=== PATIENT | female | born 1985 | race Caucasian/White ===

== ENCOUNTER → 2022-04-21 10:23 | Outpatient (CLI) | payer BC, SELFPAY ==
--- NOTE | ~2022-04-21 | XR_ITS ---
EXAMINATION: XR chest 2V DATE: 04/21/2022 10:54 INDICATION: Cough and shortness of breath. TECHNIQUE: Frontal and lateral views of the chest were obtained. COMPARISON: Chest single view 02/23/2005 FINDINGS: The chest demonstrates clear lungs without pneumonia, pleural effusion, or pneumothorax. Th e heart size is normal. IMPRESSION: 1. No acute cardiopulmonary disease. Reviewed, dictated and finalized at location A. CTOR OF SPEECH PATHOLOGY
== END ==
PROVIDERS: PCP Physician Assistant; Visit Provider Physician Assistant
DX: R05.9 Cough, unspecified (principal)
CPT/HCPCS: 71046

== ENCOUNTER → 2022-09-21 10:45 | Outpatient (CLI) | payer BC, SELFPAY ==
--- NOTE | ~2022-09-21 | XR_ITS ---
EXAM: XR thoracic spine 3V DATE: 09/21/2022 11:11 HISTORY: PAIN IN THORACIC SPINE x 2 mos w/o injury . COMPARISON: None available. FINDINGS: Mild scoliosis. Vertebral body alignment intact. Vertebral body heights preserved. No disc space narrowing. No traumatic malalignment or fracture. Visualized lung parenchyma is clear. IMPRESSION: Unremarkable thoracic spine radiograph findings. Reviewed, dictated and finalized at location K.
== END ==
PROVIDERS: PCP Physician Assistant; Visit Provider Physician Assistant
DX: M54.6 Pain in thoracic spine (principal)
CPT/HCPCS: 72072

== ENCOUNTER 2024-04-19 10:17 | Outpatient (CLI) | payer BC, SELFPAY ==
--- NOTE | ~2024-04-19 | US_ITS ---
EXAM: Focused ultrasound examination of the soft tissues of the right wrist HISTORY: GANGLION CYST OF R WRIST TECHNIQUE: Sonographic evaluation of the soft tissues of the right wrist were performed assessing gra yscale appearance and color Doppler flow. COMPARISON: None. FINDINGS: Within the area of clinical concern is a well-circumscribed focus of mixed echogenicity measuring 17 x 5.2 x 12 mm. This area demonstrates thickened severino. No pedicle is demonstrated on static imaging. Cine images demonstrate the presence of a pedicle, as well as nerve fibers for which the presence of a ganglion cyst is suspected. IMPRESSION: Focused ultrasound examination of the area of clinical concern are most suspicious for a ganglion cys t along the volar surface of the right wrist. If clinical suspicion persists, further evaluation with MRI may be performed. Reviewed, dictated and finalized at location A. [employer]IST IMPRESSION: Focused ultrasound examination of the area of clinical concern are most suspici ous for a ganglion cyst along the volar surface of the right wrist. If clinical suspicion persists, further evaluation with MRI may be performed.
== END 2024-04-19 10:18 | disposition home or self-care (01) ==
LOC: GOSHIMG 10:17
PROVIDERS: PCP Plastic Surgery; Visit Provider Physician Assistant
DX: M67.431 Ganglion, right wrist (principal)
CPT/HCPCS: 76882

== ENCOUNTER 2024-04-23 10:06 | Outpatient (CLI) | payer BC, SELFPAY ==
--- NOTE | ~2024-04-23 | XR_ITS ---
EXAMINATION: XR hand RT min 3V DATE: 04/23/2024 10:27 INDICATION: Ganglion, right wrist. TECHNIQUE: 3 views of right hand were obtained. COMPARISON: None. FINDINGS: Alignment is normal. No fracture. Joint spaces are normal. IMPRESSION: 1. Normal right hand. Reviewed, dictated and finalized at location A. RANCE COLLECTOR IMPRESSION: 1. Normal right hand.
--- OUTSIDE RECORDS SUMMARY | 2024-04-23 10:16 | XMS_ITS | Data Portability ---
Author Organization [facility] BRUNA[facility] Ann Address [address] [facility] [place] [address] Care Team Providers Care Coconut Boiler Name Role Phone LUPIS IRELAND Primary Care Provider Unavailab le Assessment Encounter Date Assessment Date Assessment LastModified by Organization Details LastModified Time 10/25/2023 10/25/2023 eye exam due dental UTD pap smear this fall mammogram will be due labs due. [email or web address] Not available 10/25/2023 15:03:53 Plan of Treatment Reminders Order Date Submit Date Provider Last Modified By Organization Details Last Modified Time Details Appointments None recorded. Lab PPD (purified protein derivative ), skin test 2023 024 SHAHIDA In-Office Order, Internal Use Only DO Not Attach Compendium DO Not Attach Compendium, Do Not Delete/merge, [id number] 4 10:20:48 amylase, serum or plasma 2023 024 [email or web address] [facility], [address], [place], [address], 5 11:34:48 lipase, serum or plasma 2023 024 [email or web address] [facility], [address], [place], [address], 5 11:34:49 CMP, serum or plasma 2023 024 [email or web address] [facility], [address], [place], [address], 5 11:34:49 CBC w/ auto diff 2023 024 [email or web address], [address], [place], [address], 5 11:34:49 TSH + free T4, serum 2023 024 [email or web address] [facility], [address], [place], [address], 5 14:55:39 HbA1c (hemoglobi n A1c), blood 2023 024 [email or web address] [facility], [address], [place], [address], 5 11:34:49 lipid panel, serum 2023 024 [email or web address], [address], [place], [address], 5 11:34:49 Referral hand surgeon referral 2024 025 PAUL Estrada MD, [address] [facility] [address], [place], [address], 11:46:34 Procedures None recorded. Surgeries None recorded. Imaging US, wrist 2024 025 [facility], [facility] [facility], [address], [place], [address], 5 08:52:29 XR, chest, 2 view [address] [facility], [address], [address], [place], [address], 5 11:35:23 US, gallbladde r 2023 024 [facility], [facility], [address], [place], [address], 5 11:35:23 Medication Orders Tubersol 5 tub. unit/0.1 mL intraderma l injection solution 2023 024 [email or web address] Not available 4 12:12:02 famotidine 40 mg tablet 2023 024 [email or web address] [facility], [address] [place], [address], 4 21:40:47 Linzess 145 mcg capsule 2023 025 [facility], [address] [place], [address], 5 10:37:35 Qulipta 60 mg tablet 2023 024 [facility], [address] [place], [address], 4 12:56:53 alprazolam 0.25 mg tablet 2023 025 [facility], [address] [place], [address], 5 10:37:47 Patient TargetsNo targets recorded. Patient InstructionsNo instructions recorded. Reason for Referral Hand Surgeon Referral for Ga nglion cyst of right wrist consult on right wrist cyst. Referring Physician: uLpis Ireland, Internal Medicine, Encounter Date: 04/01/2024 Results Created Date Observation Date Name Description Value Unit Range Abnormal Flag Note LastModifiedBy Organization Detail LastModifiedTime 02/29/20 24 02/29/2024 PPD (raj fied prote in deriv ative ), skin test Result Negati ve Not Available In-Office Order Internal Use Only DO Not Attach Compendium DO Not Attach Compendium, Do Not Delete/merge, [id number] 02/26/2024 11:42:30 04/22/19 25 04/19/2024 US, wrist No observ ation record ed. [email or web address] [facility] [address] [facility] [address], [place], [address], 04/22/2024 15:32:27 Result Notes None recorded. Problems Name Problem SNOMED Code Status Onset Date Resolution Date Notes Provider Name and Address Organization Details Recorded Time Body mass index 25-29 - overweight 167514329 Active 2023 KINSEY Leblanc Attn: Cintia thompson,[address] [facility], [place], [address], [place] [facility] 4 14:54:14 Hyperlipide zainab 03694427 Active 2023 KINSEY Leblanc Attn: Cintia thompson,[address] [facility], [place], [address], [place] [facility] 4 12:55:08 Migraine 56598582 Active 2023 KINSEY Leblanc Attn: Cintia thompson,[address] [facility], [place], [address], [place] [facility] 4 12:55:10 Irritable bowel syndrome characteriz ed by constipsean n 418766500 Active 2023 KINSEY Leblanc Attn: Cintia thompson,[address] [facility], [place], [address], [place] [facility] 4 12:56:15 Feeling stressed 492009043 Active 2023 KINSEY Leblanc Attn: Cintia thompson,[address] [facility], [place], [address], [place] [facility] 4 12:56:24 Long-term drug therapy Active 2023 KINSEY Leblanc Attn: Cintia thompson,[address] [facility], [place], [address], [place] [facility] 4 12:56:40 Ganglion cyst of right wrist 7039490124229 09 Active 2024 KINSEY Leblanc Attn: Cintia thompson,[address], [place], [address], [place] [facility] 08:10:35 Problem Notes None recorded. Procedures Surgical History Date Name Laterality Status Provider Name and Address Organization Details Recorded Time section completed Buzz Morrow [place] - [facility] 10/25/2023 14:31:43 Imaging Results Imaging Date Name Status LastModified by Organizatio n Details LastModified Time 04/19/2024 US, wrist active [email or web address] [facility] [address] [facility] [address], [place], [address], 04/22/2024 15:32:27 Procedure Notes None recorded. Medical Equipment None Reported. Allergies Allergen ID Allergen Name Allergen Category Reaction Reaction Severity Criticality Documentation Date Start Date Code Code System Note Provider Name and Address Organization Details Recorded Time 839807 phentolam ine mesylate medicatio n Not available Not available Not available 10/25/2023 08195 0 RxNorm Not Available Not Available Not Available 709359 Reglan medicatio n Not available Not available Not available 10/25/2023 9230 RxNorm Not Available Not Available Not Available Medications Name Sig Start Date Stop Date Status Note LastModified by Organization Details LastModified Time Prescriptio n - Prior Authorizati on Request 10/24 completed Not Available Not Available Not Available azithromyci n 250 mg tablet 02/25 completed Not Available Not Available Not Available tizanidine 4 mg tablet 04/01 completed Not Available Not Available Not Available famotidine 40 mg tablet TAKE 1 TABLET BY MOUTH EVERY DAY active Not Available Not Available No t Available prednisone 20 mg tablet 02/25 completed Not Available Not Available Not Available Tubersol 5 tub. unit/0.1 mL intradermal injection solution Inject 0.1 mL by intraderm al route. 02/25 completed Not Available Not Available Not Available alprazolam 0.25 mg tablet Take 1 tablet twice a day by oral route as needed. 04/01 completed Not Available Not Available Not Available rosuvastati n 5 mg tablet Take 1 tablet every day by oral route. active Not Available Not Available No t Available rosuvastati n 10 mg tablet Take 1 tablet every day by oral route. 10/24 completed Not Available Not Available Not Available Linzess 145 mcg capsule 04/01 completed Not Available Not Available Not Available Ubrelvy 100 mg tablet take 1 tab po at onset of migraine, may repeat in 1 hour if needed. max 200mg/24 hours active Not Available Not Available No t Available Qulipta 60 mg tablet Take by oral route for 90 days. active Not Available Not Available No t Available Vitals Date Recorded Body height Body mass index (BMI) Body weight Respiratory rate Oxygen saturation Oxygen saturation in Arterial blood by Pulse oximetry Heart rate Systolic blood pressure Diastolic blood pressure Provider Name and Address Organization Details Last Updated DateTime 4 165.1 cm 25.5 kg/m2 45141.9 2 g 20 /min 100 % 100 % 84 /min 128 mm[Hg] 88 mm[Hg] Buzz Morrow MA [facility] 4 14:33:40 Date Recorded Systolic blood pressure Diastolic blood pressure Systolic blood pressure Diastolic blood pressure Provider Name and Address Organization Details Last Updated DateTime 10/25/2023 120 mm[Hg] 84 mm[Hg] 120 mm[Hg] 80 mm[Hg] KINSEY Leblanc Attn: [place], [address] , [facility] 4 14:59:11 Date Recorded Body height Body mass index (BMI) Body weight Oxygen saturation Oxygen saturation in Arterial blood by Pulse oximetry Heart rate Systolic blood pressure Diastolic blood pressure Provider Name and Address Organization Details Last Updated DateTime 5 165.1 cm 26.5 kg/m2 31463.1 9 g 100 % 100 % 113 /min 122 mm[Hg] 82 mm[Hg] Buzz Morrow MA [facility] 5 10:41:50 Social History Question Answer Notes LastModified by Organizat ion Details LastModified Time Tobacco Smoking Status Never Smoker Buzz Morrow MA null, [facility] 10/25/2023 14:29:44 Do You Have An Advance Directive? No Information not available 10/25/2023 What Is Your Level Of Alcohol Consumption? None Information not available 10/25/2023 Are You Blind Or Do You Have Difficulty Seeing? No Glasses Information not available 10/25/2023 What Is Your Level Of Caffeine Consumption? Occasional Coffee, Soda Information not available 10/25/2023 In The 14 Days Before Symptom Onset, Have You Had Close Contact With A Laboratory-confi rmed COVID-19 While That Case Was Ill? No Information not available 10/25/2023 In The 14 Days Before Symptom Onset, Have You Had Close Contact With A Person Who Is Under Investigation For COVID-19 While That Person Was Ill? No Information not available 10/25/2023 Have You Been To An Area Known To Be High Risk For COVID-19? No Information not available 10/25/2023 Are You Currently Employed? Yes Information not available 10/25/2023 Are You Deaf Or Do You Have Serious Difficulty Hearing? No Information not available 10/25/2023 What Type Of Diet Are You Following? REGULAR Information not available 10/25/2023 What Is Your Occupation? [employer]/ [employer] Information not available 10/25/2023 Are There Any Guns Present In Your Home? No Information not available 10/25/2023 What Was The Date Of Your Most Recent Tobacco Screening? 04/01/2024 Information not available 04/01/2024 Do You Use Your Seat Belt Or Car Seat Routinely? Yes Information not available 10/25/2023 Do You Have Smoke And Carbon Monoxide Detectors In Your Home? Yes Information not available 10/25/2023 Do You Use Any Illicit Or Recreational Drugs? No Information not available 10/25/2023 Do You Use Sunscreen Routinely? Yes Information not available 10/25/2023 Has Tobacco Cessation Counseling Been Provided? No Information not available 10/25/2023 Do You Or Have You Ever Used Any Other Forms Of Tobacco Or Nicotine? No Information not available 10/25/2023 Sex: Female Functional Status Question Answer Note LastModified by Organizat ion Details LastModified Time Are you able to care for yourself? Yes Information not available 10/25/2023 What is your exercise level? Occasional 2-3 x a week Information not available 10/25/2023 Mental Status None recorded. Family History Relationship Description Onset Age of this Age Resolved Age Notes LastModified by Organization Details LastModified Time Maternal Uncle Hypertensive disorder tcarterma Not available 2023 14:28:50 Father Hypercholest erolemia tcarterma Not available 2023 14:28:59 Maternal Grandmother Diabetes mellitus tcarterma Not available 2023 14:29:07 Maternal Grandfather Diabetes mellitus tcarterma Not available 2023 14:29:07 Maternal Grandfather Disorder of thyroid gland tcarterma Not available 2023 14:29:21 Paternal Grandmother Diabetes mellitus tcarterma Not available 2023 14:29:11 Paternal Grandfather Diabetes mellitus tcarterma Not available 2023 14:29:14 Unspecified Relation Malignant tumor of colon tcarterma Not available 2023 14:29:40 Medical History Condition Response Anemia N High Blood Pressure Y Atrial Fibrillation N High Cholesterol Y Acid Reflux (GERD) N Cancer N Headaches Y COPD N Gynecological History Statement/Question Response Flow Moderate Date of LMP 03/11/2024 Menses Monthly Y Duration of Flow (days) 3 Current Control Method None LMP Approximate Obstetrics History GPAL:G 2 P 0 0 0 1 Type Value Full Term 0 Induced 0 Spontaneous 0 Premature 0 Living 1 Ectopics 0 Total 2 Immunizations Vaccine Type Date Status Note Provider Nam e and Address Organization Details Recorded Time Influenza, MDCK, quadrivalent, PF 03/04/2021 completed DARYL Vill[place], [place] [facility] 12/27/2023 13:12:56 COVID-19 vaccine, vector-nr, rS-Ad26, PF, 0.5 mL 06/04/2020 completed Buzz Morrow [place] null, [place] [facility] 12/27/2023 13:12:56 Tdap 06/17/2019 completed DARYL Vill[place]ueva, [place] [facility] 12/27/2023 13:12:56 Influenza, split virus, quadrivalent, PF 01/21/2020 completed Buzz Morrow MA null, [place] - [facility] 12/27/2023 13:12:56 Influenza, split virus, trivalent, PF 02/26/2024 completed KINSEY Leblanc Attn: Accounting[address] [facility], [place], [address], [place] [facility] 03/28/2024 21:02:32 Past Encounters Encounter ID Performer Location Encounter Start Date Encounter Closed Date Diagnosis/Indication Diagnosis SNOMED-CT Code Diagnosis ICD10 Code Diagnosis Note [id number] KINSEY Leblanc [facility] [place] [address] [place] [address] 10/25/2023 14:15:53 10/25/2023 15:35:14 Body mass index 25-29 - overweight 762303534 Z68.25 Being is 25.5 Adult heal th examination 185635617 Z00.01 Annual wellness exam complete Persistent cough 1845452 02 R05.3 Patient reports 4 months of a cough that is wax and wane but has not resolved. We will check a baseline chest x-ray which the patient has been notified is not entirely diagnostic and CT scan of the chest will be pursued if needed. We will also start famotidine 40 mg daily empiricall y in case this is coming from a silent reflux drip and cough. Hyperlipidemia 27166197 E78.5 Patient is stable on rosuvastat in 5 mg daily and updated fasting lipid panel is due Migraine 94743299 G43.90 9 hx of failing: triptans, triptan nasal spray, topamax with side effects severe, and nsaid, and OCPs. ubrelvy works but still having > 14 headaches per month. Trial of qulipta 60mg daily. Long-term drug therapy 329214625 Z79.899 Labs ordered Nausea and vomiting 1693 1999 R11.2 Check amylase lipase, CMP and CBC and refer for ultrasound of the gallbladde r to evaluate nausea and vomiting Irritable bowel syndrome characterized by constipation 083449923 K58.1 Refill Linzess 145 mcg daily which has worked well for the patient in the past Diabetes m ellitus screening 615644741 Z13.1 A1c lab screening due for diabetes risk assessment Thyroid di sorder screening 168754187 Z13.29 Routine thyroid function panel ordered Feeling stressed 1945279 06 Z73.3 Prescripti on for p.r.n. alprazolam 0.25 mg twice daily as needed for breakthrou gh stress and anxiety [id number] KINSEY Leblanc [facility] [employer] [facility] [place] [address] [place] [address] 02/26/2024 10:52:05 02/26/2024 15:08:22 Administration of influenza vaccine 32048703 Z23 Tuberculos is screening 308599056 Z11.1 [id number] KINSEY Leblanc [facility] [employer] [facility] [place] [address] [place] [address] 04/01/2024 10:21:37 04/01/2024 11:41:56 Ganglion cyst of right wrist 8620266788 82400 M67.431 Check ultrasound of the right wrist to evaluate and confirm presence of ganglion cyst and then refer to hand specialist Health Concerns Section Related Observation LastModified by Organization Detai ls LastModified Time None Recorded Concern Status LastModified by Organization Details LastModified Time None Recorded Advance Directives Directive N: Payers Encounter Date Sequence Insurance Name Policy Number Policy Craft Covered Member ID Craft Member ID Guarantor Name 10/25/2023 1 [place] [id number] Crystal Reznack [id number] Crystal Reznack 02/26/2024 1 [place] [id number] Crystal Reznack [id number] Crystal Reznack 04/01/2024 1 [place] [id number] Mibio Reznack [id number] Mibio Reznack Notes Date Note Type Note Provider Name and Address Organization Details Recorded Time 4 text/html CoughReported bypatient.Severity:improvi ng Timing:better Context:non-smoker Associated Symptoms:no fever; no chills; no chest pain; no heartburn; no edema; no agitation; no wheezing; no post nasal drip;nausea;vomitingNotes: x 4 monthHeadacheReported bypatient.Notes:Patient also is stable on Ubrelvy 100 mg as needed therapy and is still having significant amount of headaches per month greater than 14 per month. She has an extensive history of trying and failing multiple options. We will discuss this in the assessment and plan with new treatment options available to her.HyperlipidemiaReported bypatient.Notes:Patient is taking rosuvastatin 5 mg daily for her hyperlipidemia. IBS with constipation-patient has been stable on Linzess 145 mcg daily. Nausea and vomiting are a new complaint that patient has reported today on review of systems and HPI. She is concerned about her gallbladder and would like to have this evaluated along with lab work. Patient is overall having some increased stress in her life and she does not want something for daily treatment but is looking for something on an as-needed basis. KINSEY Leblanc Attn: Accounting,[address] [facility], [place], [address], [facility] [place] 11/05/2023 12:57:58 5 text/html Musculoskeletal PainReported bypatient.Location:right arm Severity:worsening Duration:present <1 month Timing:constant Context:overuse Aggravating factors:movement/positioni ng Associated Symptoms:no fever; no weak limbs; no tinglingNotes:c\o growth on R lateral thumb area, noticed last week, having pains at times, is able to use it, Pt states that on she noticed some pain in her arm and she started holding it and noticed the nodule, States that it has progressively gotten worse pain radiates into her wrist/ forearm and down thumb She has had some numbness and tingling but the pain is the main issue. KINSEY Leblanc Attn: Accounting,[address] [facility], [place], [address], [facility] [place] 04/08/2024 08:11:29 OBGyn Episode No OBEpisode recorded.
--- OUTSIDE RECORDS SUMMARY | 2024-04-23 10:16 | XMS_ITS | Referral Summary ---
Author Organization [facility] [address] [facility] Address [address] [place] [address] Care Team Providers Care Key Account Executive Name Role Phone Ryan Delgadoden EUCEDA Primary Care Pr ovider Shukri Law MD Unavailable [phone] Eric Mohr MD Unavailable [phone] Encounters Date Type Department Care Team Description 03/20/2024 Telephone [facility] Maternal- Medicine [address] [facility] Outpatient Health 7th Floor [address] [place] [address] Mercedes Eason CMA Ultrasound from Last 3 Months Allergies Active Allergy Reactions Criticality Noted Date Comments Metoclopramide Hives,Anxiety Medium 12/09/2015 Metoclopramide Rash,Itching Medium 01/01/2019 Medications Ubrelvy 100 mg tablet 03/04/20 22 Active ondansetron ODT (ZOFRAN-ODT) 4 mg disintegrating tablet Take 1 tablet (4 mg total) by mouth every 8 (eight) hours as needed for nausea or vomiting 20 tablet 04/14/19 23 Active Additional Information Patient not taking.Reported on 01/04/2024 ibuprofen (ADVIL,MOTRIN) 800 mg tablet TAKE 1 TABLET (800 MG TOTAL) BY MOUTH ONCE FOR 1 DOSE TAKE ONE TABLET 30 MIN PRIOR TO PROCEDURE 04/14/19 23 Active oxyCODONE (ROXICODONE) 5 mg immediate release tablet 04/16/19 23 Active doxycycline monohydrate (MONODOX) 100 mg capsule TAKE 1 CAPSULE BY MOUTH IN THE MORNING AND 2 CAPSULES AT NIGHT BEFORE PROCEDURE 04/14/19 23 Active Qulipta 60 mg tablet 11/08/19 24 Active rosuvastatin (CRESTOR) 5 mg tablet Take 1 tablet (5 mg total) by mouth daily Active Active Problems Problem Noted Date Diagnosed Date Abnormal liver enzymes 03/31/2022 Chronic constipation 03/31/2022 Fatigue 03/31/2022 Muscle fatigue 03/31/2022 Overweight with body mass index (BMI) 25.0-29.9 03/31/2022 Poor concentration 03/31/2022 Vitamin D deficiency 03/31/2022 COVID-19 08/16/2021 Abnormal weight gain 06/30/2021 Hyperinsulinism 06/30/2021 Migraine 06/30/2021 Hyperlipidemia 04/07/2021 Acute contact dermatitis 01/15/2019 Multiple joint pain 01/01/2019 Overview (03/31/2022): Follow up after OBGYN appt so will know at C2 if we can get x-rays. Assessment & Plan (01/01/2019 11:54 AM CDT): Patient presents with a reported negative KIESHA and positive HLA-B27. Reports spinal and hip pain, peripheral joint pain and swelling, fatigue, SOB with stairs, dry eyes, Raynaud's, photosensitive facial rash, and brain fog. Getting Echo via pcp. Swelling and tenderness noted in a few MTP joints and tenderness in a few MCP joints on exam today. Lumbar spine and SI joints are tender and patient reports improvement in pain and stiffness with activity.Takes aleve otc with minimal benefit. Patient may be newly so will avoid x-rays. Symptoms and exam are suspicious for a spondyloarthritis vs CTD. Bilateral external hip pain is suspicious for trochanteric bursitis. Will order appropriate serologies and a right hand/wrist US to further evaluate. Follow up in 2 weeks. Sooner if needed. Seen with Dr. Mohr. 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 Expectant management: [] Mode of delivery: [] For C/S bottle of CHG 4% and hand out provided @ 36wks Teaching: [x] 1st visit [] 28-30 week [] 36 week care following delivery 07/19/2019 09/02/2019 Overview (07/23/2019): # ID: Afebrile. No signs/symptoms of infection. # Heme: EBL 800 mL. No symptoms acute blood loss anemia. # CV/Pulm: Pre-eclampsia with severe features - S/p 24hr PP magnesium sulfate. Initiated on NXL 30 daily, increased to 60mg on 07/21, now with BPs w/c (2 MR in 24 hours since nifed increased). CBC/CMP WNL, 24hr urine protein 177. Enrolled in home BP monitoring program. # GI/: Tolerating PO. Voiding spontaneously. # Pain: Pain is better controlled with APAP, ibuprofen, flexeril, oxycodone and gabapentin. Added lidocaine patch 07/21. # Post DVT prophylaxis: Patient has the following moderate risk factors: Age>35, BMI>30 and Preeclampsia. Her post prophylaxis plan is SCDs and early ambulation # MOC: Desire IUD at 6w PP visit # MOF: # Disposition: Continue routine postoperative care. Anticipate discharge today. # Nephrolithiasis: Continue home Flomax daily. Gestational hypertension, third trimester 07/06/2019 09/02/2019 Overview (07/06/2019): 07/06/19 multiple elevated blood pressures at home. Normotensive in [facility] with normal labs complicated by nep hrolithiasis in second trimester, antepartum 04/29/2019 06/24/2021 Supervision of other normal , antepartum 12/31/2018 09/02/2019 Overview (07/17/2019): -GHTN dx @ 32 wks. For twice weekly testing, weekly labs, growth q 3 weeks and 37 wk IOL - IOL 08/11/2019 @ 2000, pt aware. Polyhydramnios dx @ 33wks- weekly US/BPP 07/16 AGA 76% mild poly EDWAR 26 for repeat EDWAR in 1 week [x] Labs:1st trimester completed [x] Genetic Screening: CffDNA:Low probability [x] Baby ASA: YES- AMA and nullip [x] 1hr GCT at 24-28wks: 134 [x] Tdap (27-36wks): 06/17/2019 AE [] Flu Shot: [] Rhogam (if Rh neg): n/a, O+ [] GBS at 36 wks: [] [] control method: [] 39 weeks discussion of IOL vs. Expectant management: [] Mode of delivery: No circ: Girl Abnormal uterine bleeding 12/20/2016 Immunizations Immunization Administration Dates Next Due Tdap 06/17/2019 Social History Tobacco Use Types Packs/Day Years Used Date Smoking Tobacco: Never Smokeless Tobacco: Never Tobacco Cessation:Counseling Given: Not Answered Alcohol Use Standard Drinks/Week Comments Not Currently 0 (1 standard drink = 0.6 oz pur e alcohol) 1 glass of wine a month AUDIT-C Answer Date Recorded Frequency of Alcohol Consumption Not on file 01/04/2024 Q2: How many drinks containi ng alcohol do you have on a typical day when you are drinking? Patient does not drink Frequency of Binge Drinking Not on file 12/06 [place] Depression Scale Answer Date Recorded [place] Depression Scale Total 2 09/02/2019 The thought of harming myself has occurred to me . Never 09/02/2019 Comments No Sex and Gender Information Value Date Recorded Sex Assigned at Female 01/04/2024 10:50 AM CDT Legal Sex Female 8:31 AM MANAGING DIRECTOR ATLAS Gender Identity Female 01/04/2024 10:50 AM CDT Sexual Orientation Straight 02/07/2019 9: 13 AM MANAGING DIRECTOR ATLAS Last Filed Vital Signs Vital Sign Reading Time Taken Comments Blood Pressure 136/88 01/04/2024 10:44 AM CDT Pulse 91 04/06/2022 11:26 AM MANAGING DIRECTOR ATLAS Temperature 36.8 C (98.2 F) 04/06/2022 11:26 AM MANAGING DIRECTOR ATLAS Respiratory Rate 20 04/06/2022 11:2 6 AM MANAGING DIRECTOR ATLAS Oxygen Saturation 99% 04/06/2022 11: 26 AM MANAGING DIRECTOR ATLAS Inhaled Oxygen Concentration - - Weight 75.2 kg (165 lb 12.8 oz) 024 10:44 AM CDT Height 165.1 cm (5' 5 ) 01/04/2024 10:4 4 AM CDT Body Mass Index 27.59 01/04/2024 10:44 AM CDT Plan of Treatment Not on file Procedures Procedure Name Priority Date/Time Associated Diagnosis Comments 17 HYDROXYPROGESTERONE Routine 9:37 AM MANAGING DIRECTOR ATLAS Abnormal uterine bleeding (AUB) DHEA-SULFATE Routine 04/15/2024 9:37 AM MANAGING DIRECTOR ATLAS Abnormal uterine bleeding (AUB) TESTOSTERONE, TOTAL AND FREE, SERUM Routine 04/15/2024 9:37 AM MANAGING DIRECTOR ATLAS Abnormal uterine bleeding (AUB) LUTEINIZING HORMONE (LH) Routine 025 9:37 AM MANAGING DIRECTOR ATLAS Abnormal uterine bleeding (AUB) ESTRADIOL Routine 04/15/2024 9:37 AM MANAGING DIRECTOR ATLAS Abnormal uterine bleeding (AUB) CBC WITH AUTO DIFFERENTIAL Routine 04/15 9:37 AM MANAGING DIRECTOR ATLAS Abnormal uterine bleeding (AUB) HEMOGLOBIN A1C Routine 04/15/2024 9:34 AM MANAGING DIRECTOR ATLAS Abnormal uterine bleeding (AUB) FOLLICLE STIMULATING HORMONE Routine 04/15/2024 9:34 AM MANAGING DIRECTOR ATLAS Abnormal uterine bleeding (AUB) THYROID FUNCTION CASCADE Routine 025 9:34 AM MANAGING DIRECTOR ATLAS Abnormal uterine bleeding (AUB) HIGH RISK HPV DNA DETECTION WITH GENOTYPING Routine 01/04/2024 11:46 AM CDT Cervical cancer screening HEPATITIS C AB W/REFL TO HCV RNA, QN, PCR (REFL) Routine 01/01/2019 11:49 AM CDT from Last 3 Months or Most Recently Relevant to Health Maintenance Results * (ABNORMAL) CBC with auto differential (04/15/2024 9:37 AM MANAGING DIRECTOR ATLAS) WBC 4.3 3.8 - 10.8 Thousand/u L [facility] RBC, POC 4.91 3.80 - 5.10 Million/uL [facility] Hgb 14.6 11.7 - 15.5 g/dL [facility] Hct 45.9(H) 35.0 - 45.0 % [facility] MCV 93.5 80.0 - 100.0 fL [facility] MCH 29.7 27.0 - 33.0 pg [facility] MCHC 31.8(L) 32.0 - 36.0 g/dL [facility] Comment: For adults, a slight decrease in the calculated MCHC value (in the range of 30 to 32 g/dL) is most likely not clinically significant; however, it should be interpreted with caution in correlation with other red cell parameters and the patient's clinical condition. Rdw 12.0 11.0 - 15.0 % [facility] Platelets 288 140 - 400 Thousand/u L [facility] MPV 10.5 7.5 - 12.5 fL [facility] Neutrophils, abs 2,614 1,500 - 7,800 cells/uL [facility] Lymphocytes, abs 1,415 850 - 3,900 cells/uL [facility] Monocyte abs 241 200 - 950 cells/uL [facility] Eosinophils, abs 9(L) 15 - 500 cells/uL [facility] Basophils, abs 22 0 - 200 cells/uL [facility] Neutrophils 60.8 % [facility] Lymphocyte pct 32.9 % [facility] Monocytes 5.6 % [facility] Eosinophils 0.2 % [facility] Basophils 0.5 % [facility] Blood 04/15/2024 9:37 AM MANAGING DIRECTOR ATLAS 04/15/2024 9:37 AM MANAGING DIRECTOR ATLAS Narrative [facility] - 04/21/2024 7:52 PM MANAGING DIRECTOR ATLAS FASTING:YES FASTING: YES Jaylyn Gibbs MD LAB BLOOD ORDERABLES Fi nal Result Performing Organization Address City/[facility]/ZIP Co de Phone Number [facility] [address] [place] [address] * 17-Hydroxyprogesterone (04/15/2024 9:37 AM MANAGING DIRECTOR ATLAS) 17-hydroxyproges terone 33 ng/dL [facility], Comment: Adult Female Reference Ranges for 17-Hydroxyprogesterone: Pre-Menopausal Mid Follicular: 23-102 ng/dL Pre-Menopausal Surge: 67-349 ng/dL Pre-Menopausal Mid Luteal: 139-431 ng/dL Postmenopausal Phase: < or = 45 ng/dL : First Trimester: 78-457 ng/dL Second Trimester: 90-357 ng/dL Third Trimester: 144-578 ng/dL This test was developed and its analytical performance characteristics have been determined by [facility]. It has not been cleared or approved by FDA. This assay has been validated pursuant to the CLIA regulations and is used for clinical purposes. Blood 04/15/2024 9:37 AM MANAGING DIRECTOR ATLAS 04/15/2024 9:37 AM MANAGING DIRECTOR ATLAS Narrative [facility] - 04/21/2024 7:52 PM MANAGING DIRECTOR ATLAS FASTING:YES FASTING: YES Jaylyn Gibbs MD LAB BLOOD ORDERABLES Fi nal Result Performing Organization Address [facility]/ZIP Co de Phone Number [facility], [address] [place] [address] * DHEA-sulfate (04/15/2024 9:37 AM MANAGING DIRECTOR ATLAS) DHEA-S 97 19 - 237 mcg/dL [facility] Blood 04/15/2024 9:37 AM MANAGING DIRECTOR ATLAS 04/15/2024 9:37 AM MANAGING DIRECTOR ATLAS Narrative [facility] - 04/21/2024 7:52 PM MANAGING DIRECTOR ATLAS FASTING:YES FASTING: YES us Jaylyn Gibbs MD LAB BLOOD ORDERABLES Fi nal Result [facility] [address] [place] [address] * Estradiol (04/15/2024 9:37 AM MANAGING DIRECTOR ATLAS) Pathologist [facility] Estradiol 70 pg/mL [facility] Comment: Reference Range Follicular Phase: 19-144 Mid-Cycle: 64-357 Luteal Phase: 56-214 Postmenopausal: < or = 31 Reference range established on post-pubertal patient population. No pre-pubertal reference range established using this assay. For any patients for whom low Estradiol levels are anticipated (e.g. males, pre-pubertal children and hypogonadal/post-menopausal females), the [facility] Estradiol, Ultrasensitive, LCMSMS assay is recommended (order code 29708). Please note: patients being treated with the drug fulvestrant (Faslodex(R)) have demonstrated significant interference in immunoassay methods for estradiol measurement. The cross reactivity could lead to falsely elevated estradiol test results leading to an inappropriate clinical assessment of estrogen status. [facility] order code [id number], Ultrasensitive LC/MS/MS demonstrates negligible cross reactivity with fulvestrant. Blood 04/15/2024 9:37 AM MANAGING DIRECTOR ATLAS 04/15/2024 9:37 AM MANAGING DIRECTOR ATLAS Narrative [facility] - 04/21/2024 7:52 PM MANAGING DIRECTOR ATLAS FASTING:YES FASTING: YES us Jaylyn Gibbs MD LAB BLOOD ORDERABLES Fi nal Result [facility] [address] [place] [address] * Testosterone, Total and Free, Serum (04/15/2024 9:37 AM MANAGING DIRECTOR ATLAS) Testosterone 17 2 - 45 ng/dL [employer] Comment: For additional information, please refer to https://education.[employer]/faq/TFX538 (This link is being provided for informational/educational purposes only.) (Note) This test was developed and its analytical performance characteristics have been determined by [employer]. It has not been cleared or approved by the FDA. This assay has been validated pursuant to the CLIA regulations and is used for clinical purposes. Testosterone, free 2 0.1 - 6.4 pg/mL [email or web address] Comment: (Note) This test was developed and its analytical performance characteristics have been determined by [employer]. It has not been cleared or approved by the FDA. This assay has been validated pursuant to the CLIA regulations and is used for clinical purposes. [facility] [address] [address],[address] [place] [address] Sherman Mac MD, PhD Sex hormone binding globulin 39.5 17 - 124 nmol/L [facility] Blood 04/15/2024 9:37 AM MANAGING DIRECTOR ATLAS 04/15/2024 9:37 AM MANAGING DIRECTOR ATLAS Narrative [facility] - 04/21/2024 7:52 PM MANAGING DIRECTOR ATLAS FASTING:YES FASTING: YES Jaylyn Gibbs MD LAB BLOOD ORDERABLES Fi nal Result [facility] [address] [facility] [place] [address], [address] [place] [address] * LH (04/15/2024 9:37 AM MANAGING DIRECTOR ATLAS) Pathologist [facility] LH 14.9 mIU/mL [facility] Comment: Reference Range Follicular Phase 1.9-12.5 Mid-Cycle Peak 8.7-76.3 Luteal Phase 0.5-16.9 Postmenopausal 10.0-54.7 Blood 04/15/2024 9:37 AM MANAGING DIRECTOR ATLAS 04/15/2024 9:37 AM MANAGING DIRECTOR ATLAS Narrative [facility] - 04/21/2024 7:52 PM MANAGING DIRECTOR ATLAS FASTING:YES FASTING: YES Jaylyn Gibbs MD LAB BLOOD ORDERABLES Fi nal Result [facility] [address] [place] [address] * Thyroid Function [place] (04/15/2024 9:34 AM MANAGING DIRECTOR ATLAS) [facility] TSH 1.81 mIU/L [facility] Comment: Reference Range > or = 20 Years 0.40-4.50 Ranges First trimester 0.26-2.66 Second trimester 0.55-2.73 Third trimester 0.43-2.91 Blood 04/15/2024 9:34 AM MANAGING DIRECTOR ATLAS 04/15/2024 9:34 AM MANAGING DIRECTOR ATLAS Narrative [facility] - 04/16/2024 5:20 AM MANAGING DIRECTOR ATLAS FASTING:YES FASTING: YES Jaylyn Gibbs MD LAB BLOOD ORDERABLES Fi nal Result Performing Organization Address [facility] Co de Phone Number [facility] [address] [place] [address] * Hemoglobin A1c (04/15/2024 9:34 AM MANAGING DIRECTOR ATLAS) [facility] Hgb A1C 5.4 <5.7 % of total Hgb [facility] Comment: For the purpose of screening for the presence of diabetes: <5.7% Consistent with the absence of diabetes 5.7-6.4% Consistent with increased risk for diabetes (prediabetes) > or =6.5% Consistent with diabetes This assay result is consistent with a decreased risk of diabetes. Currently, no consensus exists regarding use of hemoglobin A1c for diagnosis of diabetes in children. According to [place] Diabetes Association (ADA) guidelines, hemoglobin A1c <7.0% represents optimal control in non- diabetic patients. Different metrics may apply to specific patient populations. Standards of Medical Care in Diabetes(ADA). Blood 04/15/2024 9:34 AM MANAGING DIRECTOR ATLAS 04/15/2024 9:34 AM MANAGING DIRECTOR ATLAS Narrative [facility] - 04/16/2024 5:20 AM MANAGING DIRECTOR ATLAS FASTING:YES FASTING: YES Jaylyn Gibbs MD LAB BLOOD ORDERABLES nal Result [facility] [address] [place] [place] [address] * Follicle stimulating hormone (04/15/2024 9:34 AM MANAGING DIRECTOR ATLAS) [facility] FSH 11.1 mIU/mL [facility] Comment: Reference Range Follicular Phase 2.5-10.2 Mid-cycle Peak 3.1-17.7 Luteal Phase 1.5- 9.1 Postmenopausal 23.0-116.3 Blood 04/15/2024 9:34 AM MANAGING DIRECTOR ATLAS 04/15/2024 9:34 AM MANAGING DIRECTOR ATLAS Narrative [facility] - 04/16/2024 5:20 AM MANAGING DIRECTOR ATLAS FASTING:YES FASTING: YES Result [facility] Jaylyn Gibbs MD LAB BLOOD ORDERABLES [facility] Result Performing Organization Address City/[facility] Co de Phone Number [facility] [address] [place] [address] * High Risk HPV DNA Detection with Genotyping (Molecular component) (01/04/2024 11:46 AM CDT) [facility] HPV HR 16 Not Detected Not Detected [facility] HPV HR 18 Not Detected Not Detected [facility] HPV HR Non 16/18 Not Detected Not Detected [facility] Comment: Interpretive Data Nucleic acid amplification for detection of high-risk Human Papilloma virus (HPV) is performed by the Darlene Bing 6800 HPV test. This assay specifically detects HPV-16 and HPV-18 genotypes. The following HPV genotypes are detected as high-risk HPV: HPV-31, 33, 35, ,39, 45, 51, 52, 56, 58, 59, 66, and 68. This assay has been approved by the [place] Food and Drug Administration for detection of HPV in cervical specimens collected by a physician using an endocervical brush/spatula or cervical broom and placed in the ThinPrep Pap Test PreservCyt collection containers. The performance characteristics of this test have been verified by the [facility] Molecular Infectious Disease laboratory. Correlate with separately reported cytology results, as applicable. Interpretive data last revised 22 Endocervical 01/04/2024 11:4 6 AM CDT 01/05/2024 9:09 AM CDT Narrative JOSE SAHA - 01/05/2024 8:20 PM CDT Clinical history and diagnosis->screening Number of vials->1 Testing type->Screening Last menstrual period (date if known)->12/19/23 Menstrual status->Irregular us Jaylyn Gibbs MD LAB BODY FLUIDS AND STO OLS ORDERABLES Final Result [facility] [address] [facility] Department [place] [address] [facility] * HEPATITIS C AB W/REFL TO HCV RNA, QN, PCR (REFL) (01/01/2019 11:49 AM CDT) Hep C Ab NON-REACT YOLANDA NON-REACT YOLANDA [facility] [place] Comment: Our records indicate that you have ordered a client custom reflex order code. Only the initial test was performed because we do not have a client custom reflex testing authorization request form on file for you. Please contact a accounts receivable representative if you would like additional testing done on this patient or contact your bilingual spanish inbound sales to obtain a client custom reflex testing authorization request form. SIGNAL TO CUT-OFF 0.01 <1.00 [facility] [place] Comment: HCV antibody was non-reactive. There is no laboratory evidence of HCV infection. In most cases, no further action is required. However, if recent HCV exposure is suspected, a test for HCV RNA (test code 09131) is suggested. For additional information please refer to http://education.[employer]/faq/LCX30a5 (This link is being provided for informational/ educational purposes only.) 01/01/2019 11:4 9 AM CDT 01/01/2019 11:50 AM CDT Narrative Resulting Agency Comment Performing Organization Information: Site ID: [place] Name: [facility] Address: [address] [address] Director: Ming Tay D.O., MPH Marce EUCEDA LAB BLOOD ORDERABLES Final Result [facility] [place] from Last 3 Months or Most Recently Relevant to Health Maintenance Insurance [employer] OPEN ACCESS [employer] Advance Directives For more information, please contact: [phone] * Full Code (Latest Code Status on File) Date Activated Date Inactivated Comments 07/19/2019 12:49 PM 07/23/2019 7:46 PM * Full Code Date Activated Date Inactivated Comments 07/17/2019 7:57 PM 07/19/2019 12:49 PM Care Teams Key Account Executive Relationship Specialty Start Date End Date Lupis Delgado PA PCP - General Physician Front Office Specialist 12/10/18 Shukri Law MD 12/10/18 Eric Mohr MD [address] [facility] [address] [place] [address] Consulting Physician Rheumatology 12/10/18
--- OUTSIDE RECORDS SUMMARY | 2024-04-23 10:16 | XMS_ITS | Clinical Summary ---
Author Organization [facility] [address] [facility] Address [address] [place] [address] Care Team Providers Care Music Library Assistant Name Role Phone Lpuis Delgadomohan EUCEDA Primary Care Pr ovider Shukri Law MD Unavailable [phone] Eric Mohr MD Unavailable Allergies Active Allergy Reactions Criticality Noted Date [...] elevated blood pressures at home. Normotensive in [facility] with normal labs complicated by nep hrolithiasis [...] No circ: Girl Abnormal uterine bleeding 12/20/2016 Encounters Date Type Department Care Team Description 03/20/2024 Telephone [facility] Maternal- Medicine [address] [facility] Outpatient Health 7th Floor [address] [place] [address] Mercedes Eason CMA Ultrasound from Last 3 Months Immunizations Immunization Administration Dates Next Due Tdap 06/17/2019 Surgical History Surgery Date Site/Laterality Comments NH DILATION & CURETTAGE DX&/ THER NONOBSTETRIC Dilation And Curettage - (Added by TW Conv) [place] ENDOMETRIAL BX W/WO ENDOCERVIX BX W/O DILAT SPX Endometrial Biopsy By Hysteroscopy - (Added by TW Conv) LAPAROSCOPY SECTION Medical History Medical History Date Comments Personal history of other di seases of the female genital tract History of abnormal uterine bleeding - (Added by TW Conv) Migraine Endometriosis Chronic kidney disease Kidney stones Migraine High cholesterol Family History Medical History Relation Name Comments Hyperlipidemia Father High choleste rol - (Added by TW Conv) Hypertension Father Family history of hypertension - (Added by TW Conv) Asthma Maternal Grandfather Family history of asthma - (Added by TW Conv) Colon cancer Maternal Grandfather Family history of colon cancer - (Added by TW Conv) Diabetes type II Maternal Grandfather Fam rachael history of type 2 diabetes mellitus - (Added by TW Conv) Emphysema Maternal Grandfather Family history of emphysema - (Added by TW Conv) Heart disease Maternal Grandfather Family history of cardiac disorder - (Added by TW Conv) Thyroid cancer Maternal Grandfather Famil y history of thyroid cancer - (Added by TW Conv) Hyperlipidemia Mother High choleste rol - (Added by TW Conv) Hypertension Mother Family history of hypertension - (Added by TW Conv) Multiple sclerosis Mother's Sister Family history of multiple sclerosis - (Added by TW Conv) Heart attack Paternal Grandfather Family history of myocardial infarction - (Added by TW Conv) Heart disease Paternal Grandfather Family history of cardiac disorder - (Added by TW Conv) Relation Name Status Comments Father Alive Maternal Grandfather Mother Alive Mother's Sister Paternal Grandfather Social History Tobacco Use Types Packs/Day Years [...] of Binge Drinking Not on file 12/06 [place] Depression Scale Answer Date Recorded [place] Depression Scale Total 2 09/02/2019 The thought of harming myself has occurred to me . Never 09/02/2019 Comments No Sex and Gender Information Value Date Recorded Sex Assigned at Female 01/04/2024 10:50 AM CDT Legal Sex Female 8:31 AM AUGER OPERATOR Gender Identity Female 01/04/2024 10:50 AM CDT Sexual Orientation Straight 02/07/2019 9: 13 AM AUGER OPERATOR Obstetrics History Para Term AB IAB SAB Ectopic Multiple Livin g Live Births 2 1 0 1 0 0 0 0 0 1 1 Date Outcome GA Total Labor Labor/2nd/3rd Weight Sex Type Anes PTL Amina A1 A5 Name Clin 2019 33w 6d 0h 02m 0h 02m 2.25 kg (4 lb 15.4 oz) F CS-LT ranv Spinal N Livin g 6 6 ABBY CK,GI RLCRY Cassia Fabian MD Complications:None Delivery Location:[facility] Main C ampus ([facility] L AND D PROCEDURE) Comments 2019-AV- S/p pLTCS for preec lampsia with severe featuresBaby girl in NICU, just CPAP Last Filed Vital Signs Vital Sign Reading Time Taken Comments Blood Pressure 136/88 01/04/2024 10:44 AM CDT Pulse 91 04/06/2022 11:26 AM AUGER OPERATOR Temperature 36.8 C (98.2 F) 04/06/2022 11:26 AM AUGER OPERATOR Respiratory Rate 20 04/06/2022 11:2 6 AM AUGER OPERATOR Oxygen Saturation 99% 04/06/2022 11: 26 AM AUGER OPERATOR Inhaled Oxygen Concentration - - Weight 75.2 kg (165 lb 12.8 oz) 024 10:44 AM CDT Height 165.1 cm (5' 5 ) 01/04/2024 10:4 4 AM CDT Body Mass Index 27.59 01/04/2024 10:44 AM CDT Plan of Treatment Health Maintenance Due Date Last Done Comments Breast Cancer Screening-Mammogram 1983 Varicella Vaccines (1 of 2 - 13+ 2-dose series) 06/28/1996 Hepatitis B Screening 06/28/2001 Depression Screening 09/01/2020 09/02/2019 Covid-19 Vaccine (2 - 2023-2 5 season) 2023 06/04/2020 Influenza Vaccine (#1) 2023 , 01/21/2020, 03/06/2014 Cervical Cancer Screening 01/03/20252023, 01/04/2024 Regular Well Visit/Exam 18-64 01/03/2025, 07/01/2021, 03/21/2018 DTaP/Tdap/Td Vaccine (2 - Td or Tdap) 06/16/2029 06/17/2019 Hepatitis C Screening Completed 01/01/2019 HPV Vaccines Aged Out No longer eligi ble based on patient's age to complete this topic Pneumococcal vaccine <65 Aged Out No longer eligible based on patient's age to complete this topic Procedures Procedure Name Priority Date/Time Associated Diagnosis Comments 17 HYDROXYPROGESTERONE Routine 9:37 AM AUGER OPERATOR Abnormal uterine bleeding (AUB) DHEA-SULFATE Routine 04/15/2024 9:37 AM AUGER OPERATOR Abnormal uterine bleeding (AUB) TESTOSTERONE, TOTAL AND FREE, SERUM Routine 04/15/2024 9:37 AM AUGER OPERATOR Abnormal uterine bleeding (AUB) LUTEINIZING HORMONE (LH) Routine 025 9:37 AM AUGER OPERATOR Abnormal uterine bleeding (AUB) ESTRADIOL Routine 04/15/2024 9:37 AM AUGER OPERATOR Abnormal uterine bleeding (AUB) CBC WITH AUTO DIFFERENTIAL Routine 04/15 9:37 AM AUGER OPERATOR Abnormal uterine bleeding (AUB) HEMOGLOBIN A1C Routine 04/15/2024 9:34 AM AUGER OPERATOR Abnormal uterine bleeding (AUB) FOLLICLE STIMULATING HORMONE Routine 04/15/2024 9:34 AM AUGER OPERATOR Abnormal uterine bleeding (AUB) THYROID FUNCTION CASCADE Routine 025 9:34 AM AUGER OPERATOR Abnormal uterine bleeding (AUB) HIGH RISK HPV DNA DETECTION WITH GENOTYPING Routine 01/04/2024 11:46 AM CDT Cervical cancer screening HEPATITIS C AB W/REFL TO HCV RNA, QN, PCR (REFL) Routine 01/01/2019 11:49 AM CDT from Last 3 Months or Most Recently Relevant to Health Maintenance Results * (ABNORMAL) CBC with auto differential (04/15/2024 9:37 AM AUGER OPERATOR) WBC 4.3 3.8 - 10.8 Thousand/u L [facility] RBC, POC 4.91 3.80 - 5.10 Million/uL [facility] artemio Espinoza Hgb 14.6 11.7 - 15.5 g/dL [facility] art[facility]io [facility] Hct 45.9(H) 35.0 - 45.0 % [facility] [...] 1,500 - 7,800 cells/uL [facility] Aelxis Lymphocytes, abs 1,415 850 - 3,900 cells/uL [...] Diagnostics-S t Alexis Blood 04/15/2024 9:37 AM AUGER OPERATOR 04/15/2024 9:37 AM AUGER OPERATOR Narrative [facility] - 04/21/2024 7:52 PM AUGER OPERATOR FASTING:YES FASTING: YES us Jaylyn Gibbs MD LAB BLOOD ORDERABLES Fi nal Result [facility] [address] [place] [address] * 17-Hydroxyprogesterone (04/15/2024 9:37 AM AUGER OPERATOR) 17-hydroxyproges terone 33 ng/dL [facility] Comment: Adult Female Reference Ranges for 17-Hydroxyprogesterone: Pre-Menopausal Mid Follicular: 23-102 ng/dL Pre-Menopausal Surge: 67-349 ng/dL Pre-Menopausal Mid Luteal: 139-431 ng/dL Postmenopausal Phase: < or = 45 ng/dL : First Trimester: 78-457 ng/dL Second Trimester: 90-357 ng/dL Third Trimester: 144-578 ng/dL This test was developed and its analytical performance characteristics have been determined by [employer]. It has not been cleared or approved by FDA. This assay has been validated pursuant to the CLIA regulations and is used for clinical purposes. Blood 04/15/2024 9:37 AM AUGER OPERATOR 04/15/2024 9:37 AM AUGER OPERATOR Narrative [facility] - 04/21/2024 7:52 PM AUGER OPERATOR FASTING:YES FASTING: YES Jaylyn Gibbs MD LAB BLOOD ORDERABLES Fi nal Result Performing Organization Address [facility]/ZIP Co de Phone Number [facility], [address] [place] [address] * DHEA-sulfate (04/15/2024 9:37 AM AUGER OPERATOR) Pathologist [facility] DHEA-S 97 19 - 237 mcg/dL [facility]Ervin gutierrez Blood 04/15/2024 9:37 AM AUGER OPERATOR 04/15/2024 9:37 AM AUGER OPERATOR Narrative [facility] - 04/21/2024 7:52 PM AUGER OPERATOR FASTING:YES FASTING: YES Jaylyn Gibbs MD LAB BLOOD ORDERABLES Fi nal Result [facility] [address] [place] [address] * Estradiol (04/15/2024 9:37 AM AUGER OPERATOR) Estradiol 70 pg/mL [facility] Comment: Reference Range Follicular Phase: 19-144 Mid-Cycle: 64-357 Luteal Phase: 56-214 Postmenopausal: < or = 31 Reference range established on post-pubertal patient population. No pre-pubertal reference range established using this assay. For any patients for whom low Estradiol levels are anticipated (e.g. males, pre-pubertal children and hypogonadal/post-menopausal females), the [facility] Estradiol, Ultrasensitive, LCMSMS assay is recommended (order code 85345). Please note: patients being treated with the drug fulvestrant (Faslodex(R)) have demonstrated significant interference in immunoassay methods for estradiol measurement. The cross reactivity could lead to falsely elevated estradiol test results leading to an inappropriate clinical assessment of estrogen status. [facility] [facility] order code [id number], Ultrasensitive LC/MS/MS demonstrates negligible cross reactivity with fulvestrant. Blood 04/15/2024 9:37 AM AUGER OPERATOR 04/15/2024 9:37 AM AUGER OPERATOR Narrative [facility] - 04/21/2024 7:52 PM AUGER OPERATOR FASTING:YES FASTING: YES Jaylyn Gibbs MD LAB BLOOD ORDERABLES Fi nal Result [facility] [address] [place] [address] * Testosterone, Total and Free, Serum (04/15/2024 9:37 AM AUGER OPERATOR) [facility] Testosterone 17 2 - 45 ng/dL [facility] Comment: For additional information, please refer to https://education.Xlumena/faq/FEL407 (This link is being provided for informational/educational purposes only.) (Note) This test was developed and its analytical performance characteristics have been determined by [employer]. It has not been cleared or approved by the FDA. This assay has been validated pursuant to the CLIA regulations and is used for clinical purposes. Testosterone, free 2 0.1 - 6.4 pg/mL [facility] Comment: (Note) This test was developed and its analytical performance characteristics have been determined by [employer]. It has not been cleared or approved by the FDA. This assay has been validated pursuant to the CLIA regulations and is used for clinical purposes. [facility] [address] [address],[address] [facility] [address] Sherman Mac MD, PhD Sex hormone binding globulin 39.5 17 - 124 nmol/L [facility] Blood 04/15/2024 9:37 AM AUGER OPERATOR 04/15/2024 9:37 AM AUGER OPERATOR Narrative [facility] - 04/21/2024 7:52 PM AUGER OPERATOR FASTING:YES FASTING: YES Jaylyn Gibbs MD LAB BLOOD ORDERABLES Fi nal Result [facility] [address] [address], [address] [place] [address] * LH (04/15/2024 9:37 AM AUGER OPERATOR) LH 14.9 mIU/mL [facility] [facility] Comment: Reference Range Follicular Phase 1.9-12.5 Mid-Cycle Peak 8.7-76.3 Luteal Phase 0.5-16.9 Postmenopausal 10.0-54.7 Blood 04/15/2024 9:37 AM AUGER OPERATOR 04/15/2024 9:37 AM AUGER OPERATOR Narrative [facility] - 04/21/2024 7:52 PM AUGER OPERATOR FASTING:YES FASTING: YES Jaylyn Gibbs MD LAB BLOOD ORDERABLES Fi nal Result [facility] [address] [place] [address] * Thyroid Function [place] (04/15/2024 9:34 AM AUGER OPERATOR) TSH 1.81 mIU/L [facility] Comment: Reference Range > or = 20 Years 0.40-4.50 Ranges First trimester 0.26-2.66 Second trimester 0.55-2.73 Third trimester 0.43-2.91 Blood 04/15/2024 9:34 AM AUGER OPERATOR 04/15/2024 9:34 AM AUGER OPERATOR Narrative [facility] - 04/16/2024 5:20 AM AUGER OPERATOR FASTING:YES FASTING: YES Jaylyn Gibbs MD LAB BLOOD ORDERABLES Fi nal Result Performing Organization Address [facility] Co de Phone Number [facility] [address] [place] [address] * Hemoglobin A1c (04/15/2024 9:34 AM AUGER OPERATOR) Pathologist [facility] Hgb A1C 5.4 <5.7 % of total Hgb [facility] Comment: For the purpose of screening for the presence of diabetes: <5.7% Consistent with the absence of diabetes 5.7-6.4% Consistent with increased risk for diabetes (prediabetes) > or =6.5% Consistent with diabetes This assay result is consistent with a decreased risk of diabetes. Currently, no consensus exists regarding use of hemoglobin A1c for diagnosis of diabetes in children. According to [place] Diabetes Association (ADA) guidelines, hemoglobin A1c <7.0% represents optimal control in non- diabetic patients. Different metrics may apply to specific patient populations. Standards of Medical Care in Diabetes(ADA). Blood 04/15/2024 9:34 AM AUGER OPERATOR 04/15/2024 9:34 AM AUGER OPERATOR Narrative [facility] - 04/16/2024 5:20 AM AUGER OPERATOR FASTING:YES FASTING: YES Jaylyn Gibbs MD LAB BLOOD ORDERABLES Fi nal Result Performing Organization Address [facility] Co de Phone Number [facility] [address] [place] [address] * Follicle stimulating hormone (04/15/2024 9:34 AM AUGER OPERATOR) Pathologist [facility] FSH 11.1 mIU/mL [facility] Comment: Reference Range Follicular Phase 2.5-10.2 Mid-cycle Peak 3.1-17.7 Luteal Phase 1.5- 9.1 Postmenopausal 23.0-116.3 Blood 04/15/2024 9:34 AM AUGER OPERATOR 04/15/2024 9:34 AM AUGER OPERATOR Narrative [facility] - 04/16/2024 5:20 AM AUGER OPERATOR FASTING:YES FASTING: YES Jaylyn Gibbs MD LAB BLOOD ORDERABLES Fi nal Result [facility] [address] [address] [facility] [place] [address] * High Risk HPV DNA Detection with Genotyping (Molecular component) (01/04/2024 11:46 AM CDT) HPV HR 16 Not Detected Not Detected [facility] HPV HR 18 Not Detected Not Detected [facility] HPV HR Non 16/18 Not Detected Not Detected [facility] Comment: Interpretive Data Nucleic acid amplification for [...] been verified by the [facility] Molecular Infectious Disease laboratory. Correlate with separately reported cytology results, as applicable. Interpretive data last revised 22 Endocervical 01/04/2024 11:4 6 AM CDT 01/05/2024 9:09 AM CDT Narrative [facility] - 01/05/2024 8:20 PM CDT Clinical history and diagnosis->screening Number of vials->1 Testing type->Screening Last menstrual period (date if known)->12/19/23 Menstrual status->Irregular us Jaylyn Gibbs MD LAB BODY FLUIDS AND STO OLS ORDERABLES Final Result [facility] Department [place] [address] [facility] * HEPATITIS C AB W/REFL TO HCV [...] on file for you. Please contact a client support analyst if you would like additional testing done on this patient or contact your surgical sales representative to obtain a client custom reflex testing authorization request form. SIGNAL TO CUT-OFF 0.01 <1.00 [facility] [place] Comment: HCV antibody was non-reactive. There is no laboratory evidence of HCV infection. In most cases, no further action is required. However, if recent HCV exposure is suspected, a test for HCV RNA (test code 24123) is suggested. For additional information please refer to http://education.Xlumena/faq/DRA02l6 (This link is being provided for informational/ educational purposes only.) 01/01/2019 11:4 9 AM CDT 01/01/2019 11:50 AM CDT Narrative Resulting Agency Comment Performing Organization Information: Site ID: [place] Name: [facility] Address: [address] [place] [address] SHENG Glover [address] Director: Ming Tay D.O., MPH Marce EUCEDA LAB BLOOD ORDERABLES Final Result [facility] [place] from Last 3 Months or Most Recently Relevant to Health Maintenance Insurance [employer] [facility] [facility] [employer] OOS Advance Directives For more information, please contact: [phone] * Full Code (Latest Code Status on File) Date Activated Date Inactivated Comments 07/19/2019 12:49 PM 07/23/2019 7:46 PM * Full Code Date Activated Date Inactivated Comments 07/17/2019 7:57 PM 07/19/2019 12:49 PM Care Teams Music Library Assistant Relationship Specialty Start Date End Date Lupis Delgado PA PCP - General Physician Belting Inspector 12/10/18 Shukri Law MD 12/10/18 Eric Mohr MD [address] [facility] [address] [place] [address] Consulting Physician Rheumatology 12/10/18
== END 2024-04-23 10:07 | disposition home or self-care (01) ==
PROVIDERS: PCP Physician Assistant; Visit Provider Plastic Surgery
DX: M67.431 Ganglion, right wrist (principal)
CPT/HCPCS: 73130

== ENCOUNTER 2024-05-14 11:25 | Emergency (ER) | payer BC, SELFPAY ==
[2024-05-14] VITALS (7 sets, daily range): BP systolic 115–140; BP diastolic 81–107; PULSE 76–104; RESP 16–18; TEMP 36.8; O2SAT 99–100
--- NOTE | ~2024-05-14 | CT_ITS ---
CT brain wo con Ordering provider: Chloé Mccann PA-C History: 38 years Female with . syncope . Comparison: February 23, 2005 Technique: CT of the head without contrast. Radiation reduction technique utilized.The dose-length pr oduct was 605.33 mGy-cm. FINDINGS: BRAIN PARENCHYMA AND CSF SPACES: No midline shift, mass effect or hemorrhage. The brain parenchyma a nd CSF spaces are otherwise normal. VISUALIZED PARANASAL SINUSES: Well aerated. MASTOIDS: Well aerated. BONES: The bones appear intact. SOFT TISSUES: Visualized nasopharynx is normal. Superficial soft tissues are normal. IMPRESSION: No acute intracranial findings. Reviewed, dictated and finalized at location A.
--- NOTE | ~2024-05-14 | XR_ITS ---
EXAMINATION: XR chest 2V DATE: 05/14/2024 12:52 INDICATION: Syncope. TECHNIQUE: Frontal and lateral views of the chest were obtained. COMPARISON: Chest 2 views 04/21/2022 FINDINGS: There is no pneumonia, pleural effusion, or pneumothorax. The heart size is normal. IMPRESSION: 1. No acute cardiopulmonary disease. Reviewed, dictated and finalized at location B.
--- NOTE | 2024-05-14 12:25 | ED_ITS ---
HPI - Syncope General Chief Complaint: Syncope <Chloé Mccann PA-C - Last Filed: 05/17/24 09:29> Stated Complaint: syncope <Chloé Mccann PA-C - Last Filed: 05/17/24 09:29> Time Seen by Provider: 05/14/24 12:25 <Chloé Mccann PA-C - Last Filed: 05/17/24 09:29> Focused HPI: This is a 38 year old female that presents to the ER for syncope. She was walking out of the bathroom and passed out. Reports she hit her head. Reports a headache. She has never passed out before. No prodromal symptoms. Reports she does not feel normal, reports some nausea. Reports some palpitations. Denies chest pain, shortness of breath GENERAL: Well-appearing, well-nourished, and in no acute distress. HEAD: Normocephalic, atraumatic. CHEST: Clear to auscultation. ?No respiratory distress. HEART: Regular rate and rhythm.? NEURO: ?Alert and oriented x3. Patient screened in triage and initial orders placed.? ?Additional care and disposition to be based upon?diagnostic testing and treatment. <Chloé Mccann PA-C - Last Filed: 05/17/24 09:29> History of Present Illness HPI narrative: Agree with the HPI above. Will select that the patient had no seizure- like activity, regained consciousness quickly and was back to her normal mental status. Never happened before but she did admit to having some palpitations earlier this morning. Has never been evaluated by Cardiology or worn any kind of event monitor previously. Denies any symptoms at this time. <Shamir Ling MD - Last Filed: 05/14/24 16:50> Related Data Allergies/Adverse Reactions: Allergies Allergy/AdvReac Type Severity Reaction Status Date / Time metoclopramide (From Reglan) Allergy Hives Verified 04/23/24 09:36 <Chloé Mccann PA-C - Last Filed: 05/17/24 09:29> Review of Systems 2 Review of Systems: As reviewed above in HPI <Shamir Ling MD - Last Filed: 05/14/24 16:50> PMFSH Social History Social History: Social History Smoking status: Never smoker <Chloé Mccann PA-C - Last Filed: 05/17/24 09:29> Exam 2 Narrative: GENERAL: [Well-appearing, well-nourished, and in no acute distress.] HEAD: [Normocephalic, atraumatic.] EYES: [PERRLA and EOMI.] ENT: Nares clear, no rhinorrhea or epistaxis. Mucous membranes moist. NECK: Supple. CHEST: [Clear to auscultation. No respiratory distress.] HEART: [Regular rate and rhythm]. No murmur heard. [Normal peripheral pulses.] ABDOMEN: [Soft, nondistended], [nontender], [No rigidity or guarding] EXTREMITIES: Normal range of motion. [No edema.] SKIN: Warm, dry, no rash. NEURO: [No focal deficits]. Alert and oriented [x3.] PSYCH: [Normal mood and affect.] <Shamir Ling MD - Last Filed: 05/14/24 16:50> Course Vital Signs Vital signs: Vital Signs Temperature 98.2 F 05/14/24 11:27 Pulse Rate 102 H 05/14/24 11:27 Respiratory Rate 16 05/14/24 11:27 Blood Pressure 132/85 05/14/24 11:27 Pulse Oximetry 99 05/14/24 11:27 Oxygen Delivery Room Air 05/14/24 11:27 Temperature 98.2 F 05/14/24 11:27 Pulse Rate 76 05/14/24 16:55 Respiratory Rate 16 05/14/24 16:55 Blood Pressure 115/89 05/14/24 16:55 Pulse Oximetry 100 05/14/24 16:55 Oxygen Delivery Room Air 05/14/24 11:27 <Chloé Mccann PA-C - Last Filed: 05/17/24 09:29> Vital Signs Temperature 98.2 F 05/14/24 11:27 Pulse Rate 102 H 05/14/24 11:27 Respiratory Rate 16 05/14/24 11:27 Blood Pressure 132/85 05/14/24 11:27 Pulse Oximetry 99 05/14/24 11:27 Oxygen Delivery Room Air 05/14/24 11:27 Temperature 98.2 F 05/14/24 11:27 Pulse Rate 76 05/14/24 16:55 Respiratory Rate 16 05/14/24 16:55 Blood Pressure 115/89 05/14/24 16:55 Pulse Oximetry 100 05/14/24 16:55 Oxygen Delivery Room Air 05/14/24 11:27 <Shamir Ling MD - Last Filed: 05/14/24 16:50> MDM - Syncope MDM Narrative Medical decision making narrative: 38-year-old female presenting to the emergency department for syncope without any prodromal symptoms. She states she did wake up with some palpitations earlier but did not have any palpitations, chest pain, chest pressure, headache or vision changes prior to passing out. She was simply walking between rooms trying to find her daughter. Patient lost consciousness briefly, hit the ground and woke up several seconds later. No seizure shaking like activity according to the who heard the fall. Patient self is acting appropriately presently has normal vital signs. No history of DVT or PE, no history of cardiac dysrhythmia cardiac events. Symptoms are concerning for potential vasovagal syncope versus orthostatic symptoms the verses drop syncope from something like a thromboembolic event such as PE. Electrolyte disturbances or arrhythmia also possible but she is low risk factors and otherwise well- appearing. Broad workup was ordered including CBC, CMP, lipase, chest x-ray, EKG, D-dimer, troponin and a CT of the head. Patient frequent re-evaluated. Holter monitor ordered. Workup was reassuring, no leukocytosis or anemia. Normal platelet count. Negative D-dimer, negative troponin, EKG without any arrhythmia or ectopy. Normal coags, normal renal and hepatic function panel. Negative test. CT of the head without any acute intracranial findings. Chest x-ray with no acute cardiopulmonary disease. Cardiology came down and fitted the patient with a Holter monitor. She is safe and stable for discharge home at this time and provided the Cardiology follow-up instructions and paperwork. Patient's questions were answered she was discharged home at this time. She was given return precautions. <Chloé Mccann PA-C - Last Filed: 05/17/24 09:29> 38-year-old female presenting to the emergency department for syncope without any prodromal symptoms. She states she did wake up with some palpitations earlier but did not have any palpitations, chest pain, chest pressure, headache or vision changes prior to passing out. She was simply walking between rooms trying to find her daughter. Patient lost consciousness briefly, hit the ground and woke up several seconds later. No seizure shaking like activity according to the who heard the fall. Patient self is acting appropriately presently has normal vital signs. No history of DVT or PE, no history of cardiac dysrhythmia cardiac events. Symptoms are concerning for potential vasovagal syncope versus orthostatic symptoms the verses drop syncope from something like a thromboembolic event such as PE. Electrolyte disturbances or arrhythmia also possible but she is low risk factors and otherwise well- appearing. Broad workup was ordered including CBC, CMP, lipase, chest x-ray, EKG, D-dimer, troponin and a CT of the head. Patient frequent re-evaluated. Holter monitor ordered. Workup was reassuring, no leukocytosis or anemia. Normal platelet count. Negative D-dimer, negative troponin, EKG without any arrhythmia or ectopy. Normal coags, normal renal and hepatic function panel. Negative test. CT of the head without any acute intracranial findings. Chest x-ray with no acute cardiopulmonary disease. Cardiology is come down and fitted the patient with a Holter monitor. She is safe and stable for discharge home at this time and provided the Cardiology follow-up instructions and paperwork. Patient's questions were answered she was discharged home at this time. She was given return precautions. <Shamir Ling MD - Last Filed: 05/14/24 16:50> Medical Records Attestation: I reviewed the patient's medical records. <Shamir Ling MD - Last Filed: 05/14/24 16:50> Lab Data Attestation: I reviewed the patient's lab results. <Shamir Ling MD - Last Filed: 05/14/24 16:50> Result diagrams: 05/14/24 12:55 05/14/24 12:55 <Chloé Mccann PA-C - Last Filed: 05/17/24 09:29> Labs: Lab Results 05/14/24 05/14/24 Range/Units 12:55 13:02 WBC 7.4 (4.5-10.0) K/mm3 RBC 5.11 (4.2-5.4) M/mm3 Hgb 15.5 H (12.0-15.0) g/dL Hct 45.5 (37.0-47.0) % MCV 89.0 (80-100) fl MCH 30.3 (26-34) pg MCHC 34.1 (32-36) g/dl RDW 11.9 (11.5-14.5) % Plt Count 332 (150-375) k/mm3 MPV 9.5 (7.4-10.4) fl Immature Gran % (Auto) 0.1 (0-0.5) % Neut % (Auto) 65.4 (45.5-73.1) % Lymph % (Auto) 27.2 (18.3-44.2) % Patrick % (Auto) 6.8 (2.6-8.5) % Eos % (Auto) 0.1 (0-4.4) % Baso % (Auto) 0.4 (0.2-1.2) % Lymph # (Auto) 2.00 (0.9-3.2) K/mm3 Patrick # (Auto) 0.5 (0.1-0.6) K/mm3 Eos # (Auto) 0.0 (0-0.3) K/mm3 Baso # (Auto) 0.0 (0.0-0.1) K/mm3 Abs Immat Gran (auto) 0.01 (0.00-0.031) K/mm3 Absolute Neuts (auto) 4.8 (1.3-6.7) K/mm3 Absolute Nucleated RBC 0.000 (0.0-0.012) K/mm3 Nucleated RBC % 0.0 (0.0-0.2) % D-Dimer < 0.27 (<0.48) ug/mL Sodium 138 (137-145) mmol/L Potassium 4.9 (3.4-5.0) mmol/L Chloride 101 (98-107) mmol/L Carbon Dioxide 24 (22-30) mmol/L Anion Gap 13 H (4-12) mmol/L BUN 10 (7-17) mg/dL Creatinine 0.81 (0.7-1.0) mg/dL Estim Creat Clear Calc 72 ml/min Estimated GFR > 60 (59 - ) Glucose 91 (65-110) mg/dL Calcium 10.0 (8.4-10.2) mg/dL Total Bilirubin 1.1 (0.2-1.3) mg/dL AST 32 (14-36) U/L ALT 20 (6-35) U/L Alkaline Phosphatase 81 (38-126) U/L Troponin I < 0.012 (0.000-0.034) ng/mL Total Protein 9.0 H (6.3-8.2) g/dL Albumin 5.2 H (3.5-5.1) g/dL POC Urine HCG, Qual Negative (Negative) <Chloé Mccann PA-C - Last Filed: 05/17/24 09:29> Lab Results 05/14/24 05/14/24 Range/Units 12:55 13:02 WBC 7.4 (4.5-10.0) K/mm3 RBC 5.11 (4.2-5.4) M/mm3 Hgb 15.5 H (12.0-15.0) g/dL Hct 45.5 (37.0-47.0) % MCV 89.0 (80-100) fl MCH 30.3 (26-34) pg MCHC 34.1 (32-36) g/dl RDW 11.9 (11.5-14.5) % Plt Count 332 (150-375) k/mm3 MPV 9.5 (7.4-10.4) fl Immature Gran % (Auto) 0.1 (0-0.5) % Neut % (Auto) 65.4 (45.5-73.1) % Lymph % (Auto) 27.2 (18.3-44.2) % Patrick % (Auto) 6.8 (2.6-8.5) % Eos % (Auto) 0.1 (0-4.4) % Baso % (Auto) 0.4 (0.2-1.2) % Lymph # (Auto) 2.00 (0.9-3.2) K/mm3 Patrick # (Auto) 0.5 (0.1-0.6) K/mm3 Eos # (Auto) 0.0 (0-0.3) K/mm3 Baso # (Auto) 0.0 (0.0-0.1) K/mm3 Abs Immat Gran (auto) 0.01 (0.00-0.031) K/mm3 Absolute Neuts (auto) 4.8 (1.3-6.7) K/mm3 Absolute Nucleated RBC 0.000 (0.0-0.012) K/mm3 Nucleated RBC % 0.0 (0.0-0.2) % D-Dimer < 0.27 (<0.48) ug/mL Sodium 138 (137-145) mmol/L Potassium 4.9 (3.4-5.0) mmol/L Chloride 101 (98-107) mmol/L Carbon Dioxide 24 (22-30) mmol/L Anion Gap 13 H (4-12) mmol/L BUN 10 (7-17) mg/dL Creatinine 0.81 (0.7-1.0) mg/dL Estim Creat Clear Calc 72 ml/min Estimated GFR > 60 (59 - ) Glucose 91 (65-110) mg/dL Calcium 10.0 (8.4-10.2) mg/dL Total Bilirubin 1.1 (0.2-1.3) mg/dL AST 32 (14-36) U/L ALT 20 (6-35) U/L Alkaline Phosphatase 81 (38-126) U/L Troponin I < 0.012 (0.000-0.034) ng/mL Total Protein 9.0 H (6.3-8.2) g/dL Albumin 5.2 H (3.5-5.1) g/dL POC Urine HCG, Qual Negative (Negative) <Shamir Ling MD - Last Filed: 05/14/24 16:50> Imaging Data Attestation: I personally reviewed and interpreted this imaging study as follows: < Shamir Ling MD - Last Filed: 05/14/24 16:50> My impression: Impressions Head CT 05/14/24 12:51 IMPRESSION: No acute intracranial findings. Chest X-Ray 05/14/24 13:01 IMPRESSION: 1. No acute cardiopulmonary disease. <Shamir Ling MD - Last Filed: 05/14/24 16:50> Critical Care Time Critical Care Time Critical Care Time: No <Chloé Mccann PA-C - Last Filed: 05/17/24 09:29> Discharge Plan Discharge Clinical Impression: Syncope and collapse <Chloé Mccann PA-C - Last Filed: 05/17/24 09:29> Patient Disposition: Home, Self-Care <Chloé Mccann PA-C - Last Filed: 05/17/24 09:29> Condition: Stable <Chloé Mccann PA-C - Last Filed: 05/17/24 09:29> Instructions: Antibiotic Form, Syncope (ED) <Chloé Mccann PA-C - Last Filed: 05/17/24 09:29> Additional Instructions: Your workup appears very reassuring but we do not have an explanation for your syncopal event today. No heart enzyme elevations or blood clot concerns. Your CT scan when chest x-ray were normal. EKG normal. Follow-up with Cardiology regarding the Holter monitor., return at any time with any new or worsening concerns. <Chloé Mccann PA-C - Last Filed: 05/17/24 09:29> Patient Language: Tunisian <hCloé Mccann PA-C - Last Filed: 05/17/24 09:29> Other Ambulatory Orders: CA holter monitor 3-7 day (Routine) Timeframe: 1 Day Location: Determined by Patient Ordered By: Shamir Ling <Chloé Mccann PA-C - Last Filed: 05/17/24 09:29> Follow-up/Referrals: Danny,HAILEY Baugh [Primary Care Provider] - Chris Mcbride MD [Physician] - 1 Week (Syncope, Holter monitor placed in ED) <Chloé Mccann PA-C - Last Filed: 05/17/24 09:29> Time of Disposition: 16:49 <Chloé Mccann PA-C - Last Filed: 05/17/24 09:29> 16:49 <Shamir Ling MD - Last Filed: 05/14/24 16:50>
--- NOTE | 2024-05-14 12:26 | ECG_ITS ---
Test Date: 2024-05-14 12:32:17 Measurements Intervals [place] Rate: 103 P: 72 NC: 125 QRS: 94 QRSD: 80 T: -34 QT: 320 QTc: 420 Interpretive Statements SINUS TACHYCARDIA BORDERLINE RIGHT AXIS DEVIATION [QRS AXIS > 90] POSSIBLE RIGHT VENTRICULAR CONDUCTION DELAY [RSR (QR) IN V1/V2] NONSPECIFIC ST AND T-WAVE ABNORMALITY No previous ECG available for comparison Electronically Signed On 05-14-2024 15:04:31 CDT by Chris Mcbride M.D.
[2024-05-14 13:05] LABS: Basophils Percent Auto 0.4 % (0.2-1.2); Eosinophils Percent Auto 0.1 % (0-4.4); Hematocrit 45.5 % (37.0-47.0); Hemoglobin 15.5 g/dL (12.0-15.0); Immature Granulocyte Absolute 0.01 K/mm3 (0.00-0.031); Immature Granulocyte Percent A 0.1 % (0-0.5); Lymphocytes Percent Auto 27.2 % (18.3-44.2); Mean Corpuscular HGB Conc 34.1 g/dl (32-36); Mean Corpuscular Hemoglobin 30.3 pg (26-34); Mean Platelet Volume 9.5 fl (7.4-10.4); Monocytes Absolute Auto 0.5 K/mm3 (0.1-0.6); Monocytes Percent Auto 6.8 % (2.6-8.5); Neutrophils Absolute Auto 4.8 K/mm3 (1.3-6.7); Neutrophils Percent Auto 65.4 % (45.5-73.1); Platelet Count Result 332 k/mm3 (150-375); Red Blood Count 5.11 M/mm3 (4.2-5.4); Red Cell Distribution Width 11.9 % (11.5-14.5); White Blood Count 7.4 K/mm3 (4.5-10.0)
[2024-05-14 13:06] LABS: BEDSIDEPREGUCG Negative (Negative)
--- OUTSIDE RECORDS SUMMARY | 2024-05-14 13:11 | XMS_ITS | Data Portability ---
Author Organization [facility] Ann Address [address] [place] [address] Care Team Providers Care Claim Clinician Name Role Phone LUPIS IRELAND Primary Care [...] DO Not Attach Compendium, Do Not Delete/merge, [id number] 4 10:20:48 amylase, serum or plasma 2023 024 [email or web address] [facility], [address], [place], [address], 5 10:11:46 lipase, serum or plasma 2023 024 [email or web address] [facility], [address], [place], [address], 5 10:11:46 CMP, serum or plasma 2023 024 [email or web address] [facility], [address], [place], [address], 5 10:11:46 CBC w/ auto diff 2023 024 [email or web address] [facility], [address], [place], [address], 5 10:11:47 TSH + free T4, serum 2023 024 [email or web address] [facility], [address], [place], [address], 5 14:55:39 HbA1c (hemoglobi n A1c), blood 2023 024 [email or web address] [facility], [address], [place], [address], 5 10:11:47 lipid panel, serum 2023 024 [email or web address] [facility], [address], [place], [address], 5 10:11:47 Referral hand surgeon referral 2024 025 [email or web address] Jennifer Estrada MD, [address], [place], [address], 5 11:54:10 Procedures None recorded. Surgeries None recorded. Imaging US, wrist 2024 025 [facility], [facility] [facility], [address], [place], [address], 5 08:52:29 XR, chest, 2 view 2023 024 [email or web address], [address], [place], [address], 5 11:35:23 US, gallbladde r 2023 024 [facility], [facility], [address], [place], [address], 5 11:35:23 Medication Orders Tubersol 5 tub. unit/0.1 mL intraderma l injection solution 2023 024 Not available 4 12:12:02 famotidine 40 mg tablet 2023 024 [email or web address] [id number], [address] [place], [address], 4 21:40:47 Linzess 145 mcg capsule 2023 025 [facility], [address] [place], [address], 5 10:37:35 Qulipta 60 mg tablet 2023 024 [facility], [address] [place], [address], 4 12:56:53 alprazolam 0.25 mg tablet 2023 025 [facility], [address] [place], [address], 5 10:37:47 Patient TargetsNo targets recorded. Patient InstructionsNo instructions recorded. Reason for Referral Hand Surgeon Referral for Ga nglion cyst of right wrist consult on right wrist cyst. Referring Physician: Lupis Ireland, Internal Medicine, Encounter Date: 04/01/2024 Results Created Date Observation Date Name Description Value Unit Range Abnormal Flag Note LastModifiedBy Organization Detail LastModifiedTime 02/29/20 24 02/29/2024 PPD (raj fied prote in deriv ative ), skin test Result Negati ve Not Available In-Office Order Internal Use Only DO Not Attach Compendium DO Not Attach Compendium, Do Not Delete/merge, [id number] 02/26/2024 11:42:30 04/22/19 25 04/19/2024 US, wrist No observ ation record ed. [facility] [address] [facility], [place], [address], 04/24/2024 13:54:42 04/23/19 25 04/23/2024 XR, hand No observ ation record ed. [email or web address] [facility] [address], [place], [address], 04/23/2024 16:52:00 Result Notes None recorded. Problems Name Problem SNOMED Code Status Onset Date Resolution Date Notes Provider Name and Address Organization Details Recorded Time Body mass index 25-29 - overweight 585491649 Active 2023 KINSEY Leblanc Attn: Cintia thompson,[address] [facility], [place], [address], [place] [facility] 4 14:54:14 Hyperlipide zainab 48686779 Active 2023 KINSEY Leblanc Attn: Cintia thompson,[address] [facility], [place], [address], [place] [facility] 4 12:55:08 Migraine 44091456 Active 2023 KINSEY Leblanc Attn: Cintia thompson,[address] [facility], [place], [address], [place] [facility] 4 12:55:10 Irritable bowel syndrome characteriz ed by constipsean n 090641963 Active 2023 KINSEY Leblanc Attn: Cintia thompson,[address] [place], [address], [place] [facility] 4 12:56:15 Feeling stressed 007785507 Active 2023 KINSEY Leblanc Attn: Cintia thompson,[address] [place], [address], [place] [facility] 4 12:56:24 Long-term drug therapy Active 2023 KINSEY Leblanc Attn: Cintia thompson,[address] [facility], [place], [address], [facility] 4 12:56:40 Ganglion cyst of right wrist 5207419088728 09 Active 2024 KINSEY Leblanc Attn: Cintia thompson,[address] [facility], [place], [address], [facility] 5 08:10:35 Problem Notes None recorded. Procedures Surgical History Date Name Laterality Status Provider Name and Address Organization Details Recorded Time section completed Buzz Morrow MA [place] - [place] 10/25/2023 14:31:43 Imaging Results Imaging Date Name Status LastModified by Organiz ation Details LastModified Time 04/19/2024 US, wrist completed [facility] [address] [facility] [address], [place], [address], 04/24/2024 13:54:42 04/23/2024 XR, hand completed [email or web address] [facility] freddie [address], [place], [address], 04/23/2024 16:52:00 Procedure Notes None recorded. Medical Equipment None Reported. Allergies Allergen ID Allergen Name Allergen Category Reaction Reaction Severity Criticality Documentation Date Start Date Code Code System Note Provider Name and Address Organization Details Recorded Time 358849 phentolam ine mesylate medicatio n Not available Not available Not available 10/25/2023 17377 0 RxNorm Not Available Not Available Not Available 953830 Reglan medicatio n Not available Not available [...] Updated DateTime 4 165.1 cm 25.5 kg/m2 33771.9 2 g 20 /min 100 % 100 % 84 /min 128 mm[Hg] 88 mm[Hg] Buzz Morrow MA [facility] 4 14:33:40 Date Recorded Systolic blood pressure Diastolic blood pressure Systolic blood pressure Diastolic blood pressure Provider Name and Address Organization Details Last Updated DateTime 10/25/2023 120 mm[Hg] 84 mm[Hg] 120 mm[Hg] 80 mm[Hg] KINSEY Leblanc Attn: Accounting ,[address] [place], [address] , [place] - [facility] 4 14:59:11 Date Recorded Body height Body mass index (BMI) Body weight Oxygen saturation Oxygen saturation in Arterial blood by Pulse oximetry Heart rate Systolic blood pressure Diastolic blood pressure Provider Name and Address Organization Details Last Updated DateTime 5 165.1 cm 26.5 kg/m2 12130.1 9 g 100 % 100 % 113 /min 122 mm[Hg] 82 mm[Hg] Buzz Morrow [place] [facility] 10:41:50 Social History Question Answer Notes LastModified by Organizat ion Details LastModified Time Tobacco Smoking Status Never Smoker Buzz Morrow MA null, [place] - [facility] 10/25/2023 14:29:44 Do You Have An Advance [...] not available 10/25/2023 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 Information not available 10/25/2023 Are [...] available 2023 14:29:40 Medical History Condition Response Atrial Fibrillation N High Blood Pressure Y COPD N Anemia N Acid Reflux (GERD) N Cancer N High Cholesterol Y Headaches Y Gynecological History Statement/Question Response Flow Moderate Date [...] Time Influenza, MDCK, quadrivalent, PF 03/04/2021 completed Buzz Morrow [place], [place] [facility] 12/27/2023 13:12:56 COVID-19 vaccine, vector-nr, rS-Ad26, PF, 0.5 mL 06/04/2020 completed DARYL [place] [facility] 12/27/2023 13:12:56 Tdap 06/17/2019 completed DARYL [place] [facility] 12/27/2023 13:12:56 Influenza, split virus, quadrivalent, PF 01/21/2020 completed DARYL [place] [facility] 12/27/2023 13:12:56 Influenza, split virus, trivalent, PF 02/26/2024 completed KINSEY Leblanc Attn: Accounting,[address] [place], [address], [facility] 03/28/2024 21:02:32 Past Encounters Encounter ID Performer Location Encounter Start Date Encounter Closed Date Diagnosis/Indication Diagnosis SNOMED-CT Code Diagnosis ICD10 Code Diagnosis Note [id number] KINSEY Leblanc [facility] [employer] [address] [place] [address] 10/25/2023 14:15:53 10/25/2023 15:35:14 Body mass index 25-29 - overweight 662231643 Z68.25 Being is 25.5 Adult heal th examination 133136191 Z00.01 Annual wellness exam complete Persistent cough 2143091 02 R05.3 Patient reports 4 months of [...] a silent reflux drip and cough. Hyperlipidemia 51869464 E78.5 Patient is stable on rosuvastat in 5 mg daily and updated fasting lipid panel is due Migraine 55851523 G43.90 9 hx of failing: triptans, triptan nasal spray, topamax with side effects severe, and nsaid, and OCPs. ubrelvy works but still having > 14 headaches per month. Trial of qulipta 60mg daily. Long-term drug therapy 125658298 Z79.899 Labs ordered Nausea and vomiting 1693 1999 R11.2 Check amylase lipase, CMP and CBC and refer for ultrasound of the gallbladde r to evaluate nausea and vomiting Irritable bowel syndrome characterized by constipation 494467825 K58.1 Refill Linzess 145 mcg daily which has worked well for the patient in the past Diabetes m ellitus screening 394613483 Z13.1 A1c lab screening due for diabetes risk assessment Thyroid di sorder screening 849026173 Z13.29 Routine thyroid function panel ordered Feeling stressed 2466196 06 Z73.3 Prescripti on for p.r.n. alprazolam 0.25 mg twice daily as needed for breakthrou gh stress and anxiety [id number] KINSEY Leblanc [facility] [employer] - [employer] [address] [employer] [address] 02/26/2024 10:52:05 02/26/2024 15:08:22 Administration of influenza vaccine 49302014 Z23 Tuberculos is screening 164956701 Z11.1 [id number] KINSEY Leblanc [facility] [employer] [address] [place] [id number] 04/01/2024 10:21:37 04/01/2024 11:41:56 Ganglion cyst of right wrist 3722405420 93650 M67.431 Check ultrasound of the right wrist [...] ID Guarantor Name 10/25/2023 1 [place] [id number] Ayde Coronel [id number] Ayde Coronel 02/26/2024 1 [place] [id number] Ayde Coronel [id number] Ayde Coronel 04/01/2024 1 [place] [id number] Ayde Coronel [id number] Ayde Coronel Notes Date Note Type Note Provider Name [...] as-needed basis. KINSEY Leblanc Attn: Accounting,[address] [place], [address], [facility] 11/05/2023 12:57:58 5 text/html Musculoskeletal PainReported bypatient.Location:right [...] main issue. KINSEY Leblanc Attn: Accounting,[address] [place], [address], [place] [facility] 04/08/2024 08:11:29 OBGyn Episode No OBEpisode recorded.
--- OUTSIDE RECORDS SUMMARY | 2024-05-14 13:12 | XMS_ITS | Data Portability ---
Author Organization [facility] [employer], Main Office Address [address] [place] [address] Assessment No assessment recorded. Plan of Treatment Reminders Order Date Submit Date Provider Last Modified By Organization Details Last Modified Time Details Appointments None recorded. Lab TSH + free T4, serum 2022 023 [facility], [address], [place], [address], 3 12:52:29 T3, free, serum or plasma 2022 023 [facility], [address], [place], [address], 3 12:52:34 CBC w/ auto diff 2022 023 [facility], [address], [place], [address], 3 12:52:34 CMP, serum or plasma 2022 023 [facility], [address], [place], [address], 3 12:52:31 urinalysis complete, reflex culture 2022 023 [employer] [facility], [address], [place], [address], 3 12:52:35 vitamin B12 + folate, serum or blood 2022 023 [facility], [address], [place], [address], 3 12:52:37 lipid panel, serum 2022 023 [facility], [address], [place], [address], 3 12:52:30 vitamin D, 25-hydroxy, total, serum 2022 023 [facility], [address], [place], [address], 3 12:52:33 insulin, serum 2022 023 [facility], [address], [place], [address], 3 12:52:37 HbA1c (hemoglobin A1c), blood 2022 023 [facility], [address], [place], [address], 3 12:52:32 Referral None recorded. Procedures None recorded. Surgeries None recorded. Imaging XR, thoracic spine 2022 023 [place] Not available 15:44:43 Medication Orders Ubrelvy 100 mg tablet 2022 023 [place] [id number], [address] [place], [address], 11:46:29 Patient TargetsNo targets recorded. Patient InstructionsNo instructions recorded. Reason for Referral None Reported. Results Created Date Observation Date Name Description Value Unit Range Abnormal Flag Note LastModifiedBy Organization Detail LastModifiedTime 10/12/19 22 10/17/2021 INSUL IN insulin 6.4 uIU/m L normal Refer ence Range < or = 19.6 Risk: Optim al < or = 19.6 Moder ate NA High >19.6 Adult cardi ovasc ular event risk categ ory cut point s (opti mal, moder ate, high) are based on [facility] ostic s popul ation data from 02/22 11. This insul in assay shows stron g cross -reac tivit y for some insul in analo gs (lisp ro, aspar t, and glarg ine) and much lower cross -reac tivit y with other s (dete aurelia, gluli sine) . Not Available [employer] [facility] [address] [address] [place], [address], 10/17/2021 19:17:27 10/12/1910/17/2021 CORTI EDUARDO, TOTAL cortisol, total 14.7 mcg/d L normal Refer ence Range : For 8 a.m.( 7-9 a.m.) Speci men: 4.0-2 2.0 Refer ence Range : For 4 p.m.( 3-5 p.m.) Speci men: 3.0-1 7.0 * Pleas e inter pret above resul ts accor dingl y * Not Available [employer] ([facility]) [address] [place], [address], 10/17/2021 19:17:26 10/12/19 22 10/17/2021 EPSTE IN VELAZQUEZ VIRUS ANTIB JUJU PANEL ebv viral capsid Ag (vca) Ab (IgM) <36.00 U/mL normal U/mL Inter preta tion ---- ----- ----- ---- <36.0 0 Negat yolanda 36.00 -43.9 9 Equiv ocal >43.9 9 Posit yolanda Not Available [employer] ([facility]) [address] [address] [place], [address], 10/17/2021 19:17:25 10/12/1910/17/2021 EPSTE IN VELAZQUEZ VIRUS ANTIB JUJU PANEL ebv viral capsid Ag (vca) Ab (IgG) 284.00 U/mL high U/mL Inter preta tion ---- ----- ----- ---- <18.0 0 Negat yolanda 18.00 -21.9 9 Equiv ocal >21.9 9 Posit yolanda Not Available [address], [address], 10/17/2021 19:17:25 10/12/19 22 10/17/2021 EPSTE IN VELAZQUEZ VIRUS ANTIB JUJU PANEL ebv nuclear Ag (ebna) Ab (IgG) 295.00 U/mL high U/mL Inter preta tion ---- ----- ----- ---- <18.0 0 Negat yolanda 18.00 -21.9 9 Equiv ocal >21.9 9 Posit yolanda Not Available [address], [address], 10/17/2021 19:17:25 10/12/19 22 10/17/2021 EPSTE IN VELAZQUEZ VIRUS ANTIB JUJU PANEL interpretati on: Sugge stive of a past Epste in-Ba rr virus infec tion. In infan ts, a simil ar yamilkate rn may occur as a resul t of passi ve mater nal trans negrito of antib juju. Not Available [address], [address], 10/17/2021 19:17:25 10/12/19 22 10/17/2021 REFLE XIVE URINE CULTU RE reflexive urine culture NO CULTU RE INDIC ATED Not Available [address], [address], 10/17/2021 19:17:25 10/12/19 22 10/17/2021 URINA LYSIS , COMPL ETE W/REF TRUDY TO CULTU RE color yellow yellow normal Not Available [address], [address], 10/17/2021 19:17:24 10/12/19 22 10/17/2021 URINA LYSIS , COMPL ETE W/REF TRUDY TO CULTU RE appearance clear clear normal Not Available [address], [address], 10/17/2021 19:17:24 10/12/19 22 10/17/2021 URINA LYSIS , COMPL ETE W/REF TRUDY TO CULTU RE specific gravity 1.011 1.001- 1.035 normal Not Available [address], [address], 10/17/2021 19:17:24 10/12/19 22 10/17/2021 URINA LYSIS , COMPL ETE W/REF TRUDY TO CULTU RE pH 6.5 5.0-8. 0 normal Not Available [address], [address], 10/17/2021 19:17:24 10/12/19 22 10/17/2021 URINA LYSIS , COMPL ETE W/REF TRUDY TO CULTU RE glucose negati ve negati ve normal Not Available [address], [address], 10/17/2021 19:17:24 10/12/19 22 10/17/2021 URINA LYSIS , COMPL ETE W/REF TRUDY TO CULTU RE bilirubin negati ve negati ve normal Not Available [address], [address], 10/17/2021 19:17:24 10/12/19 22 10/17/2021 URINA LYSIS , COMPL ETE W/REF TRUDY TO CULTU RE ketones negati ve negati ve normal Not Available [address], [address], 10/17/2021 19:17:24 10/12/19 22 10/17/2021 URINA LYSIS , COMPL ETE W/REF TRUDY TO CULTU RE occult blood negati ve negati ve normal Not Available [address], [address], 10/17/2021 19:17:24 10/12/19 22 10/17/2021 URINA LYSIS , COMPL ETE W/REF TRUDY TO CULTU RE protein negati ve negati ve normal Not Available [address], [address], 10/17/2021 19:17:24 10/12/19 22 10/17/2021 URINA LYSIS , COMPL ETE W/REF TRUDY TO CULTU RE nitrite negati ve negati ve normal Not Available [address], [address], 10/17/2021 19:17:24 10/12/19 22 10/17/2021 URINA LYSIS , COMPL ETE W/REF TRUDY TO CULTU RE leukocyte esterase negati ve negati ve normal Not Available [address], [address], 10/17/2021 19:17:24 10/12/19 22 10/17/2021 URINA LYSIS , COMPL ETE W/REF TRUDY TO CULTU RE WBC none seen /hpf < or = 5 normal Not Available [address], [address], 10/17/2021 19:17:24 10/12/19 22 10/17/2021 URINA LYSIS , COMPL ETE W/REF TRUDY TO CULTU RE RBC none seen /hpf < or = 2 normal Not Available [address], [address], 10/17/2021 19:17:24 10/12/19 22 10/17/2021 URINA LYSIS , COMPL ETE W/REF TRUDY TO CULTU RE squamous epithelial cells none seen /hpf < or = 5 normal Not Available [address], [address], 10/17/2021 19:17:24 10/12/19 22 10/17/2021 URINA LYSIS , COMPL ETE W/REF TRUDY TO CULTU RE bacteria none seen /hpf none seen normal Not Available [address], [address], 10/17/2021 19:17:24 10/12/19 22 10/17/2021 URINA LYSIS , COMPL ETE W/REF TRUDY TO CULTU RE hyaline cast none seen /lpf none seen normal Not Available [address], [address], 10/17/2021 19:17:24 10/12/19 22 10/17/2021 CBC (INCL UDES DIFF/ PLT) white blood cell count 5.7 thous and/u L 3.8-10 .8 normal Not Available [address], [address], 10/17/2021 19:17:23 10/12/19 22 10/17/2021 CBC (INCL UDES DIFF/ PLT) red blood cell count 4.73 elbert on/uL 3.80-5 .10 normal Not Available [address], [address], 10/17/2021 19:17:23 10/12/19 22 10/17/2021 CBC (INCL UDES DIFF/ PLT) hemoglobin 14.2 g/dL 11.7-1 5.5 normal Not Available [address], [address], 10/17/2021 19:17:23 10/12/19 22 10/17/2021 CBC (INCL UDES DIFF/ PLT) hematocrit 42.8 % 35.0-4 5.0 normal Not Available [address], [address], 10/17/2021 19:17:23 10/12/19 22 10/17/2021 CBC (INCL UDES DIFF/ PLT) MCV 90.5 fL 80.0-1 00.0 normal Not Available [address], [address], 10/17/2021 19:17:23 10/12/19 22 10/17/2021 CBC (INCL UDES DIFF/ PLT) MCH 30.0 pg 27.0-3 3.0 normal Not Available [address], [address], 10/17/2021 19:17:23 10/12/19 22 10/17/2021 CBC (INCL UDES DIFF/ PLT) MCHC 33.2 g/dL 32.0-3 6.0 normal Not Available [address], [address], 10/17/2021 19:17:23 10/12/19 22 10/17/2021 CBC (INCL UDES DIFF/ PLT) RDW 11.9 % 11.0-1 5.0 normal Not Available [address], [address], 10/17/2021 19:17:23 10/12/19 22 10/17/2021 CBC (INCL UDES DIFF/ PLT) platelet count 271 thous and/u L 140-40 0 normal Not Available [address], [address], 10/17/2021 19:17:23 10/12/19 22 10/17/2021 CBC (INCL UDES DIFF/ PLT) MPV 9.6 fL 7.5-12 .5 normal Not Available [address], [address], 10/17/2021 19:17:23 10/12/19 22 10/17/2021 CBC (INCL UDES DIFF/ PLT) absolute neutrophils 3574 cells /uL 1500-7 800 normal Not Available [address], [address], 10/17/2021 19:17:23 10/12/19 22 10/17/2021 CBC (INCL UDES DIFF/ PLT) absolute lymphocytes 1562 cells /uL 850-39 00 normal Not Available [address], [address], 10/17/2021 19:17:23 10/12/19 22 10/17/2021 CBC (INCL UDES DIFF/ PLT) absolute monocytes 393 cells /uL 200-95 0 normal Not Available [address], [address], 10/17/2021 19:17:23 10/12/19 22 10/17/2021 CBC (INCL UDES DIFF/ PLT) absolute eosinophils 143 cells /uL 15-500 normal Not Available [address], [address], 10/17/2021 19:17:23 10/12/19 22 10/17/2021 CBC (INCL UDES DIFF/ PLT) absolute basophils 29 cells /uL 0-200 normal Not Available [address], [address], 10/17/2021 19:17:23 10/12/19 22 10/17/2021 CBC (INCL UDES DIFF/ PLT) neutrophils 62.7 % normal Not Available [address], [address], 10/17/2021 19:17:23 10/12/19 22 10/17/2021 CBC (INCL UDES DIFF/ PLT) lymphocytes 27.4 % normal Not Available [address], [address], 10/17/2021 19:17:23 10/12/19 22 10/17/2021 CBC (INCL UDES DIFF/ PLT) monocytes 6.9 % normal Not Available [address], [address], 10/17/2021 19:17:23 10/12/19 22 10/17/2021 CBC (INCL UDES DIFF/ PLT) eosinophils 2.5 % normal Not Available [address], [address], 10/17/2021 19:17:23 10/12/19 22 10/17/2021 CBC (INCL UDES DIFF/ PLT) basophils 0.5 % normal Not Available [address], [address], 10/17/2021 19:17:23 10/12/19 22 10/17/2021 THYRO ID PEROX IDASE ANTIB ODIES thyroid peroxidase antibodies 1 IU/mL <9 normal Not Available [address], [address], 10/17/2021 19:17:23 10/12/19 22 10/17/2021 T3 REVER SE, LC/MS /MS T3 reverse, lc/MS/MS 21 NG/dL 8-25 This test was devel oped and its lincoln tical perfo rmanc e coco cteri stics have been deter mined by [facility] kevin Gonzáles . It has not been clear ed or appro santosh by FDA. This assay has been valid ated pursu ant to the CLIA regul ation s and is used for clini elisabeth purpo ses. Not Available [address], [address], 10/17/2021 19:17:22 10/12/19 22 10/17/2021 T3, TOTAL T3, total 105 NG/dL 76-181 normal Not Available [employer] [address], [address], 10/17/2021 19:17:21 10/12/19 22 10/17/2021 T3, FREE T3, free 3.3 pg/mL 2.3-4. 2 normal Not Available [employer] ([facility]) [address] [place], [address], 10/17/2021 19:17:21 10/12/19 22 10/17/2021 T4 (THYR OXINE ), TOTAL T4 (thyroxine), total 8.2 mcg/d L 5.1-11 .9 normal Not Available [facility] [address] [place], [address], 10/17/2021 19:17:20 10/12/19 22 10/17/2021 HEMOG LOBIN A1C hemoglobin A1C 5.0 %_of_ total _HGB <5.7 normal For the purpo se of screclaire francisco for the prese nce of diabe isra: <5.7% Consi stent with the absen ce of diabe isra 5.7-6 .4% Consi stent with incre ased risk for diabe isra (pred iabet es) > or =6.5% Consi stent with diabe isra This assay resul t is consi stent with a decre ased risk of diabe isra. Curre ntly, no conse nsus exist s sheron tolentino use of hemog lobin A1c for diagn osis of diabe isra in child [place]. Accor ding to Ameri can Diabe isra Assoc iatio n (ADA) guide lines , hemog lobin A1c <7.0% repre sents optim al contr ol in non-p regna nt diabe tic patie nts. Diffe rent metri cs may apply to speci fic patie nt popul ation s. Stand ards of Medic al Care in Diabe isra(A DA). Not Available [facility] [address], [place], [address], 10/17/2021 19:17:20 10/12/1910/17/2021 COMPR EHENS YOLANDA METAB OLIC PANEL glucose 97 mg/dL 65-99 normal Fasti ng refer ence inter ann-marie Not Available [facility] [address] [place], [address], 10/17/2021 19:17:19 10/12/19 22 10/17/2021 COMPR EHENS YOLANDA METAB OLIC PANEL urea nitrogen (BUN) 9 mg/dL 7-25 normal Not Available [address], [address], 10/17/2021 19:17:19 10/12/19 22 10/17/2021 COMPR EHENS YOLANDA METAB OLIC PANEL creatinine 0.77 mg/dL 0.50-0 .97 normal Not Available [address], [address], 10/17/2021 19:17:19 10/12/19 22 10/17/2021 COMPR EHENS YOLANDA METAB OLIC PANEL eGFR 101 mL/mi n/1.7 3m2 > or = 60 normal The eGFR is based on the CKD-E PI 2020 equat ion. To calcu late the new eGFR from a previ ous Creat inine or Cysta tin C resul t, go to https ://renee pinedo.rachel rosas/yael flores s/ kdoqi /gfr% 5Fcal culat or Not Available [address], [address], 10/17/2021 19:17:19 10/12/19 22 10/17/2021 COMPR EHENS YOLANDA METAB OLIC PANEL BUN/creatini ne ratio not applic able (calc ) 6-22 Not Available [address], [address], 10/17/2021 19:17:19 10/12/19 22 10/17/2021 COMPR EHENS YOLANDA METAB OLIC PANEL sodium 137 mmol/ L 135-14 6 normal Not Available [address], [address], 10/17/2021 19:17:19 10/12/19 22 10/17/2021 COMPR EHENS YOLANDA METAB OLIC PANEL potassium 4.1 mmol/ L 3.5-5. 3 normal Not Available [address], [address], 10/17/2021 19:17:19 10/12/19 22 10/17/2021 COMPR EHENS YOLANDA METAB OLIC PANEL chloride 102 mmol/ L 98-110 normal Not Available [address], [address], 10/17/2021 19:17:19 10/12/19 22 10/17/2021 COMPR EHENS OYLANDA METAB OLIC PANEL carbon dioxide 31 mmol/ L 20-32 normal Not Available [address], [address], 10/17/2021 19:17:19 10/12/19 22 10/17/2021 COMPR EHENS YOLANDA METAB OLIC PANEL calcium 9.4 mg/dL 8.6-10 .2 normal Not Available [address], [address], 10/17/2021 19:17:19 10/12/19 22 10/17/2021 COMPR EHENS YOLANDA METAB OLIC PANEL protein, total 7.1 g/dL 6.1-8. 1 normal Not Available [address], [address], 10/17/2021 19:17:19 10/12/19 22 10/17/2021 COMPR EHENS YOLANDA METAB OLIC PANEL albumin 4.7 g/dL 3.6-5. 1 normal Not Available [address], [address], 10/17/2021 19:17:19 10/12/19 22 10/17/2021 COMPR EHENS YOLANDA METAB OLIC PANEL globulin 2.4 g/dL_ (calc ) 1.9-3. 7 normal Not Available [address], [address], 10/17/2021 19:17:19 10/12/19 22 10/17/2021 COMPR EHENS YOLANDA METAB OLIC PANEL albumin/glob ulin ratio 2.0 (calc ) 1.0-2. 5 normal Not Available [address], [address], 10/17/2021 19:17:19 10/12/19 22 10/17/2021 COMPR EHENS YOLANDA METAB OLIC PANEL bilirubin, total 0.5 mg/dL 0.2-1. 2 normal Not Available [address], [address], 10/17/2021 19:17:19 10/12/19 22 10/17/2021 COMPR EHENS YOLANDA METAB OLIC PANEL alkaline phosphatase 69 U/L 31-125 normal Not Available [address], [address], 10/17/2021 19:17:19 10/12/19 22 10/17/2021 COMPR EHENS YOLANDA METAB OLIC PANEL AST 20 U/L 10-30 normal Not Available [address], [address], 10/17/2021 19:17:19 10/12/19 22 10/17/2021 COMPR EHENS YOLANDA METAB OLIC PANEL ALT 12 U/L 6-29 normal Not Available [address], [address], 10/17/2021 19:17:19 10/12/19 22 10/17/2021 LIPID PANEL , STAND MAGI cholesterol, total 242 mg/dL <200 high Not Available [address], [address], 10/17/2021 19:17:19 10/12/19 22 10/17/2021 LIPID PANEL , STAND MAGI HDL cholesterol 56 mg/dL > or = 50 normal Not Available [address], [address], 10/17/2021 19:17:19 10/12/19 22 10/17/2021 LIPID PANEL , STAND MAGI triglyceride s 133 mg/dL <150 normal Not Available [facility] [address] [place], [address], 10/17/2021 19:17:19 10/12/19 22 10/17/2021 LIPID PANEL , STAND MAGI LDL-choleste rol 160 mg/dL _(elisabeth c) high Refer ence range : <100 Diaz able range <100 mg/dL for prima ry preve ntion ; <70 mg/dL for patie nts with CHD or diabe tic patie nts with > or = 2 CHD risk facto rs. LDL-C is now calcu lated using the Nehal n-Hop kins calcu james n, which is a valid ated novel metho d provi ding shirin r accur acy than the Fried harvey equat ion in the estim ation of LDL-C . Nehal preston SS et al. SHERRY. 2013; 310(1 9): 2061- 2068 (http ://ed ucati on.Lax.com. com/f aq/FA Q164) Not Available [address], [address], 10/17/2021 19:17:19 10/12/19 22 10/17/2021 LIPID PANEL , STAND MAGI chol/HDLC ratio 4.3 (calc ) <5.0 normal Not Available [facility] [address] [place] [address], [address], 10/17/2021 19:17:19 10/12/19 22 10/17/2021 LIPID PANEL , STAND MAGI non HDL cholesterol 186 mg/dL _(elisabeth c) <130 high For patie nts with diabe isra plus 1 major ASCVD risk facto r, treat ing to a non-H DL-C goal of <100 mg/dL (LDL- C of <70 mg/dL ) is consi dered a thera peuti c optio n. Not Available [address], [address], 10/17/2021 19:17:19 10/12/1910/17/2021 TSH+F REE T4 TSH 1.94 mIU/L normal Refer ence Range > or = 20 Years 0.40- 4.50 Pregn festus Range s First trime ster 0.26- 2.66 Secon d trime ster 0.55- 2.73 Third trime ster 0.43- 2.91 Not Available [address], [address], 10/17/2021 19:17:17 10/12/1910/17/2021 TSH+F REE T4 T4, free 1.2 NG/dL 0.8-1. 8 normal Not Available [address], [address], 10/17/2021 19:17:17 10/01/1910/01/2022 TSH+F REE T4 TSH 1.48 mIU/L normal Refer ence Range > or = 20 Years 0.40- 4.50 Pregn festus Range s First trime ster 0.26- 2.66 Secon d trime ster 0.55- 2.73 Third trime ster 0.43- 2.91 Not Available [address], [address], 10/01/2022 12:52:29 10/01/19 23 10/01/2022 TSH+F REE T4 T4, free 1.1 NG/dL 0.8-1. 8 normal Not Available [facility] [address], [address], 10/01/2022 12:52:29 10/01/19 23 10/01/2022 LIPID PANEL WITH RATIO S cholesterol, total 271 mg/dL <200 high Not Available [address], [address], 10/01/2022 12:52:30 10/01/19 23 10/01/2022 LIPID PANEL WITH RATIO S HDL cholesterol 54 mg/dL > or = 50 normal Not Available [facility] [address] [place] [address], [address], 10/01/2022 12:52:30 10/01/19 23 10/01/2022 LIPID PANEL WITH RATIO S triglyceride s 173 mg/dL <150 high Not Available [address], [address], 10/01/2022 12:52:30 10/01/1910/01/2022 LIPID PANEL WITH RATIO S LDL-choleste rol 184 mg/dL _(elisabeth c) high Refer ence range : <100 Diaz able range <100 mg/dL for prima ry preve ntion ; <70 mg/dL for patie nts with CHD or diabe tic patie nts with > or = 2 CHD risk facto rs. LDL-C is now calcu lated using the Ne[employer] kins calcu latchristina n, which is a valid ated novel metho d provi ding shirin r accur acy than the Fried harvey equat ion in the estim ation of LDL-C . Nehal preston SS et al. SHERRY. 2013; 310(1 9): 2061- 2068 (http ://ed ucati on.[employer]. com/f aq/FA Q164) Not Available [address], [address], 10/01/2022 12:52:30 10/01/1910/01/2022 LIPID PANEL WITH RATIO S chol/HDLC ratio 5.0 (calc ) <5.0 high Not Available [address], [address], 10/01/2022 12:52:30 10/01/19 23 10/01/2022 LIPID PANEL WITH RATIO S LDL/HDL ratio 3.4 (calc ) Below avera ge Risk: <2.34 [place] ge Risk: 2.35- 4.12 Moder ate Risk: 4.13- 5.56 High Risk: >5.57 Not Available [address], [address], 10/01/2022 12:52:30 10/01/1910/01/2022 LIPID PANEL WITH RATIO S non HDL cholesterol 217 mg/dL _(elisabeth c) <130 high For patie nts with diabe isra plus 1 major ASCVD risk facto r, treat ing to a non-H DL-C goal of <100 mg/dL (LDL- C of <70 mg/dL ) is consi grey a pam peuti c optio n. Not Available [address], [address], 10/01/2022 12:52:30 10/01/19 23 10/01/2022 COMPR EHENS YOLANDA METAB OLIC PANEL glucose 98 mg/dL 65-99 normal Fasti ng refer ence inter ann-marie Not Available [address] [place], [address], 10/01/2022 12:52:31 10/01/1910/01/2022 COMPR EHENS YOLANDA METAB OLIC PANEL urea nitrogen (BUN) 9 mg/dL 7-25 normal Not Available [address], [address], 10/01/2022 12:52:31 10/01/19 23 10/01/2022 COMPR EHENS YOLANDA METAB OLIC PANEL creatinine 0.81 mg/dL 0.50-0 .97 normal Not Available [address], [address], 10/01/2022 12:52:31 10/01/19 23 10/01/2022 COMPR EHENS YOLANDA METAB OLIC PANEL eGFR 95 mL/mi n/1.7 3m2 > or = 60 normal The eGFR is based on the CKD-E PI 2020 equat ion. To calcu late the new eGFR from a previ ous Creat inine or Cysta tin C resul t, go to https ://renee w.martin pinedo.o alison/yael flores s/ kdoqi /gfr% 5Fcal culat or Not Available [address], [address], 10/01/2022 12:52:31 10/01/19 23 10/01/2022 COMPR EHENS YOLANDA METAB OLIC PANEL BUN/creatini ne ratio NOT APPLIC ABLE (calc ) 6-22 Not Available [address], [address], 10/01/2022 12:52:31 10/01/19 23 10/01/2022 COMPR EHENS YOLANDA METAB OLIC PANEL sodium 136 mmol/ L 135-14 6 normal Not Available [address], [address], 10/01/2022 12:52:31 10/01/19 23 10/01/2022 COMPR EHENS YOLANDA METAB OLIC PANEL potassium 4.7 mmol/ L 3.5-5. 3 normal Not Available [address], [address], 10/01/2022 12:52:31 10/01/19 23 10/01/2022 COMPR EHENS YOLANDA METAB OLIC PANEL chloride 102 mmol/ L 98-110 normal Not Available [address], [address], 10/01/2022 12:52:31 10/01/19 23 10/01/2022 COMPR EHENS YOLANDA METAB OLIC PANEL carbon dioxide 29 mmol/ L 20-32 normal Not Available [address], [address], 10/01/2022 12:52:31 10/01/19 23 10/01/2022 COMPR EHENS YOLANDA METAB OLIC PANEL calcium 10.0 mg/dL 8.6-10 .2 normal Not Available [facility] [address], [place], [address], 10/01/2022 12:52:31 10/01/19 23 10/01/2022 COMPR EHENS YOLANDA METAB OLIC PANEL protein, total 7.4 g/dL 6.1-8. 1 normal Not Available [address], [address], 10/01/2022 12:52:31 10/01/19 23 10/01/2022 COMPR EHENS YOLANDA METAB OLIC PANEL albumin 4.9 g/dL 3.6-5. 1 normal Not Available [address], [address], 10/01/2022 12:52:31 10/01/19 23 10/01/2022 COMPR EHENS YOLANDA METAB OLIC PANEL globulin 2.5 g/dL_ (calc ) 1.9-3. 7 normal Not Available [address], [address], 10/01/2022 12:52:31 10/01/19 23 10/01/2022 COMPR EHENS YOLANDA METAB OLIC PANEL albumin/glob ulin ratio 2.0 (calc ) 1.0-2. 5 normal Not Available [address], [address], 10/01/2022 12:52:31 10/01/19 23 10/01/2022 COMPR EHENS YOLANDA METAB OLIC PANEL bilirubin, total 0.6 mg/dL 0.2-1. 2 normal Not Available [address], [address], 10/01/2022 12:52:31 10/01/19 23 10/01/2022 COMPR EHENS YOLANDA METAB OLIC PANEL alkaline phosphatase 73 U/L 31-125 normal Not Available [facility] [employer] [address], [address], 10/01/2022 12:52:31 10/01/19 23 10/01/2022 COMPR EHENS YOLANDA METAB OLIC PANEL AST 24 U/L 10-30 normal Not Available [facility] [address] [place], [address], 10/01/2022 12:52:31 10/01/19 23 10/01/2022 COMPR EHENS YOLANDA METAB OLIC PANEL ALT 18 U/L 6-29 normal Not Available [facility] [address] [place], [address], 10/01/2022 12:52:31 10/01/19 23 10/01/2022 HEMOG LOBIN A1C hemoglobin A1C 5.3 %_of_ total _HGB <5.7 normal For the purpo se of scree maryam for the prese nce of diabe isra: <5.7% Consi stent with the absen ce of diabe isra 5.7-6 .4% Consi stent with incre ased risk for diabe isra (pred iabet es) > or =6.5% Consi stent with diabe isra This assay resul t is consi stent with a decre ased risk of diabe isra. Curre ntly, no conse nsus exist s sheron tolentino use of hemog lobin A1c for diagn osis of diabe isra in child [place]. Accor ding to [employer] Diabe isra [employer] n (ADA) guide lines , hemog lobin A1c <7.0% repre sents optim al contr ol in non-p regna nt diabe tic patie nts. Diffe rent metri cs may apply to speci fic patie nt popul ation s. Stand ards of Medic al Care in Diabe isra(A DA). Not Available [facility] [address] [address] [place], [address], 10/01/2022 12:52:32 10/01/19 23 10/01/2022 VITAM IN D,25- [place],TO GHISLAINE,I A vitamin D,25-oh,tota l,ia 26 NG/mL 30-100 low Vitam in D Statu s 25-OH Vitam in D: Defic iency : <20 ng/mL Insuf ficie ncy: 20 - 29 ng/mL Optim al: > or = 30 ng/mL For 25-OH Vitam in D testi ng on patie nts on D2-deshpande pplem entat ion and patie nts for whom quant itati on of D2 and D3 fract ions is requi red, the [facility](TM ) 25-OH VIT D, (D2,D 3), LC/MS /MS is recom harsh d: order code 04520 (susan ents >2yrs ). See Note 1 Note 1 For addit ional infor jan reece refer to http: //[facility] les Alvarez gnost ics.c om/fa q/FAQ 199 (This link is being provi ded for infor abraham castro/ gilmar wilkerson purpo ses only. ) Not Available [address], [address], 10/01/2022 12:52:33 10/01/19 23 10/01/2022 T3, FREE T3, free 3.3 pg/mL 2.3-4. 2 normal Not Available [facility] [address], [address], 10/01/2022 12:52:33 10/01/1910/01/2022 CBC (INCL UDES DIFF/ PLT) white blood cell count 5.3 thous and/u L 3.8-10 .8 normal Not Available [employer] ([facility]) [address], [address], 10/01/2022 12:52:34 10/01/19 23 10/01/2022 CBC (INCL UDES DIFF/ PLT) red blood cell count 5.08 elbert on/uL 3.80-5 .10 normal Not Available [employer] ([facility]) [address], [address], 10/01/2022 12:52:34 07/28/20 23 10/01/2022 CBC (INCL UDES DIFF/ PLT) hemoglobin 15.1 g/dL 11.7-1 5.5 normal Not Available [address], [address], 10/01/2022 12:52:34 10/01/19 23 10/01/2022 CBC (INCL UDES DIFF/ PLT) hematocrit 45.5 % 35.0-4 5.0 high Not Available [address], [address], 10/01/2022 12:52:34 10/01/19 23 10/01/2022 CBC (INCL UDES DIFF/ PLT) MCV 89.6 fL 80.0-1 00.0 normal Not Available [address], [address], 10/01/2022 12:52:34 10/01/19 23 10/01/2022 CBC (INCL UDES DIFF/ PLT) MCH 29.7 pg 27.0-3 3.0 normal Not Available [address], [address], 10/01/2022 12:52:34 10/01/19 23 10/01/2022 CBC (INCL UDES DIFF/ PLT) MCHC 33.2 g/dL 32.0-3 6.0 normal Not Available [address], [address], 10/01/2022 12:52:34 10/01/19 23 10/01/2022 CBC (INCL UDES DIFF/ PLT) RDW 13.0 % 11.0-1 5.0 normal Not Available [address], [address], 10/01/2022 12:52:34 10/01/19 23 10/01/2022 CBC (INCL UDES DIFF/ PLT) platelet count 316 thous and/u L 140-40 0 normal Not Available [facility] [address] [place] [address] [place], [address], 10/01/2022 12:52:34 10/01/19 23 10/01/2022 CBC (INCL UDES DIFF/ PLT) MPV 10.2 fL 7.5-12 .5 normal Not Available [address], [address], 10/01/2022 12:52:34 10/01/19 23 10/01/2022 CBC (INCL UDES DIFF/ PLT) absolute neutrophils 3360 cells /uL 1500-7 800 normal Not Available [address], [address], 10/01/2022 12:52:34 10/01/19 23 10/01/2022 CBC (INCL UDES DIFF/ PLT) absolute lymphocytes 1526 cells /uL 850-39 00 normal Not Available [address], [address], 10/01/2022 12:52:34 10/01/19 23 10/01/2022 CBC (INCL UDES DIFF/ PLT) absolute monocytes 360 cells /uL 200-95 0 normal Not Available [address], [address], 10/01/2022 12:52:34 10/01/19 23 10/01/2022 CBC (INCL UDES DIFF/ PLT) absolute eosinophils 32 cells /uL 15-500 normal Not Available [facility] [address], [address], 10/01/2022 12:52:34 10/01/19 23 10/01/2022 CBC (INCL UDES DIFF/ PLT) absolute basophils 21 cells /uL 0-200 normal Not Available [facility] [address] [place], [address], 10/01/2022 12:52:34 10/01/19 23 10/01/2022 CBC (INCL UDES DIFF/ PLT) neutrophils 63.4 % normal Not Available [address], [address], 10/01/2022 12:52:34 10/01/19 23 10/01/2022 CBC (INCL UDES DIFF/ PLT) lymphocytes 28.8 % normal Not Available [address], [address], 10/01/2022 12:52:34 10/01/19 23 10/01/2022 CBC (INCL UDES DIFF/ PLT) monocytes 6.8 % normal Not Available [address], [address], 10/01/2022 12:52:34 10/01/19 23 10/01/2022 CBC (INCL UDES DIFF/ PLT) eosinophils 0.6 % normal Not Available [address], [address], 10/01/2022 12:52:34 10/01/19 23 10/01/2022 CBC (INCL UDES DIFF/ PLT) basophils 0.4 % normal Not Available [address], [address], 10/01/2022 12:52:34 10/01/19 23 10/01/2022 URINA LYSIS , COMPL ETE W/REF TRUDY TO CULTU RE color YELLOW yellow normal Not Available [address], [address], 10/01/2022 12:52:35 10/01/19 23 10/01/2022 URINA LYSIS , COMPL ETE W/REF TRUDY TO CULTU RE appearance CLEAR clear normal Not Available [facility] [address], [address], 10/01/2022 12:52:35 10/01/19 23 10/01/2022 URINA LYSIS , COMPL ETE W/REF TRUDY TO CULTU RE specific gravity 1.017 1.001- 1.035 normal Not Available [address], [address], 10/01/2022 12:52:35 10/01/19 23 10/01/2022 URINA LYSIS , COMPL ETE W/REF TRUDY TO CULTU RE pH 7.0 5.0-8. 0 normal Not Available [address], [address], 10/01/2022 12:52:35 10/01/19 23 10/01/2022 URINA LYSIS , COMPL ETE W/REF TRUDY TO CULTU RE glucose NEGATI VE negati ve normal Not Available [address], [address], 10/01/2022 12:52:35 10/01/19 23 10/01/2022 URINA LYSIS , COMPL ETE W/REF TRUDY TO CULTU RE bilirubin NEGATI VE negati ve normal Not Available [address], [address], 10/01/2022 12:52:35 10/01/19 23 10/01/2022 URINA LYSIS , COMPL ETE W/REF TRUDY TO CULTU RE ketones NEGATI VE negati ve normal Not Available [address], [address], 10/01/2022 12:52:35 10/01/19 23 10/01/2022 URINA LYSIS , COMPL ETE W/REF TRUDY TO CULTU RE occult blood NEGATI VE negati ve normal Not Available [address], [address], 10/01/2022 12:52:35 10/01/19 23 10/01/2022 URINA LYSIS , COMPL ETE W/REF TRUDY TO CULTU RE protein NEGATI VE negati ve normal Not Available [address] [place], [address], 10/01/2022 12:52:35 10/01/19 23 10/01/2022 URINA LYSIS , COMPL ETE W/REF TRUDY TO CULTU RE nitrite NEGATI VE negati ve normal Not Available [address] [address] [place], [address], 10/01/2022 12:52:35 10/01/19 23 10/01/2022 URINA LYSIS , COMPL ETE W/REF TRUDY TO CULTU RE leukocyte esterase NEGATI VE negati ve normal Not Available [address], [address], 10/01/2022 12:52:35 10/01/19 23 10/01/2022 URINA LYSIS , COMPL ETE W/REF TRUDY TO CULTU RE WBC NONE SEEN /hpf < or = 5 normal Not Available [address] [address] [place], [address], 10/01/2022 12:52:35 10/01/19 23 10/01/2022 URINA LYSIS , COMPL ETE W/REF TRUDY TO CULTU RE RBC NONE SEEN /hpf < or = 2 normal Not Available [address] [address] [place], [address], 10/01/2022 12:52:35 10/01/19 23 10/01/2022 URINA LYSIS , COMPL ETE W/REF TRUDY TO CULTU RE squamous epithelial cells 0-5 /hpf < or = 5 Not Available [address] [address] [place], [address], 10/01/2022 12:52:35 10/01/19 23 10/01/2022 URINA LYSIS , COMPL ETE W/REF TRUDY TO CULTU RE bacteria NONE SEEN /hpf none seen normal Not Available [address] [address] [place], [address], 10/01/2022 12:52:35 10/01/19 23 10/01/2022 URINA LYSIS , COMPL ETE W/REF TRUDY TO CULTU RE hyaline cast NONE SEEN /lpf none seen normal Not Available [address], [address], 10/01/2022 12:52:35 10/01/19 23 10/01/2022 URINA LYSIS , COMPL ETE W/REF TRUDY TO CULTU RE note This urine was lincoln zed for the prese nce of WBC, RBC, bacte nerissa, casts , and other forme d eleme nts. Only those eleme nts seen were repor yen. Not Available [address], [address], 10/01/2022 12:52:35 10/01/19 23 10/01/2022 REFLE XIVE URINE CULTU RE reflexive urine culture NO CULTU RE INDIC ATED Not Available [address], [address], 10/01/2022 12:52:36 10/01/19 23 10/01/2022 VITAM IN B12/F OLATE , SERUM PANEL vitamin B12 518 pg/mL 200-11 00 normal Not Available [address], [address], 10/01/2022 12:52:37 10/01/19 23 10/01/2022 VITAM IN B12/F OLATE , SERUM PANEL folate, serum 12.4 NG/mL normal Refer ence Range Low: <3.4 Borde rline : 3.4-5 .4 María l: >5.4 Not Available [address], [address], 10/01/2022 12:52:37 10/01/19 23 10/01/2022 INSUL IN insulin 7.5 uIU/m L normal Refer ence Range < or = 18.4 Risk: Optim al < or = 18.4 Moder ate NA High >18.4 Adult cardi ovasc ular event risk categ ory cut point s (opti mal, moder ate, high) are based on Insul in Refer ence Inter ann-marie studi es [facility] in 2021. Not Available [employer] [facility] [address] [address], [place], [address], 10/01/2022 12:52:37 04/21/19 23 04/21/2022 XR, chest , 2 view No observ ation record ed. [id number] [facility] [address], [place], [address], 05/04/2022 17:45:32 09/22/1909/21/2022 XR, thora cic spine No observ ation record ed. [email or web address] [facility] [address] [place], [address], 10/06/2022 14:04:50 Result Notes None recorded. Problems Name Problem SNOMED Code Status Onset Date Resolution Date Notes Provider Name and Address Organization Details Recorded Time Acute bronchitis 37295531 Active 2022 Not Available [facility] 3 17:44:06 Abnormal weight gain 244529138 Active Not Available [facility] 3 17:44:06 Body mass index 25-29 - overweight 562128295 Active Not Available [facility] 3 17:44:06 Liver enzymes outside reference range 162898156 Active Not Available [facility] 3 17:44:06 Chronic constipation 491722417 Active Not Available [facility] 3 17:44:06 Poor concentration 92269800 Active Not Available [facility] 3 17:44:06 Vitamin D deficiency 49292977 Active Not Available [facility] 3 17:44:06 Multiple joint pain 40689409 Active Not Available [facility] 3 17:44:06 Migraine 55806749 Active 2021 Not Available [facility] 3 17:44:06 Postviral cough 824101339 Active 2022 Not Available [facility] 3 17:44:06 Cough 50759162 Active 2022 Not Available [facility] 3 17:44:06 Hyperlipidemi a 22285977 Active 2021 Not Available [facility] 3 17:44:06 Migraine without aura 24257156 Active Not Available [facility] 3 17:44:06 Muscle fatigue 06147118 Active Not Available [facility] 3 17:44:07 Hyperinsulini sm 36839825 Active 2021 Not Available [facility] 3 17:44:07 COVID-19 025269217 Active 2021 Not Available [facility] 3 17:44:07 Fatigue 25558881 Active Not Available [facility] 3 17:44:07 Weight gain 1968957 Active 2021 Not Available [facility] 3 17:44:07 Herpes zoster 9025787 Active 2022 KINSEY Leblanc [address] [place] [address], [place], [address] , [employer] 3 10:59:19 Thoracic back pain 842932293 Active 2022 KINSEY Leblanc [address], [address], [place], [address] , [employer] 3 11:45:30 Mixed hyperlipidemi a 354022648 Active 2022 KINSEY Leblanc [address] [facility] [address], [place], [address] , [employer] 3 12:57:13 Problem Notes None recorded. 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, [place], [address], 05/04/2022 17:45:32 09/21/2022 XR, thoracic spine completed [email or web address] [facility] [address] [place], [address], 10/06/2022 14:04:50 Procedure Notes None recorded. Medical Equipment None Reported. Allergies Allergen ID Allergen Name Allergen Category Reaction Reaction Severity Criticality Documentation Date Start Date Code Code System Note Provider Name and Address Organization Details Recorded Time 97515 Reglan medicatio n itching mild Not available 05/04/2022 9230 RxNorm Not Available [facility] 17:45:27 Medications Name Sig Start Date Stop Date Status Note LastModified by Organization Details LastModified Time cyclobenz aprine 10 mg tablet PRN active Not Available Not Available No t Available amoxicill in 500 mg capsule 04/07 completed Not Available Not Available Not Available dicloxaci llin 500 mg capsule 10/31 completed Not Available Not Available Not Available methocarb adilia 500 mg tablet 11/15 completed Not Available Not Available Not Available sulfasala zine 500 mg tablet TAKE 3 TABLETS BY MOUTH TWICE DAILY 04/07 completed Not Available Not Available Not Available cetirizin e 10 mg tablet TAKE 1 TABLET BY MOUTH EVERY 12 HOURS FOR 14 DAYS 09/08 completed Not Available Not Available Not Available ibuprofen 800 mg tablet TAKE 1 TABLET (800 MG TOTAL) BY MOUTH ONCE FOR 1 DOSE TAKE ONE TABLET 30 MIN PRIOR TO PROCEDUR E 04/21 completed Not Available Not Available Not Available valacyclo vir 1 gram tablet TAKE 1 TABLET BY MOUTH EVERY 8 HOURS 09/08 completed Not Available Not Available Not Available hydrocodo ne 5 mg-acetam inophen 325 mg tablet TK 1 T PO Q 4 TO 6 H PRN P 04/07 completed Not Available Not Available Not Available ondansetr on HCl 4 mg tablet 10/31 completed Not Available Not Available Not Available prednison e 20 mg tablet PLEASE SEE ATTACHED FOR DETAILED DIRECTIO NS 09/08 completed Not Available Not Available Not Available sulfasala zine 500 mg tablet,de layed release 04/07 completed Not Available Not Available Not Available Zithromax Z-Anton 250 mg tablet TAKE 2 TABLETS (500 MG) BY ORAL ROUTE ONCE DAILY FOR 1 DAY THEN 1 TABLET (250 MG) BY ORAL ROUTE ONCE DAILY FOR 4 DAYS 09/07 completed Not Available Not Available Not Available clindamyc in HCl 150 mg capsule active Not Available Not Available Not Available topiramat e 25 mg tablet 09/09 completed Not Available Not Available Not Available phentermi ne 37.5 mg tablet TAKE 1 TABLET BY MOUTH EVERY DAY 04/21 completed Not Available Not Available Not Available prochlorp erazine maleate 10 mg tablet 10/31 completed Not Available Not Available Not Available tramadol 50 mg tablet 10/31 completed Not Available Not Available Not Available ketorolac 10 mg tablet 11/15 completed Not Available Not Available Not Available estradiol 1 mg tablet 09/09 completed Not Available Not Available Not Available nifedipin e ER 60 mg tablet,ex tended release 24 hr 10/31 completed Not Available Not Available Not Available tamsulosi n 0.4 mg capsule 10/31 completed Not Available Not Available Not Available betametha sone valerate 0.1 % topical cream 10/31 completed Not Available Not Available Not Available rizatript an 10 mg disintegr ating tablet DIS 1 T ON THE TONGUE AOS OF MIGRAINE . MAY REPEAT AFTER 2 H NEEDED. MAX OF 2 TS IN 24 H 11/15 completed Not Available Not Available Not Available doxycycli ne monohydra te 100 mg capsule TAKE 1 CAPSULE BY MOUTH IN THE MORNING AND 2 CAPSULES AT NIGHT BEFORE PROCEDUR E 04/21 completed Not Available Not Available Not Available triamcino lone acetonide 0.1 % topical ointment 10/31 completed Not Available Not Available Not Available gabapenti n 300 mg capsule 10/31 completed Not Available Not Available Not Available lorazepam 1 mg tablet TAKE 1 TABLET BY MOUTH FOR ONE DOSE 30 MINUTES PRIOR TO PROCEDUR E 04/21 completed Not Available Not Available Not Available hydroxych loroquine 200 mg tablet TAKE 1 TABLET BY MOUTH TWICE DAILY 04/21 completed Not Available Not Available Not Available ibuprofen 600 mg tablet 10/31 completed Not Available Not Available Not Available methylpre dnisolone 4 mg tablets in a dose pack TAKE 6 TABLETS ON DAY 1 DIRECTED ON PACKAGE AND DECREASE BY 1 TAB EACH DAY FOR A TOTAL OF 6 DAYS 09/07 completed Not Available Not Available Not Available hydrocodo ne 10 mg-chlorp heniramin e 8 mg/5 mL oral susp extend.re l 12hr TAKE 5 ML BY MOUTH EVERY 12 HOURS 09/08 completed Not Available Not Available Not Available albuterol sulfate HFA 90 mcg/actua tion aerosol inhaler INHALE 2 PUFFS EVERY 4 HOURS BY INHALATI ON ROUTE NEEDED 09/08 completed Not Available Not Available Not Available SSD 1 % topical cream 10/31 completed Not Available Not Available Not Available Vitamin D2 1,250 mcg (50,000 unit) capsule TK ONE C PO EVERY WEEK FOR 8 WEEKS THEN MONTHLY AFTER 09/09 completed Not Available Not Available Not Available ondansetr on 4 mg disintegr ating tablet TAKE 1 TABLET BY MOUTH EVERY 8 HOURS NEEDED FOR NAUSEA AND VOMITING active Not Available Not Available No t Available cefdinir 300 mg capsule Take 1 capsule every 12 hours by oral route. 09/07 completed Not Available Not Available Not Available naproxen 500 mg tablet TAKE 1 TABLET BY MOUTH TWICE DAILY 09/08 completed Not Available Not Available Not Available amoxicill in 875 mg-potass ium clavulana te 125 mg tablet 04/21 completed Not Available Not Available Not Available oxycodone 5 mg tablet TAKE 1 TABLET BY MOUTH 30 MIN PRIOR TO PROCEDUR E 04/21 completed Not Available Not Available Not Available NuvaRing 0.12 mg-0.015 mg/24 hr vaginal INSERT 1 RING VAGINALL Y FOR 3 WEEKS THEN REMOVE FOR 1 WEEK 11/15 completed Not Available Not Available Not Available rosuvasta tin 5 mg tablet TAKE 1 TABLET BY MOUTH EVERYDAY AT BEDTIME active Not Available Not Available No t Available 03/25 (28) 1 mg-20 mcg (21)/75 mg (7) tablet TAKE 1 TABLET BY MOUTH EVERY DAY 09/08 completed Not Available Not Available Not Available nitrofura ntoin monohydra te/macroc rystals 100 mg capsule 10/31 completed Not Available Not Available Not Available metronida zole 1 % topical gel 04/07 completed Not Available Not Available Not Available chlorhexi dine gluconate 0.12 % mouthwash 04/07 completed Not Available Not Available Not Available Amitiza 24 mcg capsule Take 1 capsule twice a day by oral route. 09/09 completed samples given. Not Available Not Available Not Available BD Ultra-Fin e Nadine Pen Needle 32 gauge x active Not Available Not Available Not Available 28 mg iron-800 mcg tablet TK 1 T PO Q 11/15 completed Not Available Not Available Not Available Linzess 290 mcg capsule Take 1 capsule every day by oral route. active Not Available Not Available No t Available Prodrin 65 mg-20 mg-325 mg tablet TK 1 T EVERY 6-8 HOURS BY MOUTH NEEDED 09/09 completed Not Available Not Available Not Available Contrave 8 mg-90 mg tablet,ex tended release week 1: one tab po daily in AMweek 2: one tab po bidweek 3: two tabs po AM and one tab po PMweek 4 and thereaft er: two tabs po bid 2022 active Not Available Not Available Not Avai lable Ubrelvy 100 mg tablet TAKE 1 TABLET BY MOUTH AT ONSET OF MIGRAINE . MAY REPEAT IN 2 HOURS NEEDED. MAX 200 MG / 24 HOURS active Not Available Not Available No t Available Wegovy 0.25 mg/0.5 mL subcutane ous pen injector Inject by subcutan eous route for 28 days. active Not Available Not Available No t Available Paxlovid 300 mg (150 mg x 2)-100 mg tablets in a dose pack TK 2 NIRMATRE LVIR TS AND 1 RITONAVI R T TOGETHER PO BID FOR 5 DAYS TWICE DAILY FOR 5 DAYS 04/21 completed Not Available Not Available Not Available Vitals Date Recorded Body mass index (BMI) Body height Oxygen saturation Oxygen saturation in Arterial blood by Pulse oximetry Heart rate Respiratory rate Body temperature Body weight Systolic blood pressure Diastolic blood pressure Systolic blood pressure Diastolic blood pressure Provider Name and Address Organization Details Last Updated DateTime 2 27.7 kg/m2 164.47 cm 96 % 96 % 111 /min 16 /min 98.3 [degF] 07001.4 6 g 122 mm[Hg] 80 mm[Hg] 110 mm[Hg] 80 mm[Hg] Not Available [facility] 3 17:43:36 Date Recorded Body mass index (BMI) Body height Oxygen saturation Oxygen saturation in Arterial blood by Pulse oximetry Heart rate Respiratory rate Body temperature Body weight Provider Name and Address Organization Details Last Updated DateTime 3 30.2 kg/m2 164.47 cm 99 % 99 % 90 /min 16 /min 97.8 [degF] 41651.6 3 g Not Available [facility] 3 17:43:39 Date Recorded Body height Body mass index (BMI) Body weight Body temperature Heart rate Oxygen saturation Oxygen saturation in Arterial blood by Pulse oximetry Systolic blood pressure Diastolic blood pressure Provider Name and Address Organization Details Last Updated DateTime 3 164.47 cm 29.2 kg/m2 85361.0 7 g 97.8 [degF] 109 /min 98 % 98 % 122 mm[Hg] 78 mm[Hg] Cassia Brody RN [place] [facility] [place] [employer] 3 11:18:05 Social History Question Answer Notes LastModified by Organizat ion Details LastModified Time Tobacco Smoking Status Never Smoker Not Available [facility] 05/04/2022 17:42:49 Do You Have An Advance Directive? No [id number] Information not available 05/04/2022 What Is Your Level Of Alcohol Consumption? Occasional [id number] Information not available 05/04/2022 What Is Your Level Of Caffeine Consumption? Occasional [id number] Information not available 05/04/2022 In The 14 Days Before Symptom Onset, Have You Had Close Contact With A Laboratory-confirm ed COVID-19 While That Case Was Ill? No [id number] Information not available 05/04/2022 In The 14 Days Before Symptom Onset, Have You Had Close Contact With A Person Who Is Under Investigation For COVID-19 While That Person Was Ill? No [id number] Information not available 05/04/2022 What Type Of Diet Are You Following? 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 No [id number] Information not available 05/04/2022 Are There Any Guns Present In Your Home? Yes [id number] Information not available 05/04/2022 Do You Have A Medical Power Of Stage Set Up Worker? No [id number] 6066 Information not available 05/04/2022 What Is Your Relationship Status? Single [id number].[id number] Information not available 05/04/2022 Do You Use Your Seat Belt Or Car Seat Routinely? Yes [id number] Information not available 05/04/2022 Do You Have Smoke And Carbon Monoxide Detectors In Your Home? Yes [id number].[id number] Information not available 05/04/2022 Do You Use Any Illicit Or Recreational Drugs? No [id number] 1505 Information not available 05/04/2022 Do You Use Sunscreen Routinely? Yes [id number] Information not available 05/04/2022 Have You Recently Traveled Abroad? No [id number].[id number] 9133 Information not available 05/04/2022 Do You Have Any Dietary Restrictions? No [id number].[id number] Information not available 05/04/2022 Do You Or Have You Ever Used Any Other Forms Of Tobacco Or Nicotine? No [id number].[id number] 0336 Information not available 05/04/2022 Sex: Unknown Functional Status Question Answer Note LastModified by Organizat ion Details LastModified Time What is your exercise level? Moderate [id number] Information not available 05/04/2022 Mental Status None recorded. Family History Relationship Description Onset Age of this Age Resolved Age Notes LastModified by Organization Details LastModified Time Mother Hypertensive disorder [id number] Not available 05/04/2022 17:43:00 Paternal Uncle Antiphosphol ipid syndrome [id number] Not available 05/04/2022 17:43:00 Paternal Uncle Lupus erythematosu s MIGRATION.436 [id number] Not available 05/04/2022 17:43:00 Maternal Grandmother Rheumatoid arthritis MIGRATION.630 [id number] Not available 05/04/2022 17:43:00 Maternal Grandmother Alzheimer's disease MIGRATION.639 [id number] Not available 05/04/2022 17:43:00 Maternal Grandmother Malignant tumor of thyroid gland MIGRATION.970 [id number] Not available 05/04/2022 17:43:00 Maternal Grandfather Diabetes mellitus MIGRATION.310 [id number] Not available 05/04/2022 17:43:00 Maternal Grandfather Heart disease MIGRATION.965 [id number] Not available 05/04/2022 17:43:00 Maternal Grandfather Malignant tumor of colon MIGRATION.602 [id number] Not available 05/04/2022 17:43:00 Paternal Grandfather Peripheral arterial occlusive disease MIGRATION.633 [id number] Not available 05/04/2022 17:43:00 Paternal Grandfather Myocardial infarction MIGRATION.931 [id number] Not available 05/04/2022 17:43:00 Maternal Aunt Multiple sclerosis MIGRATION.715 [id number] Not available 05/04/2022 17:43:00 Unspecified Relation Hyperlipidem ia [id number].389 [id number] Not available 05/04/2022 17:43:00 Medical History Condition Response ULCERS Y HEADACHES/MIGRAINES Y DIZZINESS Y SKIN PROBLEMS Y BACK / NECK PROBLEMS Y Gynecological History Statement/Question Response Date of Last Pap 12/09/2015 Obstetrics History GPAL:G 0 P 0 0 0 0 Immunizations Vaccine Type Date Status Note Provider Nam e and Address Organization Details Recorded Time influenza, unspecified formulation 5 completed Not Available [facility] 05/04/2022 17:45:26 Past Encounters Encounter ID Performer Location Encounter Start Date Encounter Closed Date Diagnosis/Indication Diagnosis SNOMED-CT Code Diagnosis ICD10 Code Diagnosis Note [id number] [facility] [address] [place] [address] 06/30/2021 00:00:00 07/01/2021 21:54:27 [id number] [facility] [address] [place] [address] 04/21/2022 00:00:00 05/01/2022 22:23:14 [id number] KINSEY Leblanc [facility] [address] [place] [address] 09/08/2022 11:09:49 09/08/2022 11:48:45 Adult health examination 071836007 Z00.01 annual wellness completed. lab orders given Hyperlipidemia 29320215 E78.5 fasting lipids due Hyperinsulinism 62112866 E16.1 fasting insulin due Migraine without aura 56 860331 G43.009 refill Ubrelvy 100mg Vitamin D deficiency 347 72288 E55.9 vit d lab due Chronic constipation 236 627723 K59.09 dietary managed at this time. keep fluids and fiber on board Long-term drug therapy 981340008 Z79.899 cbc, cmp, ua and b12, folate ordered Thyroid di sorder screening 384361193 Z13.29 Thyroid labs due Diabetes m ellitus screening 814319490 Z13.1 diabetes screening due Thoracic back pain 73016 8004 M54.6 check xray tspine Health Concerns Section Related Observation LastModified by Organization Detai ls LastModified Time None Recorded Concern Status LastModified by Organization Details LastModified Time None Recorded Advance Directives Directive N: Payers Encounter Date Sequence Insurance Name Policy Number Policy Craft Covered Member ID Craft Member ID Guarantor Name 09/08/2022 1 [facility] ([place] [id number] Ayde Coronel [id number] Ayde Coronel Notes Date Note Type Note Provider Name and Address Organization Details Recorded Time 2 text/html HyperlipidemiaReported bypatient.Duration:chronic Control:usually well controlled Compliance:compliant; compliant with diet; exercises Complications:no coronary artery disease; no peripheral artery disease; no cardiovascular disease Not Available [facility] [employer] 07/01/2021 21:54:27 3 text/html CoughReported bypatient.Quality:loose; non productive; dry (except for yesterday just a couple times was prod w/blood .);harsh Severity:pain with cough; staying about the same Duration:chronic (>8 weeks) Onset/Timing:actual date: (feb); becomes worse as the day goes on Context:non-smoker; worse at night Modifying Factors:OTC medication (mucinex, cough syrupk); 1 round of abx. Associated Symptoms:no fever; no chills; no heartburn; no edema; no agitation; no sputum production; no chest wall tenderness; no throat clearing; no dyspnea at rest or exertion;chest pain(w/cough);nausea;vomit ing;wheezing;post nasal drip;shortness of breath(exertion);nasal discharge Not Available [facility] [facility] [employer] 05/01/2022 22:23:14 3 text/html HyperlipidemiaReported bypatient.Control:usually well controlled; improving; at goal Compliance:compliant; compliant with diet; exercises Complications:no coronary artery disease; no peripheral artery disease; no cardiovascular disease wellnessc/o lingering nerve pain from shingles KINSYE Leblanc [address], [facility] [address], [place], [address], [facility] [employer] [facility] 10/03/2022 22:14:17 OBGyn Episode No OBEpisode recorded.
--- OUTSIDE RECORDS SUMMARY | 2024-05-14 13:12 | XMS_ITS | Referral Summary ---
Author Organization [facility] [address] Address [address] [place] [address] Care Team Providers Care Terrazzo Worker Name Role Phone Danny Lupis EUCEDA Primary Care Pr ovider Shukri Law MD Unavailable [phone] Eric Mohr MD Unavailable [phone] Encounters Date Type Department Care Team Description 03/20/2024 Telephone [facility] Maternal- Medicine [address] [facility] [facility] 7th [address] [place] [address] Mercedes Eason CMA Ultrasound from [...] elevated blood pressures at home. Normotensive in [facility] with normal labs complicated by nep [...] of Binge Drinking Not on file 12/06 [place] Depression Scale Answer Date Recorded [place] Depression Scale Total 2 09/02/2019 The thought of harming myself has occurred to me . Never 09/02/2019 Comments No Sex and Gender Information Value Date Recorded Sex Assigned at Female 01/04/2024 10:50 AM CDT Legal Sex Female 8:31 AM METALWORKING INSTRUCTOR Gender Identity Female 01/04/2024 10:50 AM CDT Sexual Orientation Straight 02/07/2019 9: 13 AM METALWORKING INSTRUCTOR Last Filed Vital Signs Vital Sign Reading Time Taken Comments Blood Pressure 136/88 01/04/2024 10:44 AM CDT Pulse 91 04/06/2022 11:26 AM METALWORKING INSTRUCTOR Temperature 36.8 C (98.2 F) 04/06/2022 11:26 AM METALWORKING INSTRUCTOR Respiratory Rate 20 04/06/2022 11:2 6 AM METALWORKING INSTRUCTOR Oxygen Saturation 99% 04/06/2022 11: 26 AM METALWORKING INSTRUCTOR Inhaled Oxygen Concentration - - Weight 75.2 kg (165 lb 12.8 oz) 024 10:44 AM CDT Height 165.1 cm (5' 5 ) 01/04/2024 10:4 4 AM CDT Body Mass Index 27.59 01/04/2024 10:44 AM CDT Plan of Treatment Not on file Procedures Procedure Name Priority Date/Time Associated Diagnosis Comments 17 HYDROXYPROGESTERONE Routine 9:37 AM METALWORKING INSTRUCTOR Abnormal uterine bleeding (AUB) DHEA-SULFATE Routine 04/15/2024 9:37 AM METALWORKING INSTRUCTOR Abnormal uterine bleeding (AUB) TESTOSTERONE, TOTAL AND FREE, SERUM Routine 04/15/2024 9:37 AM METALWORKING INSTRUCTOR Abnormal uterine bleeding (AUB) LUTEINIZING HORMONE (LH) Routine 025 9:37 AM METALWORKING INSTRUCTOR Abnormal uterine bleeding (AUB) ESTRADIOL Routine 04/15/2024 9:37 AM METALWORKING INSTRUCTOR Abnormal uterine bleeding (AUB) CBC WITH AUTO DIFFERENTIAL Routine 04/15 9:37 AM METALWORKING INSTRUCTOR Abnormal uterine bleeding (AUB) HEMOGLOBIN A1C Routine 04/15/2024 9:34 AM METALWORKING INSTRUCTOR Abnormal uterine bleeding (AUB) FOLLICLE STIMULATING HORMONE Routine 04/15/2024 9:34 AM METALWORKING INSTRUCTOR Abnormal uterine bleeding (AUB) THYROID FUNCTION CASCADE Routine 025 9:34 AM METALWORKING INSTRUCTOR Abnormal uterine bleeding (AUB) HIGH RISK HPV DNA DETECTION WITH GENOTYPING Routine 01/04/2024 11:46 AM CDT Cervical cancer screening HEPATITIS C AB W/REFL TO HCV RNA, QN, PCR (REFL) Routine 01/01/2019 11:49 AM CDT from Last 3 Months or Most Recently Relevant to Health Maintenance Results * (ABNORMAL) CBC with auto differential (04/15/2024 9:37 AM METALWORKING INSTRUCTOR) WBC 4.3 3.8 - 10.8 Thousand/u L [...] 11.0 - 15.0 % [facility] Platelets 288 140 - 400 Thousand/u L [...] [facility] Alexis Blood 04/15/2024 9:37 AM METALWORKING INSTRUCTOR 04/15/2024 9:37 AM METALWORKING INSTRUCTOR Narrative [facility] - 04/21/2024 7:52 PM METALWORKING INSTRUCTOR FASTING:YES FASTING: YES Jaylyn Gibbs MD LAB BLOOD ORDERABLES Fi nal Result Performing Organization Address City/[facility] [address]/ZIP Co de Phone Number [facility] [address] [place] [address] * 17-Hydroxyprogesterone (04/15/2024 9:37 AM METALWORKING INSTRUCTOR) 17-hydroxyproges terone 33 ng/dL [facility]Minnie rocha [facility], Comment: Adult Female Reference Ranges for 17-Hydroxyprogesterone: Pre-Menopausal Mid Follicular: 23-102 ng/dL Pre-Menopausal Surge: 67-349 ng/dL Pre-Menopausal Mid Luteal: 139-431 ng/dL Postmenopausal Phase: < or = 45 ng/dL : First Trimester: 78-457 ng/dL Second Trimester: 90-357 ng/dL Third Trimester: 144-578 ng/dL This test was developed and its analytical performance characteristics have been determined by [facility]. It has not been cleared or approved by FDA. This assay has been validated pursuant to the CLIA regulations and is used for clinical purposes. Blood 04/15/2024 9:37 AM METALWORKING INSTRUCTOR 04/15/2024 9:37 AM METALWORKING INSTRUCTOR Narrative [facility] - 04/21/2024 7:52 PM METALWORKING INSTRUCTOR FASTING:YES FASTING: YES Jaylyn Gibbs MD LAB BLOOD ORDERABLES Fi nal Result Performing Organization Address [facility] [address]/ZIP Co de Phone Number [facility], [address] [place] [address] * DHEA-sulfate (04/15/2024 9:37 AM METALWORKING INSTRUCTOR) DHEA-S 97 19 - 237 mcg/dL [facility] Blood 04/15/2024 9:37 AM METALWORKING INSTRUCTOR 04/15/2024 9:37 AM METALWORKING INSTRUCTOR Narrative [facility] - 04/21/2024 7:52 PM METALWORKING INSTRUCTOR FASTING:YES FASTING: YES us Jaylyn Gibbs MD LAB BLOOD ORDERABLES Fi nal Result [facility] [address] [place] [address] * Estradiol (04/15/2024 9:37 AM METALWORKING INSTRUCTOR) Pathologist [facility] Estradiol 70 pg/mL [facility] artemio Espinoza Comment: Reference Range Follicular Phase: 19-144 Mid-Cycle: 64-357 Luteal Phase: 56-214 Postmenopausal: < or = 31 Reference range established on post-pubertal patient population. No pre-pubertal reference range established using this assay. For any patients for whom low Estradiol levels are anticipated (e.g. males, pre-pubertal children and hypogonadal/post-menopausal females), the [facility] Estradiol, Ultrasensitive, LCMSMS assay is recommended (order code 36445). Please note: patients being treated with the drug fulvestrant (Faslodex(R)) have demonstrated significant interference in immunoassay methods for estradiol measurement. The cross reactivity could lead to falsely elevated estradiol test results leading to an inappropriate clinical assessment of estrogen status. [facility] order code 47954-[id number], Ultrasensitive LC/MS/MS demonstrates negligible cross reactivity with fulvestrant. Blood 04/15/2024 9:37 AM METALWORKING INSTRUCTOR 04/15/2024 9:37 AM METALWORKING INSTRUCTOR Narrative [facility] - 04/21/2024 7:52 PM METALWORKING INSTRUCTOR FASTING:YES FASTING: YES us Jaylyn Gibbs MD LAB BLOOD ORDERABLES Fi nal Result [facility] [address] [place] [address] * Testosterone, Total and Free, Serum (04/15/2024 9:37 AM METALWORKING INSTRUCTOR) Testosterone 17 2 - 45 ng/dL [facility] Comment: For additional information, please refer to https://education.sailsquare/faq/FNM239 (This link is being provided for informational/educational purposes only.) (Note) This test was developed and its analytical performance characteristics have been determined by [facility]. It has not been cleared or approved by the FDA. This assay has been validated pursuant to the CLIA regulations and is used for clinical purposes. Testosterone, free 2 0.1 - 6.4 pg/mL [facility] Comment: (Note) This test was developed and its analytical performance characteristics have been determined by [facility]. It has not been cleared or approved by the FDA. This assay has been validated pursuant to the CLIA regulations and is used for clinical purposes. [facility] [address] [address],[address] [place] [address] Sherman Mac MD, PhD Sex hormone binding globulin 39.5 17 - 124 nmol/L [facility] Blood 04/15/2024 9:37 AM METALWORKING INSTRUCTOR 04/15/2024 9:37 AM METALWORKING INSTRUCTOR Narrative [facility] - 04/21/2024 7:52 PM METALWORKING INSTRUCTOR FASTING:YES FASTING: YES Jaylyn Gibbs MD LAB BLOOD ORDERABLES Fi nal Result [facility] [address] [place] [address], [address] [place] [address] * LH (04/15/2024 9:37 AM METALWORKING INSTRUCTOR) Pathologist [facility] LH 14.9 mIU/mL [facility] Comment: Reference Range Follicular Phase 1.9-12.5 Mid-Cycle Peak 8.7-76.3 Luteal Phase 0.5-16.9 Postmenopausal 10.0-54.7 Blood 04/15/2024 9:37 AM METALWORKING INSTRUCTOR 04/15/2024 9:37 AM METALWORKING INSTRUCTOR Narrative [facility] - 04/21/2024 7:52 PM METALWORKING INSTRUCTOR FASTING:YES FASTING: YES Jaylyn Gibbs MD LAB BLOOD ORDERABLES Fi nal Result [facility] [address] [place] [address] * Thyroid Function [place] (04/15/2024 9:34 AM METALWORKING INSTRUCTOR) [facility] TSH 1.81 mIU/L [facility] Comment: Reference Range > or = 20 Years 0.40-4.50 Ranges First trimester 0.26-2.66 Second trimester 0.55-2.73 Third trimester 0.43-2.91 Blood 04/15/2024 9:34 AM METALWORKING INSTRUCTOR 04/15/2024 9:34 AM METALWORKING INSTRUCTOR Narrative [facility] - 04/16/2024 5:20 AM METALWORKING INSTRUCTOR FASTING:YES FASTING: YES Jaylyn Gibbs MD LAB BLOOD ORDERABLES Fi nal Result Performing Organization Address [facility] [address]/[facility] Co de Phone Number [facility] [address] [place] [address] * Hemoglobin A1c (04/15/2024 9:34 AM METALWORKING INSTRUCTOR) [facility] Hgb A1C 5.4 <5.7 % of total Hgb [facility] Comment: For the purpose of screening for the presence of diabetes: <5.7% Consistent with the absence of diabetes 5.7-6.4% Consistent with increased risk for diabetes (prediabetes) > or =6.5% Consistent with diabetes This assay result is consistent with a decreased risk of diabetes. Currently, no consensus exists regarding use of hemoglobin A1c for diagnosis of diabetes in children. According to [place] Diabetes Association (ADA) guidelines, hemoglobin A1c <7.0% represents optimal control in non- diabetic patients. Different metrics may apply to specific patient populations. Standards of Medical Care in Diabetes(ADA). Blood 04/15/2024 9:34 AM METALWORKING INSTRUCTOR 04/15/2024 9:34 AM METALWORKING INSTRUCTOR Narrative [facility] - 04/16/2024 5:20 AM METALWORKING INSTRUCTOR FASTING:YES FASTING: YES Jaylyn Gibbs MD LAB BLOOD ORDERABLES nal Result [facility] [address] [place] [address] * Follicle stimulating hormone (04/15/2024 9:34 AM METALWORKING INSTRUCTOR) [facility] FSH 11.1 mIU/mL [facility] Comment: Reference Range Follicular Phase 2.5-10.2 Mid-cycle Peak 3.1-17.7 Luteal Phase 1.5- 9.1 Postmenopausal 23.0-116.3 Blood 04/15/2024 9:34 AM METALWORKING INSTRUCTOR 04/15/2024 9:34 AM METALWORKING INSTRUCTOR Narrative [facility] - 04/16/2024 5:20 AM METALWORKING INSTRUCTOR FASTING:YES FASTING: YES Result [facility] Jaylyn Gibbs MD LAB BLOOD ORDERABLES [facility] Result Performing Organization Address City/[facility] [address]/[facility] Co de Phone Number [facility] [address] [place] [address] * High Risk HPV DNA Detection with Genotyping (Molecular component) (01/04/2024 11:46 AM CDT) [facility] HPV HR 16 Not Detected Not Detected [facility] HPV HR 18 Not Detected Not Detected [facility] HPV HR Non 16/18 Not Detected Not Detected [facility] Comment: Interpretive Data Nucleic acid amplification for [...] this test have been verified by the [facility] Molecular Infectious Disease laboratory. Correlate with separately [...] AND STO OLS ORDERABLES Final Result [facility] [place] [address] [facility] * HEPATITIS C AB W/REFL TO HCV [...] file for you. Please contact a client strategist if you would like additional testing done on this patient or contact your route salesman to obtain a client custom reflex testing authorization request form. SIGNAL TO CUT-OFF 0.01 <1.00 [facility] [place] Comment: HCV antibody was non-reactive. There is no laboratory evidence of HCV infection. In most cases, no further action is required. However, if recent HCV exposure is suspected, a test for HCV RNA (test code 93008) is suggested. For additional information please refer to http://education.sailsquare/faq/BTY25q8 (This link is being provided for informational/ educational purposes only.) 01/01/2019 11:4 9 AM CDT 01/01/2019 11:50 AM CDT Narrative Resulting Agency Comment Performing Organization Information: Site ID: [place] Name: [facility] Address: [address] [address] Director: Ming Tay D.O., MPH Marce EUCEDA LAB BLOOD ORDERABLES Final Result [facility] [place] from Last 3 Months or Most Recently Relevant to Health Maintenance Insurance [employer] OPEN ACCESS [employer] Advance Directives For more information, please contact: [phone] * Full Code (Latest Code Status on File) Date Activated Date Inactivated Comments 07/19/2019 12:49 PM 07/23/2019 7:46 PM * Full Code Date Activated Date Inactivated Comments 07/17/2019 7:57 PM 07/19/2019 12:49 PM Care Teams Terrazzo Worker Relationship Specialty Start Date End Date Lupis Delgado PA PCP - General Physician Mileage Clerk 12/10/18 Shukri Law MD 12/10/18 Eric Mohr MD [address] [facility] [address] [place] [address] Consulting Physician Rheumatology 12/10/18
--- OUTSIDE RECORDS SUMMARY | 2024-05-14 13:12 | XMS_ITS | Clinical Summary ---
Author Organization [facility] [address] [facility] Address [address] [place] [id number] Care Team Providers Care Pharmacy Tech Name Role Phone Lupis Delgadomohan EUCEDA Primary Care Pr ovider Shukri Law MD Unavailable [phone] Eric Mohr MD Unavailable [phone] Allergies Active Allergy Reactions Criticality Noted Date [...] elevated blood pressures at home. Normotensive in [facility] with normal labs complicated by nep [...] Type Department Care Team Description 03/20/2024 Telephone [facility] Maternal- Medicine [address] [facility] Out[facility] Health 7th Floor [address] [place] [address] Mercedes Eason CMA Ultrasound from Last 3 Months Immunizations Immunization Administration Dates Next Due Tdap 06/17/2019 Surgical History Surgery Date Site/Laterality Comments WI DILATION & CURETTAGE DX&/ THER NONOBSTETRIC Dilation And Curettage - (Added by TW Conv) [place] ENDOMETRIAL BX W/WO ENDOCERVIX BX W/O DILAT [...] of Binge Drinking Not on file 12/06 [place] Depression Scale Answer Date Recorded [place] Depression Scale Total 2 09/02/2019 The thought of harming myself has occurred to me . Never 09/02/2019 Comments No Sex and Gender Information Value Date Recorded Sex Assigned at Female 01/04/2024 10:50 AM CDT Legal Sex Female 8:31 AM [employer] Gender Identity Female 01/04/2024 10:50 AM CDT Sexual Orientation Straight 02/07/2019 9: 13 AM [employer] Obstetrics History Para Term AB IAB SAB [...] CK,GI RLCRY Cassia Fabian MD Complications:None Delivery Location:[facility] Main C ampus ([facility] L AND D PROCEDURE) Comments 2019-AV- S/p pLTCS for preec lampsia with severe featuresBaby girl in NICU, just CPAP Last Filed Vital Signs Vital Sign Reading Time Taken Comments Blood Pressure 136/88 01/04/2024 10:44 AM CDT Pulse 91 04/06/2022 11:26 AM [employer] Temperature 36.8 C (98.2 F) 04/06/2022 11:26 AM [employer] OFF[employer]ER Respiratory Rate 20 04/06/2022 11:2 6 AM [employer]ER Oxygen Saturation 99% 04/06/2022 11: 26 AM [employer] OFFICER Inhaled Oxygen Concentration - - Weight 75.2 [...] Diagnosis Comments 17 HYDROXYPROGESTERONE Routine 9:37 AM [employer]ICER Abnormal uterine bleeding (AUB) DHEA-SULFATE Routine 04/15/2024 9:37 AM [employer] OFFICER Abnormal uterine bleeding (AUB) TESTOSTERONE, TOTAL AND FREE, SERUM Routine 04/15/2024 9:37 AM [employer] OFFICER Abnormal uterine bleeding (AUB) LUTEINIZING HORMONE (LH) Routine 025 9:37 AM [employer] OFFICER Abnormal uterine bleeding (AUB) ESTRADIOL Routine 04/15/2024 9:37 AM [employer] OFFICER Abnormal uterine bleeding (AUB) CBC WITH AUTO DIFFERENTIAL Routine 04/15 9:37 AM [employer] OFFICER Abnormal uterine bleeding (AUB) HEMOGLOBIN A1C Routine 04/15/2024 9:34 AM [employer] OFFICER Abnormal uterine bleeding (AUB) FOLLICLE STIMULATING HORMONE Routine 04/15/2024 9:34 AM [employer] OFFICER Abnormal uterine bleeding (AUB) THYROID FUNCTION CASCADE Routine 025 9:34 AM [employer] OFFICER Abnormal uterine bleeding (AUB) HIGH RISK HPV DNA DETECTION WITH GENOTYPING Routine 01/04/2024 11:46 AM CDT Cervical cancer screening HEPATITIS C AB W/REFL TO HCV RNA, QN, PCR (REFL) Routine 01/01/2019 11:49 AM CDT from Last 3 Months or Most Recently Relevant to Health Maintenance Results * (ABNORMAL) CBC with auto differential (04/15/2024 9:37 AM [employer] OFFICER) WBC 4.3 3.8 - 10.8 Thousand/u L [facility] RBC, POC 4.91 3.80 - 5.10 Million/uL [facility] Hgb 14.6 11.7 - 15.5 g/dL [facility] Hct 45.9(H) 35.0 - [...] Diagnostics-S t Alexis Blood 04/15/2024 9:37 AM IN[employer]TRY [employer] OFFICER 04/15/2024 9:37 AM INF[employer]TRY [employer] OFFICER Narrative [facility] - 04/21/2024 7:52 PM [employer] OFFICER FASTING:YES FASTING: YES us Jaylyn Gibbs MD LAB BLOOD ORDERABLES Fi nal Result [facility] [address] [place] [address] * 17-Hydroxyprogesterone (04/15/2024 9:37 AM INF[employer] OFFICER) 17-hydroxyproges terone 33 ng/dL [facility], Comment: Adult Female Reference Ranges for 17-Hydroxyprogesterone: Pre-Menopausal Mid Follicular: 23-102 ng/dL Pre-Menopausal Surge: 67-349 ng/dL Pre-Menopausal Mid Luteal: 139-431 ng/dL Postmenopausal Phase: < or = 45 ng/dL : First Trimester: 78-457 ng/dL Second Trimester: 90-357 ng/dL Third Trimester: 144-578 ng/dL This test was developed and its analytical performance characteristics have been determined by [facility]. It has not been cleared or approved by FDA. This assay has been validated pursuant to the CLIA regulations and is used for clinical purposes. Blood 04/15/2024 9:37 AM INF[employer]TRY [employer] OFFICER 04/15/2024 9:37 AM INF[employer]TRY [employer] OFFICER Narrative [facility] - 04/21/2024 7:52 PM [employer]TRY [employer] OFFICER FASTING:YES FASTING: YES Jaylyn Gibbs MD LAB BLOOD ORDERABLES Fi nal Result Performing Organization Address [facility]/ZIP Co de Phone Number [facility], [address] [place] [address] * DHEA-sulfate (04/15/2024 9:37 AM INF[employer]TRY [employer] OFFICER) Pathologist [facility] DHEA-S 97 19 - 237 mcg/dL [facility]Ervin gutierrez Blood 04/15/2024 9:37 AM INFANTRY [employer] OFFICER 04/15/2024 9:37 AM INFANTRY WEAPONS OFFICER Narrative [facility] - 04/21/2024 7:52 PM INF[employer]TRY [employer] OFFICER FASTING:YES FASTING: YES Jaylyn Gibbs MD LAB BLOOD ORDERABLES Fi nal Result [facility] [address] [place] [address] * Estradiol (04/15/2024 9:37 AM INF[employer]TRY [employer] OFFICER) Estradiol 70 pg/mL [facility] Comment: Reference Range Follicular Phase: 19-144 Mid-Cycle: 64-357 Luteal Phase: 56-214 Postmenopausal: < or = 31 Reference range established on post-pubertal patient population. No pre-pubertal reference range established using this assay. For any patients for whom low Estradiol levels are anticipated (e.g. males, pre-pubertal children and hypogonadal/post-menopausal females), the [facility] Estradiol, Ultrasensitive, LCMSMS assay is recommended (order code 24740). Please note: patients being treated with the drug fulvestrant (Faslodex(R)) have demonstrated significant interference in immunoassay methods for estradiol measurement. The cross reactivity could lead to falsely elevated estradiol test results leading to an inappropriate clinical assessment of estrogen status. [facility] order code 19836-[facility], Ultrasensitive LC/MS/MS demonstrates negligible cross reactivity with fulvestrant. Blood 04/15/2024 9:37 AM INF[employer]TRY [employer] OFFICER 04/15/2024 9:37 AM INFANTRY WE[employer] OFFICER Narrative [facility] - 04/21/2024 7:52 PM INF[employer]TRY [employer] OFFICER FASTING:YES FASTING: YES Jaylyn Gibbs MD LAB BLOOD ORDERABLES Fi nal Result [facility] [address] [place] [address] * Testosterone, Total and Free, Serum (04/15/2024 9:37 AM INFANTRY [employer] OFFICER) [facility] Testosterone 17 2 - 45 ng/dL [employer] [facility] Comment: For additional information, please refer to https://education.Murfie/faq/LXE138 (This link is being provided for informational/educational purposes only.) (Note) This test was developed and its analytical performance characteristics have been determined by [employer]. It has not been cleared or approved by the FDA. This assay has been validated pursuant to the CLIA regulations and is used for clinical purposes. Testosterone, free 2 0.1 - 6.4 pg/mL [employer] Comment: (Note) This test was developed and its analytical performance characteristics have been determined by [employer]. It has not been cleared or approved by the FDA. This assay has been validated pursuant to the CLIA regulations and is used for clinical purposes. [facility] [address] [address],[address] [facility] [address] Sherman Mac MD, PhD Sex hormone binding globulin 39.5 17 - 124 nmol/L [facility] Blood 04/15/2024 9:37 AM INFANTRY [employer] OFFICER 04/15/2024 9:37 AM INF[employer]TRY [employer] OFFICER Narrative [facility] - 04/21/2024 7:52 PM INF[employer]TRY [employer] OFFICER FASTING:YES FASTING: YES Jaylyn Gibbs MD LAB BLOOD ORDERABLES Fi nal Result [facility] [address] [address], [address] [place] [address] * LH (04/15/2024 9:37 AM INF[employer]TRY [employer] OFFICER) LH 14.9 mIU/mL [facility] Comment: Reference Range Follicular Phase 1.9-12.5 Mid-Cycle Peak 8.7-76.3 Luteal Phase 0.5-16.9 Postmenopausal 10.0-54.7 Blood 04/15/2024 9:37 AM INF[employer]TRY [employer] OFFICER 04/15/2024 9:37 AM INFANTRY WE[employer] OFFICER Narrative [facility] - 04/21/2024 7:52 PM INF[employer]TRY [employer] OFFICER FASTING:YES FASTING: YES Jaylyn Gibbs MD LAB BLOOD ORDERABLES Fi nal Result [facility] [address] [place] [address] * Thyroid Function [place] (04/15/2024 9:34 AM INF[employer]TRY [employer] OFFICER) TSH 1.81 mIU/L [facility] Comment: Reference Range > or = 20 Years 0.40-4.50 Ranges First trimester 0.26-2.66 Second trimester 0.55-2.73 Third trimester 0.43-2.91 Blood 04/15/2024 9:34 AM INFANTRY [employer] OFFICER 04/15/2024 9:34 AM INFANTRY WE[employer] OFFICER Narrative [facility] - 04/16/2024 5:20 AM INFANTRY [employer] OFFICER FASTING:YES FASTING: YES Jaylyn Gibbs MD LAB BLOOD ORDERABLES Fi nal Result Performing Organization Address [facility] Co de Phone Number [facility] [address] [place] [address] * Hemoglobin A1c (04/15/2024 9:34 AM INFANTRY [employer] OFFICER) Pathologist [facility] Hgb A1C 5.4 <5.7 % of total Hgb [facility] Comment: For the purpose of screening for the presence of diabetes: <5.7% Consistent with the absence of diabetes 5.7-6.4% Consistent with increased risk for diabetes (prediabetes) > or =6.5% Consistent with diabetes This assay result is consistent with a decreased risk of diabetes. Currently, no consensus exists regarding use of hemoglobin A1c for diagnosis of diabetes in children. According to [place] Diabetes Association (ADA) guidelines, hemoglobin A1c <7.0% represents optimal control in non- diabetic patients. Different metrics may apply to specific patient populations. Standards of Medical Care in Diabetes(ADA). Blood 04/15/2024 9:34 AM INFANTRY WE[employer] OFFICER 04/15/2024 9:34 AM INFANTRY WEAPONS OFFICER Narrative [facility] - 04/16/2024 5:20 AM INFANTRY [employer] OFFICER FASTING:YES FASTING: YES Jaylyn Gibbs MD LAB BLOOD ORDERABLES Fi nal Result Performing Organization Address [facility] Co de Phone Number [facility] [address] [place] [address] * Follicle stimulating hormone (04/15/2024 9:34 AM INFANTRY WE[employer] OFFICER) Pathologist [facility] FSH 11.1 mIU/mL [facility] Comment: Reference Range Follicular Phase 2.5-10.2 Mid-cycle Peak 3.1-17.7 Luteal Phase 1.5- 9.1 Postmenopausal 23.0-116.3 Blood 04/15/2024 9:34 AM INFANTRY WE[employer] OFFICER 04/15/2024 9:34 AM INFANTRY WEAPONS OFFICER Narrative [facility] - 04/16/2024 5:20 AM INFANTRY WE[employer] OFFICER FASTING:YES FASTING: YES Jaylyn Gibbs MD LAB BLOOD ORDERABLES Fi nal Result [facility] [address] [facility] [place] [address] * High Risk HPV DNA Detection with Genotyping (Molecular component) (01/04/2024 11:46 AM CDT) HPV HR 16 Not Detected Not Detected [facility] HPV HR 18 Not Detected Not Detected [facility] HPV HR Non 16/18 Not Detected Not Detected [facility] Comment: Interpretive Data Nucleic acid amplification [...] this test have been verified by the [facility] Molecular Infectious Disease laboratory. Correlate with separately reported cytology results, as applicable. Interpretive data last revised 22 Endocervical 01/04/2024 11:4 6 AM CDT 01/05/2024 9:09 AM CDT Narrative [facility] - 01/05/2024 8:20 PM CDT Clinical history and diagnosis->screening Number of vials->1 Testing type->Screening Last menstrual period (date if known)->12/19/23 Menstrual status->Irregular us Jaylyn Gibbs MD LAB BODY FLUIDS AND STO OLS ORDERABLES Final Result [facility] One [facility] Department [place] [address] [facility] * HEPATITIS C AB W/REFL TO [...] file for you. Please contact a client executive if you would like additional testing done on this patient or contact your orthopedic shoes salesperson to obtain a client custom reflex testing authorization request form. SIGNAL TO CUT-OFF 0.01 <1.00 [facility] [place] Comment: HCV antibody was non-reactive. There is no laboratory evidence of HCV infection. In most cases, no further action is required. However, if recent HCV exposure is suspected, a test for HCV RNA (test code 23531) is suggested. For additional information please refer to http://education.Murfie/faq/GAU59y4 (This link is being provided for informational/ educational purposes only.) 01/01/2019 11:4 9 AM CDT 01/01/2019 11:50 AM CDT Narrative Resulting Agency Comment Performing Organization Information: Site ID: [place] Name: [facility] Address: [address] [place] [address] SH[place] Glover [address] Director: Ming Tay D.O., MPH Marce EUCEDA LAB BLOOD ORDERABLES Final Result [facility] [place] [place] from Last 3 Months or Most Recently Relevant to Health Maintenance Insurance [employer] [facility] [place] [facility] [employer] OOS Advance Directives For more information, please contact: [phone] * Full Code (Latest Code Status on File) Date Activated Date Inactivated Comments 07/19/2019 12:49 PM 07/23/2019 7:46 PM * Full Code Date Activated Date Inactivated Comments 07/17/2019 7:57 PM 07/19/2019 12:49 PM Care Teams Pharmacy Tech Relationship Specialty Start Date End Date Lupis Delgado PA PCP - General Physician Calculating Machine Mechanic 12/10/18 Shukri Law MD 12/10/18 Eric Mohr MD [address] [facility] [address] [place] [address] Consulting Physician Rheumatology 12/10/18
[2024-05-14 13:30] LABS: Alanine Aminotransferase 20 U/L (6-35); Albumin Level 5.2 g/dL (3.5-5.1); Alkaline Phosphatase 81 U/L (38-126); Anion Gap 13 mmol/L (4-12); Aspartate Amino Transferase 32 U/L (14-36); Bilirubin,Total 1.1 mg/dL (0.2-1.3); Blood Urea Nitrogen 10 mg/dL (7-17); Carbon Dioxide 24 mmol/L (22-30); Chloride 101 mmol/L (98-107); Estimated CRCL calculation 72 ml/min; Estimated Glomerular Filt Rate > 60; Glucose 91 mg/dL (65-110); Potassium 4.9 mmol/L (3.4-5.0); Sodium 138 mmol/L (137-145)
--- OUTSIDE RECORDS SUMMARY | 2024-05-14 13:51 | XMS_ITS | Clinical Summary ---
Author Organization [facility] [address] [facility] Address [address] [place] [id number] Care Team Providers Care Edge Baster Name Role Phone Lupis Delgadomohan [facility] Primary Care Pr ovider Shukri Law MD Unavailable [phone] Eric Mohr MD Unavailable [phone] Allergies Active Allergy Reactions Criticality Noted Date [...] elevated blood pressures at home. Normotensive in [facility] with normal labs complicated by [...] Type Department Care Team Description 03/20/2024 Telephone [facility] Maternal- Medicine [address] [facility] 7th Floor [address] [place] [address] Mercedes Eason CMA Ultrasound from Last 3 Months Immunizations Immunization Administration Dates Next Due Tdap 06/17/2019 Surgical History Surgery Date Site/Laterality Comments NE DILATION & CURETTAGE DX&/ THER NONOBSTETRIC Dilation And Curettage - (Added by TW Conv) NE ENDOMETRIAL BX W/WO ENDOCERVIX BX W/O DILAT [...] of Binge Drinking Not on file 12/06 Melvin Depression Scale Answer Date Recorded Melvin Depression Scale Total 2 09/02/2019 The thought of harming myself has occurred to me . Never 09/02/2019 Comments No Sex and Gender Information Value Date Recorded Sex Assigned at Female 01/04/2024 10:50 AM CDT Legal Sex Female 8:31 AM FULL TIME Gender Identity Female 01/04/2024 10:50 AM CDT Sexual Orientation Straight 02/07/2019 9: 13 AM FULL TIME Obstetrics History Para Term AB IAB SAB [...] CK,GI RLCRY Cassia Fabian MD Complications:None Delivery Location:[facility] Main C ampus ([facility] L AND D PROCEDURE) Comments 2019-AV- S/p pLTCS for preec lampsia with severe featuresBaby girl in NICU, just CPAP Last Filed Vital Signs Vital Sign Reading Time Taken Comments Blood Pressure 136/88 01/04/2024 10:44 AM CDT Pulse 91 04/06/2022 11:26 AM FULL TIME Temperature 36.8 C (98.2 F) 04/06/2022 11:26 AM FULL TIME Respiratory Rate 20 04/06/2022 11:2 6 AM FULL TIME Oxygen Saturation 99% 04/06/2022 11: 26 AM FULL TIME Inhaled Oxygen Concentration - - Weight 75.2 [...] Diagnosis Comments 17 HYDROXYPROGESTERONE Routine 9:37 AM FULL TIME Abnormal uterine bleeding (AUB) DHEA-SULFATE Routine 04/15/2024 9:37 AM FULL TIME Abnormal uterine bleeding (AUB) TESTOSTERONE, TOTAL AND FREE, SERUM Routine 04/15/2024 9:37 AM FULL TIME Abnormal uterine bleeding (AUB) LUTEINIZING HORMONE (LH) Routine 025 9:37 AM FULL TIME Abnormal uterine bleeding (AUB) ESTRADIOL Routine 04/15/2024 9:37 AM FULL TIME Abnormal uterine bleeding (AUB) CBC WITH AUTO DIFFERENTIAL Routine 04/15 9:37 AM FULL TIME Abnormal uterine bleeding (AUB) HEMOGLOBIN A1C Routine 04/15/2024 9:34 AM FULL TIME Abnormal uterine bleeding (AUB) FOLLICLE STIMULATING HORMONE Routine 04/15/2024 9:34 AM FULL TIME Abnormal uterine bleeding (AUB) THYROID FUNCTION CASCADE Routine 025 9:34 AM FULL TIME Abnormal uterine bleeding (AUB) HIGH RISK HPV DNA DETECTION WITH GENOTYPING Routine 01/04/2024 11:46 AM CDT Cervical cancer screening HEPATITIS C AB W/REFL TO HCV RNA, QN, PCR (REFL) Routine 01/01/2019 11:49 AM CDT from Last 3 Months or Most Recently Relevant to Health Maintenance Results * (ABNORMAL) CBC with auto differential (04/15/2024 9:37 AM FULL TIME) WBC 4.3 3.8 - 10.8 Thousand/u L [facility] RBC, POC 4.91 3.80 - 5.10 Million/uL [facility] Hgb 14.6 11.7 - 15.5 g/dL [facility] Hct 45.9(H) 35.0 - [...] Diagnostics-S t Alexis Blood 04/15/2024 9:37 AM FULL TIME 04/15/2024 9:37 AM FULL TIME Narrative [facility] - 04/21/2024 7:52 PM FULL TIME FASTING:YES FASTING: YES us Jaylyn Gibbs MD LAB BLOOD ORDERABLES Fi nal Result [facility] [address] [place] [address] * 17-Hydroxyprogesterone (04/15/2024 9:37 AM FULL TIME) 17-hydroxyproges terone 33 ng/dL [facility], Comment: Adult Female Reference Ranges for 17-Hydroxyprogesterone: Pre-Menopausal Mid Follicular: 23-102 ng/dL Pre-Menopausal Surge: 67-349 ng/dL Pre-Menopausal Mid Luteal: 139-431 ng/dL Postmenopausal Phase: < or = 45 ng/dL : First Trimester: 78-457 ng/dL Second Trimester: 90-357 ng/dL Third Trimester: 144-578 ng/dL This test was developed and its analytical performance characteristics have been determined by [facility]. It has not been cleared or approved by FDA. This assay has been validated pursuant to the CLIA regulations and is used for clinical purposes. Blood 04/15/2024 9:37 AM FULL TIME 04/15/2024 9:37 AM FULL TIME Narrative [facility] - 04/21/2024 7:52 PM FULL TIME FASTING:YES FASTING: YES Jaylyn Gibbs MD LAB BLOOD ORDERABLES Fi nal Result Performing Organization Address [facility]/ZIP Co de Phone Number [facility], [address] [place] [address] * DHEA-sulfate (04/15/2024 9:37 AM FULL TIME) Pathologist [facility] DHEA-S 97 19 - 237 mcg/dL [facility]Ervin gutierrez Blood 04/15/2024 9:37 AM FULL TIME 04/15/2024 9:37 AM FULL TIME Narrative [facility] - 04/21/2024 7:52 PM FULL TIME FASTING:YES FASTING: YES Jaylyn Gibbs MD LAB BLOOD ORDERABLES Fi nal Result [facility] [address] [place] [address] * Estradiol (04/15/2024 9:37 AM FULL TIME) Estradiol 70 pg/mL [facility] Comment: Reference Range Follicular Phase: 19-144 Mid-Cycle: 64-357 Luteal Phase: 56-214 Postmenopausal: < or = 31 Reference range established on post-pubertal patient population. No pre-pubertal reference range established using this assay. For any patients for whom low Estradiol levels are anticipated (e.g. males, pre-pubertal children and hypogonadal/post-menopausal females), the [facility] Estradiol, Ultrasensitive, LCMSMS assay is recommended (order code 38366). Please note: patients being treated with the drug fulvestrant (Faslodex(R)) have demonstrated significant interference in immunoassay methods for estradiol measurement. The cross reactivity could lead to falsely elevated estradiol test results leading to an inappropriate clinical assessment of estrogen status. [facility] order code [id number], Ultrasensitive LC/MS/MS demonstrates negligible cross reactivity with fulvestrant. Blood 04/15/2024 9:37 AM FULL TIME 04/15/2024 9:37 AM FULL TIME Narrative [facility] - 04/21/2024 7:52 PM FULL TIME FASTING:YES FASTING: YES Jaylyn Gibbs MD LAB BLOOD ORDERABLES Fi nal Result [facility] [address] [place] [address] * Testosterone, Total and Free, Serum (04/15/2024 9:37 AM FULL TIME) [facility] Testosterone 17 2 - 45 ng/dL [facility] Comment: For additional information, please refer to https://education.Corpsolv/faq/WRU981 (This link is being provided for informational/educational purposes only.) (Note) This test was developed and its analytical performance characteristics have been determined by [facility]. It has not been cleared or approved by the FDA. This assay has been validated pursuant to the CLIA regulations and is used for clinical purposes. Testosterone, free 2 0.1 - 6.4 pg/mL [facility] Comment: (Note) This test was developed and its analytical performance characteristics have been determined by [facility]. It has not been cleared or approved by the FDA. This assay has been validated pursuant to the CLIA regulations and is used for clinical purposes. [facility] [address] [address],[address] [facility] [address] Sherman Mac MD, PhD Sex hormone binding globulin 39.5 17 - 124 nmol/L [facility] Blood 04/15/2024 9:37 AM FULL TIME 04/15/2024 9:37 AM FULL TIME Narrative [facility] - 04/21/2024 7:52 PM FULL TIME FASTING:YES FASTING: YES Jaylyn Gibbs MD LAB BLOOD ORDERABLES Fi nal Result [facility] [address] [address], [address] [place] [address] * LH (04/15/2024 9:37 AM FULL TIME) LH 14.9 mIU/mL [facility] [facility] Comment: Reference Range Follicular Phase 1.9-12.5 Mid-Cycle Peak 8.7-76.3 Luteal Phase 0.5-16.9 Postmenopausal 10.0-54.7 Blood 04/15/2024 9:37 AM FULL TIME 04/15/2024 9:37 AM FULL TIME Narrative [facility] - 04/21/2024 7:52 PM FULL TIME FASTING:YES FASTING: YES Jaylyn Gibbs MD LAB BLOOD ORDERABLES Fi nal Result [facility] [address] [place] [address] * Thyroid Function [place] (04/15/2024 9:34 AM FULL TIME) TSH 1.81 mIU/L [facility] Comment: Reference Range > or = 20 Years 0.40-4.50 Ranges First trimester 0.26-2.66 Second trimester 0.55-2.73 Third trimester 0.43-2.91 Blood 04/15/2024 9:34 AM FULL TIME 04/15/2024 9:34 AM FULL TIME Narrative [facility] - 04/16/2024 5:20 AM FULL TIME FASTING:YES FASTING: YES Jaylyn Gibbs MD LAB BLOOD ORDERABLES Fi nal Result Performing Organization Address [facility] Co de Phone Number [facility] [address] [place] [address] * Hemoglobin A1c (04/15/2024 9:34 AM FULL TIME) Pathologist [facility] Hgb A1C 5.4 <5.7 % of total Hgb [facility] Comment: For the purpose of screening for the presence of diabetes: <5.7% Consistent with the absence of diabetes 5.7-6.4% Consistent with increased risk for diabetes (prediabetes) > or =6.5% Consistent with diabetes This assay result is consistent with a decreased risk of diabetes. Currently, no consensus exists regarding use of hemoglobin A1c for diagnosis of diabetes in children. According to [place] Diabetes Association (ADA) guidelines, hemoglobin A1c <7.0% represents optimal control in non- diabetic patients. Different metrics may apply to specific patient populations. Standards of Medical Care in Diabetes(ADA). Blood 04/15/2024 9:34 AM FULL TIME 04/15/2024 9:34 AM FULL TIME Narrative [facility] - 04/16/2024 5:20 AM FULL TIME FASTING:YES FASTING: YES Jaylyn Gibbs MD LAB BLOOD ORDERABLES Fi nal Result Performing Organization Address [facility] Co de Phone Number [facility] [address] [place] [address] * Follicle stimulating hormone (04/15/2024 9:34 AM FULL TIME) Pathologist [facility] FSH 11.1 mIU/mL [facility] Comment: Reference Range Follicular Phase 2.5-10.2 Mid-cycle Peak 3.1-17.7 Luteal Phase 1.5- 9.1 Postmenopausal 23.0-116.3 Blood 04/15/2024 9:34 AM FULL TIME 04/15/2024 9:34 AM FULL TIME Narrative [facility] - 04/16/2024 5:20 AM FULL TIME FASTING:YES FASTING: YES Jaylyn Gibbs MD LAB BLOOD ORDERABLES Fi nal Result [facility] [address] [facility] [place] [address] * High Risk HPV DNA Detection with Genotyping (Molecular component) (01/04/2024 11:46 AM CDT) HPV HR 16 Not Detected Not Detected [facility] HPV HR 18 Not Detected Not Detected [facility] HPV HR Non 16/18 Not Detected Not Detected [facility] Comment: Interpretive Data Nucleic acid amplification [...] this test have been verified by the [facility] Molecular Infectious Disease laboratory. Correlate with separately reported cytology results, as applicable. Interpretive data last revised 22 Endocervical 01/04/2024 11:4 6 AM CDT 01/05/2024 9:09 AM CDT Narrative [facility] - 01/05/2024 8:20 PM CDT Clinical history and diagnosis->screening Number of vials->1 Testing type->Screening Last menstrual period (date if known)->12/19/23 Menstrual status->Irregular us Jaylyn Gibbs MD LAB BODY FLUIDS AND STO OLS ORDERABLES Final Result [facility] Department [place] [address] [facility] * HEPATITIS C AB W/REFL TO HCV [...] file for you. Please contact a client services representative if you would like additional testing done on this patient or contact your parts salesman to obtain a client custom reflex testing authorization request form. SIGNAL TO CUT-OFF 0.01 <1.00 [facility] [place] Comment: HCV antibody was non-reactive. There is no laboratory evidence of HCV infection. In most cases, no further action is required. However, if recent HCV exposure is suspected, a test for HCV RNA (test code 65833) is suggested. For additional information please refer to http://education.Corpsolv/faq/RJI79b8 (This link is being provided for informational/ educational purposes only.) 01/01/2019 11:4 9 AM CDT 01/01/2019 11:50 AM CDT Narrative Resulting Agency Comment Performing Organization Information: Site ID: [place] Name: [facility] Address: [address] [place] [address] SHENG Glover [address] Director: Ming Tay D.O., MPH Marce EUCEDA LAB BLOOD ORDERABLES Final Result [facility] [place] [place] from Last 3 Months or Most Recently Relevant to Health Maintenance Insurance [employer] [facility] [facility] [place] [facility] [employer] OOS Advance Directives For more information, please contact: [phone] * Full Code (Latest Code Status on File) Date Activated Date Inactivated Comments 07/19/2019 12:49 PM 07/23/2019 7:46 PM * Full Code Date Activated Date Inactivated Comments 07/17/2019 7:57 PM 07/19/2019 12:49 PM Care Teams Edge Baster Relationship Specialty Start Date End Date Lupis Delgado PA PCP - General Physician Diamond Setter Apprentice 12/10/18 Shukri Law MD 12/10/18 rEic Mohr MD [address] [facility] [address] [place] [address] Consulting Physician Rheumatology 12/10/18
--- OUTSIDE RECORDS SUMMARY | 2024-05-14 13:51 | XMS_ITS | Referral Summary ---
Author Organization [facility] [address] Address [address] [place] [address] Care Team Providers Care Shop Teacher Name Role Phone Danny Lupis EUCEDA Primary Care Pr ovider Shukri Law MD Unavailable [phone] Eric Mohr MD Unavailable [phone] Encounters Date Type Department Care Team Description 03/20/2024 Telephone [facility] Maternal- Medicine [address] [facility] 7th Floor [address] [place] [address] Mercedes Eason CMA Ultrasound from [...] of Binge Drinking Not on file 12/06 [place] Depression Scale Answer Date Recorded [place] Depression Scale Total 2 09/02/2019 The thought of harming myself has occurred to me . Never 09/02/2019 Comments No Sex and Gender Information Value Date Recorded Sex Assigned at Female 01/04/2024 10:50 AM CDT Legal Sex Female 8:31 AM DEVELOPMENT ADMINISTRATOR Gender Identity Female 01/04/2024 10:50 AM CDT Sexual Orientation Straight 02/07/2019 9: 13 AM DEVELOPMENT ADMINISTRATOR Last Filed Vital Signs Vital Sign Reading Time Taken Comments Blood Pressure 136/88 01/04/2024 10:44 AM CDT Pulse 91 04/06/2022 11:26 AM DEVELOPMENT ADMINISTRATOR Temperature 36.8 C (98.2 F) 04/06/2022 11:26 AM DEVELOPMENT ADMINISTRATOR Respiratory Rate 20 04/06/2022 11:2 6 AM DEVELOPMENT ADMINISTRATOR Oxygen Saturation 99% 04/06/2022 11: 26 AM DEVELOPMENT ADMINISTRATOR Inhaled Oxygen Concentration - - Weight 75.2 kg (165 lb 12.8 oz) 024 10:44 AM CDT Height 165.1 cm (5' 5 ) 01/04/2024 10:4 4 AM CDT Body Mass Index 27.59 01/04/2024 10:44 AM CDT Plan of Treatment Not on file Procedures Procedure Name Priority Date/Time Associated Diagnosis Comments 17 HYDROXYPROGESTERONE Routine 9:37 AM DEVELOPMENT ADMINISTRATOR Abnormal uterine bleeding (AUB) DHEA-SULFATE Routine 04/15/2024 9:37 AM DEVELOPMENT ADMINISTRATOR Abnormal uterine bleeding (AUB) TESTOSTERONE, TOTAL AND FREE, SERUM Routine 04/15/2024 9:37 AM DEVELOPMENT ADMINISTRATOR Abnormal uterine bleeding (AUB) LUTEINIZING HORMONE (LH) Routine 025 9:37 AM DEVELOPMENT ADMINISTRATOR Abnormal uterine bleeding (AUB) ESTRADIOL Routine 04/15/2024 9:37 AM DEVELOPMENT ADMINISTRATOR Abnormal uterine bleeding (AUB) CBC WITH AUTO DIFFERENTIAL Routine 04/15 9:37 AM DEVELOPMENT ADMINISTRATOR Abnormal uterine bleeding (AUB) HEMOGLOBIN A1C Routine 04/15/2024 9:34 AM DEVELOPMENT ADMINISTRATOR Abnormal uterine bleeding (AUB) FOLLICLE STIMULATING HORMONE Routine 04/15/2024 9:34 AM DEVELOPMENT ADMINISTRATOR Abnormal uterine bleeding (AUB) THYROID FUNCTION CASCADE Routine 025 9:34 AM DEVELOPMENT ADMINISTRATOR Abnormal uterine bleeding (AUB) HIGH RISK HPV DNA DETECTION WITH GENOTYPING Routine 01/04/2024 11:46 AM CDT Cervical cancer screening HEPATITIS C AB W/REFL TO HCV RNA, QN, PCR (REFL) Routine 01/01/2019 11:49 AM CDT from Last 3 Months or Most Recently Relevant to Health Maintenance Results * (ABNORMAL) CBC with auto differential (04/15/2024 9:37 AM DEVELOPMENT ADMINISTRATOR) WBC 4.3 3.8 - 10.8 Thousand/u L [...] Diagnostics-S t Alexis Blood 04/15/2024 9:37 AM DEVELOPMENT ADMINISTRATOR 04/15/2024 9:37 AM DEVELOPMENT ADMINISTRATOR Narrative [facility] - 04/21/2024 7:52 PM DEVELOPMENT ADMINISTRATOR FASTING:YES FASTING: YES Jaylyn Gibbs MD LAB BLOOD ORDERABLES Fi nal Result Performing Organization Address City/[facility]/ZIP Co de Phone Number [facility] [address] [place] [address] * 17-Hydroxyprogesterone (04/15/2024 9:37 AM DEVELOPMENT ADMINISTRATOR) 17-hydroxyproges terone 33 ng/dL [facility]/Minnie rocha [facility], Comment: Adult Female Reference Ranges for 17-Hydroxyprogesterone: Pre-Menopausal Mid Follicular: 23-102 ng/dL Pre-Menopausal Surge: 67-349 ng/dL Pre-Menopausal Mid Luteal: 139-431 ng/dL Postmenopausal Phase: < or = 45 ng/dL : First Trimester: 78-457 ng/dL Second Trimester: 90-357 ng/dL Third Trimester: 144-578 ng/dL This test was developed and its analytical performance characteristics have been determined by [facility]. It has not been cleared or approved by FDA. This assay has been validated pursuant to the CLIA regulations and is used for clinical purposes. Blood 04/15/2024 9:37 AM DEVELOPMENT ADMINISTRATOR 04/15/2024 9:37 AM DEVELOPMENT ADMINISTRATOR Narrative [facility] - 04/21/2024 7:52 PM DEVELOPMENT ADMINISTRATOR FASTING:YES FASTING: YES Jaylyn Gibbs MD LAB BLOOD ORDERABLES Fi nal Result Performing Organization Address [facility]/ZIP Co de Phone Number [facility], [address] [place] [address] * DHEA-sulfate (04/15/2024 9:37 AM DEVELOPMENT ADMINISTRATOR) DHEA-S 97 19 - 237 mcg/dL [facility] Blood 04/15/2024 9:37 AM DEVELOPMENT ADMINISTRATOR 04/15/2024 9:37 AM DEVELOPMENT ADMINISTRATOR Narrative [facility] - 04/21/2024 7:52 PM DEVELOPMENT ADMINISTRATOR FASTING:YES FASTING: YES us Jaylyn Gibbs MD LAB BLOOD ORDERABLES Fi nal Result [facility] [address] [place] [address] * Estradiol (04/15/2024 9:37 AM DEVELOPMENT ADMINISTRATOR) Pathologist [facility] Estradiol 70 pg/mL [facility] artemio Espinoza Comment: Reference Range Follicular Phase: 19-144 Mid-Cycle: 64-357 Luteal Phase: 56-214 Postmenopausal: < or = 31 Reference range established on post-pubertal patient population. No pre-pubertal reference range established using this assay. For any patients for whom low Estradiol levels are anticipated (e.g. males, pre-pubertal children and hypogonadal/post-menopausal females), the [facility] Estradiol, Ultrasensitive, LCMSMS assay is recommended (order code 98945). Please note: patients being treated with the drug fulvestrant (Faslodex(R)) have demonstrated significant interference in immunoassay methods for estradiol measurement. The cross reactivity could lead to falsely elevated estradiol test results leading to an inappropriate clinical assessment of estrogen status. [facility] order code [id number], Ultrasensitive LC/MS/MS demonstrates negligible cross reactivity with fulvestrant. Blood 04/15/2024 9:37 AM DEVELOPMENT ADMINISTRATOR 04/15/2024 9:37 AM DEVELOPMENT ADMINISTRATOR Narrative [facility] - 04/21/2024 7:52 PM DEVELOPMENT ADMINISTRATOR FASTING:YES FASTING: YES us Jaylyn Gibbs MD LAB BLOOD ORDERABLES Fi nal Result [facility] [address] [place] [address] * Testosterone, Total and Free, Serum (04/15/2024 9:37 AM DEVELOPMENT ADMINISTRATOR) Testosterone 17 2 - 45 ng/dL [employer] [facility] Comment: For additional information, please refer to https://education.[employer]/faq/HDF497 (This link is being provided for informational/educational purposes only.) (Note) This test was developed and its analytical performance characteristics have been determined by [employer]. It has not been cleared or approved by the FDA. This assay has been validated pursuant to the CLIA regulations and is used for clinical purposes. Testosterone, free 2 0.1 - 6.4 pg/mL [facility] [place] Comment: (Note) This test was developed and its analytical performance characteristics have been determined by [facility]. It has not been cleared or approved by the FDA. This assay has been validated pursuant to the CLIA regulations and is used for clinical purposes. [facility] [address] [address],[address] [place] [address] Sherman Mac MD, PhD Sex hormone binding globulin 39.5 17 - 124 nmol/L [employer] Blood 04/15/2024 9:37 AM DEVELOPMENT ADMINISTRATOR 04/15/2024 9:37 AM DEVELOPMENT ADMINISTRATOR Narrative [facility] - 04/21/2024 7:52 PM DEVELOPMENT ADMINISTRATOR FASTING:YES FASTING: YES Jaylyn Gibbs MD LAB BLOOD ORDERABLES Fi nal Result [facility] [address] [facility] [place] [address], [address] [place] [address] * LH (04/15/2024 9:37 AM DEVELOPMENT ADMINISTRATOR) Pathologist [facility] LH 14.9 mIU/mL [facility] Comment: Reference Range Follicular Phase 1.9-12.5 Mid-Cycle Peak 8.7-76.3 Luteal Phase 0.5-16.9 Postmenopausal 10.0-54.7 Blood 04/15/2024 9:37 AM DEVELOPMENT ADMINISTRATOR 04/15/2024 9:37 AM DEVELOPMENT ADMINISTRATOR Narrative [facility] - 04/21/2024 7:52 PM DEVELOPMENT ADMINISTRATOR FASTING:YES FASTING: YES Jaylyn Gibbs MD LAB BLOOD ORDERABLES Fi nal Result [facility] [address] [place] [id number] * Thyroid Function [place] (04/15/2024 9:34 AM DEVELOPMENT ADMINISTRATOR) [facility] TSH 1.81 mIU/L [facility] Comment: Reference Range > or = 20 Years 0.40-4.50 Ranges First trimester 0.26-2.66 Second trimester 0.55-2.73 Third trimester 0.43-2.91 Blood 04/15/2024 9:34 AM DEVELOPMENT ADMINISTRATOR 04/15/2024 9:34 AM DEVELOPMENT ADMINISTRATOR Narrative [facility] - 04/16/2024 5:20 AM DEVELOPMENT ADMINISTRATOR FASTING:YES FASTING: YES Jaylyn Gibbs MD LAB BLOOD ORDERABLES Fi nal Result Performing Organization Address [facility] Co de Phone Number [facility] [address] [place] [address] * Hemoglobin A1c (04/15/2024 9:34 AM DEVELOPMENT ADMINISTRATOR) [facility] Hgb A1C 5.4 <5.7 % of total Hgb [facility] Comment: For the purpose of screening for the presence of diabetes: <5.7% Consistent with the absence of diabetes 5.7-6.4% Consistent with increased risk for diabetes (prediabetes) > or =6.5% Consistent with diabetes This assay result is consistent with a decreased risk of diabetes. Currently, no consensus exists regarding use of hemoglobin A1c for diagnosis of diabetes in children. According to [place] Diabetes Association (ADA) guidelines, hemoglobin A1c <7.0% represents optimal control in non- diabetic patients. Different metrics may apply to specific patient populations. Standards of Medical Care in Diabetes(ADA). Blood 04/15/2024 9:34 AM DEVELOPMENT ADMINISTRATOR 04/15/2024 9:34 AM DEVELOPMENT ADMINISTRATOR Narrative [facility] - 04/16/2024 5:20 AM DEVELOPMENT ADMINISTRATOR FASTING:YES FASTING: YES Jaylyn Gibbs MD LAB BLOOD ORDERABLES nal Result [facility] [address] [place] [address] * Follicle stimulating hormone (04/15/2024 9:34 AM DEVELOPMENT ADMINISTRATOR) [facility] FSH 11.1 mIU/mL [facility] [facility] Comment: Reference Range Follicular Phase 2.5-10.2 Mid-cycle Peak 3.1-17.7 Luteal Phase 1.5- 9.1 Postmenopausal 23.0-116.3 Blood 04/15/2024 9:34 AM DEVELOPMENT ADMINISTRATOR 04/15/2024 9:34 AM DEVELOPMENT ADMINISTRATOR Narrative [facility] - 04/16/2024 5:20 AM DEVELOPMENT ADMINISTRATOR FASTING:YES FASTING: YES Result [facility] Jaylyn Gibbs MD LAB BLOOD ORDERABLES [facility] Result Performing Organization Address City/[facility] Co de Phone Number [facility] [address] [place] [address] * High Risk HPV DNA Detection with Genotyping (Molecular component) (01/04/2024 11:46 AM CDT) [facility] HPV HR 16 Not Detected Not Detected [facility] HPV HR 18 Not Detected Not Detected [facility] HPV HR Non 16/18 Not Detected Not Detected [facility] Comment: Interpretive Data Nucleic acid amplification for [...] this test have been verified by the [facility] Molecular Infectious Disease laboratory. Correlate [...] AND STO OLS ORDERABLES Final Result [facility] Department [place] [address] [facility] * HEPATITIS C AB W/REFL TO [...] on file for you. Please contact a director client services if you would like additional testing done on this patient or contact your team sports sales associate to obtain a client custom reflex testing authorization request form. SIGNAL TO CUT-OFF 0.01 <1.00 [facility] [place] Comment: HCV antibody was non-reactive. There is no laboratory evidence of HCV infection. In most cases, no further action is required. However, if recent HCV exposure is suspected, a test for HCV RNA (test code 05898) is suggested. For additional information please refer to http://education.[employer]/faq/IIM80s1 (This link is being provided for informational/ educational purposes only.) 01/01/2019 11:4 9 AM CDT 01/01/2019 11:50 AM CDT Narrative Resulting Agency Comment Performing Organization Information: Site ID: [place] Name: [facility] Address: [address] [address] Director: Ming Tay D.O., MPH Marce EUCEDA LAB BLOOD ORDERABLES Final Result [facility] [place] from Last 3 Months or Most Recently Relevant to Health Maintenance Insurance [employer] OOS [employer] [place] [employer] OPEN ACCESS [employer]OS Advance Directives For more information, please contact: [phone] * Full Code (Latest Code Status on File) Date Activated Date Inactivated Comments 07/19/2019 12:49 PM 07/23/2019 7:46 PM * Full Code Date Activated Date Inactivated Comments 07/17/2019 7:57 PM 07/19/2019 12:49 PM Care Teams Shop Teacher Relationship Specialty Start Date End Date Lupis Delgado PA PCP - General Physician Physician Interventional Cardiologist 12/10/18 Shukri Law MD 12/10/18 Eric Mohr MD [address] [facility] [address] [place] [address] Consulting Physician Rheumatology 12/10/18
--- NOTE | 2024-05-14 14:54 | PC.NURSE ---
Lab called to add on troponin and d-dimer.
[2024-05-14 15:19] LABS: D Dimer < 0.27 ug/mL (<0.48)
[2024-05-14 15:40] LABS: Troponin I < 0.012 ng/mL (0.000-0.034)
== END 2024-05-14 16:54 | disposition home or self-care (01) ==
PROVIDERS: Physician Assistant; Emergency Provider Student in an Organized Health Care Education/Training Program; PCP Physician Assistant
DX: R55 Syncope and collapse (principal)
CPT/HCPCS: 36415; 70450; 71046; 80053; 81025; 84484; 85025; 85380; 93005; 93242; 99284

== ENCOUNTER 2024-08-20 08:32 | Outpatient (CLI) | payer BC, SELFPAY ==
--- NOTE | 2024-08-20 08:39 | EST_ITS ---
Patient Info Name: Ayde Coronel Age: 39 years : 1985 Gender: Female Ht: 65 in Wt: 150 lbs BSA: 1.78 m2 HR: 58 bpm BP: 113 / 64 mmHg Exam Date: 08/20/2024 8:39 AM Patient Status: O Admit Date: 08/20/2024 Exam Type: CA stress test treadmill A treadmill exercise stress test was performed. Staff Attending Provider: Ronald Gallegos DO Exercise Technologist: Michaelle Gabriel Exercise Physician: Ronald Gallegos DO Summary 1. 1. Negative Hal exercise stress test for ischemic ST changes by ECG criteria. 2. 2. Good functional capacity, achieving 10 METs of workload. 3. 3. Appropriate HR response to exercise. 4. 4. Appropriate HR recovery at 1 minute post exercise. 5. 5. No imaging with stress testing. 6. 6. Patient informed of the above results. Protocol: Hal Stress ECG Details Stage: REST Duration (min): 1 min : 3 sec Speed (mph): 0.0 Grade (%): 0 HR (bpm): 75 SBP (mmHg): 125 DBP (mmHg): 80 METS: --- Stage: REST Duration (min): 3 min : 27 sec Speed (mph): 0.0 Grade (%): 0 HR (bpm): 87 SBP (mmHg): 125 DBP (mmHg): 80 METS: --- Stage: STAGE 1 Duration (min): 1 min : 0 sec Speed (mph): 1.7 Grade (%): 10 HR (bpm): 105 SBP (mmHg): 125 DBP (mmHg): 80 METS: --- Stage: STAGE 1 Duration (min): 2 min : 0 sec Speed (mph): 1.7 Grade (%): 10 HR (bpm): 119 SBP (mmHg): 125 DBP (mmHg): 80 METS: --- Stage: STAGE 1 Duration (min): 3 min : 0 sec Speed (mph): 1.7 Grade (%): 10 HR (bpm): 124 SBP (mmHg): 146 DBP (mmHg): 81 METS: --- Stage: STAGE 2 Duration (min): 1 min : 0 sec Speed (mph): 2.5 Grade (%): 12 HR (bpm): 139 SBP (mmHg): 146 DBP (mmHg): 81 METS: --- Stage: STAGE 2 Duration (min): 2 min : 0 sec Speed (mph): 2.5 Grade (%): 12 HR (bpm): 147 SBP (mmHg): 148 DBP (mmHg): 82 METS: --- Stage: STAGE 2 Duration (min): 3 min : 0 sec Speed (mph): 2.5 Grade (%): 12 HR (bpm): 150 SBP (mmHg): 148 DBP (mmHg): 82 METS: --- Stage: STAGE 3 Duration (min): 1 min : 0 sec Speed (mph): 3.4 Grade (%): 14 HR (bpm): 163 SBP (mmHg): 199 DBP (mmHg): 82 METS: --- Stage: STAGE 3 Duration (min): 2 min : 0 sec Speed (mph): 3.4 Grade (%): 14 HR (bpm): 170 SBP (mmHg): 199 DBP (mmHg): 82 METS: --- Stage: STAGE 3 Duration (min): 2 min : 0 sec Speed (mph): 3.4 Grade (%): 14 HR (bpm): 169 SBP (mmHg): 199 DBP (mmHg): 82 METS: --- Stage: RECOVERY Duration (min): 0 min : 59 sec Speed (mph): 0.0 Grade (%): 0 HR (bpm): 128 SBP (mmHg): 139 DBP (mmHg): 84 METS: --- Stage: RECOVERY Duration (min): 1 min : 59 sec Speed (mph): 0.0 Grade (%): 0 HR (bpm): 107 SBP (mmHg): 139 DBP (mmHg): 84 METS: --- Stage: RECOVERY Duration (min): 2 min : 59 sec Speed (mph): 0.0 Grade (%): 0 HR (bpm): 103 SBP (mmHg): 134 DBP (mmHg): 81 METS: --- Stage: RECOVERY Duration (min): 3 min : 5 sec Speed (mph): 0.0 Grade (%): 0 HR (bpm): 102 SBP (mmHg): 134 DBP (mmHg): 81 METS: --- Rest HR: 87 bpm Peak HR: 170 bpm Rest Sys BP: 125 mmHg Peak Sys BP: 199 mmHg Max Pred HR: 179 bpm % Max Pred HR: 95 % Target HR: 152 bpm Max RPP: 33,830 bpm*mmHg Renner Score: 4 Termination Reason: Reached target heart rate or workload Cardiac Symptoms: Shortness of breath Max ST Seg Deviation: 0.90 mm Total Time: 8 min : 0 sec Rest Augustine BP: 80 mmHg Peak Augustine BP: 82 mmHg Angina Score: None Total METS: 10.3 Resting ECG Sinus rhythm. Stress ECG No ST changes. Arrhythmias None. Report Signatures
--- OUTSIDE RECORDS SUMMARY | 2024-08-20 08:50 | XMS_ITS | Data Portability ---
Author Organization [facility] BRUNAJo Ann Address [address] [place] [address] Care Team Providers Care Security Coordinator Name Role Phone LUPIS IRELAND Primary Care [...] DO Not Attach Compendium, Do Not Delete/merge, [id number] 4 10:20:48 amylase, serum or plasma 2023 024 [email or web address] [facility], [address], [place], [address], 5 10:11:46 lipase, serum or plasma 2023 024 [email or web address] [facility], [address], [place], [address], 5 10:11:46 CMP, serum or plasma 2023 024 [email or web address] [facility], [address], [place], [address], 5 10:11:46 CBC w/ auto diff 2023 024 [email or web address], [address], [place], [address], 5 10:11:47 TSH + free T4, serum 2023 024 [email or web address] [facility] [employer] [facility], [address], [place], [address], 5 09:34:21 HbA1c (hemoglobi n A1c), blood 2023 024 [email or web address] [employer] [facility], [address], [place], [address], 5 10:11:47 lipid panel, serum 2023 024 [email or web address] [employer] [facility], [address], [place], [address], 5 10:11:47 Referral hand surgeon referral 2024 025 [email or web address] Estrada MD, [address] [place] [address] [address], [place], [address], 5 10:46:14 Procedures None recorded. Surgeries None recorded. Imaging US, wrist 2024 025 [facility], [address] [place] [address], [address], [place], [address], 5 08:52:29 XR, chest, 2 view 2023 024 [facility], [address], [address], [place], [address], 5 17:24:38 US, gallbladde r 2023 024 [facility], [facility], [facility] [address], [place], [address], 5 15:56:21 Medication Orders Tubersol 5 tub. unit/0.1 mL intraderma l injection solution 2023 024 [email or web address] Not available 4 12:12:02 famotidine 40 mg tablet 2023 024 [email or web address] [facility], [address] [place], [address], 4 21:40:47 Linzess 145 mcg capsule 2023 025 [facility] [address] [place], [address], 5 10:37:35 Qulipta 60 mg tablet 2023 024 [facility], [address] [place], [address], 4 12:56:53 alprazolam 0.25 mg tablet 2023 025 [facility], [address] [place], [address], 5 10:37:47 Patient TargetsNo targets recorded. Patient [...] DO Not Attach Compendium, Do Not Delete/merge, [id number] 02/26/2024 11:42:30 04/22/19 25 04/19/2024 US, wrist No observ ation record ed. [facility] [address] [facility] [address], [place], [address], 04/24/2024 13:54:42 04/23/19 25 04/23/2024 XR, hand No observ ation record ed. [address] [address], [place], [address], 04/23/2024 16:52:00 05/15/19 25 05/14/2024 XR, chest , 2 view No observ ation record ed. [address] [address], [place], [address], 05/14/2024 18:09:34 05/15/19 25 05/14/2024 CT, head, w/o contr ast No observ ation record ed. [address] [address], [place], [address], 05/14/2024 18:09:15 07/06/19 25 05/14/2024 shonna r monit or No observ ation record ed. [address] (Medical Records) [address] [place] [address], [place], [address], 07/07/2024 10:28:27 07/20/19 25 05/14/2024 shonna r monit or No observ ation record ed. BARCODE Not Available 2024 14:33:04 Result Notes None recorded. Problems Name Problem SNOMED Code Status Onset Date Resolution Date Notes Provider Name and Address Organization Details Recorded Time Body mass index 25-29 - overweight 729847711 Active 2023 KINSEY Leblanc Attn: Cintia thompson,[address] [place], [address], [place] [facility] 4 14:54:14 Hyperlipide zainab 09627633 Active 2023 KINSEY Leblanc Attn: Cintia thompson,[address] [place], [address], [place] [facility] 4 12:55:08 Migraine 35360887 Active 2023 KINSEY Leblanc Attn: Cintia thompson,[address] [facility], [place], [address], [facility] - [facility] 4 12:55:10 Irritable bowel syndrome characteriz ed by constipatio n 077966088 Active 2023 KINSEY Leblanc Attn: Hugoboris thompson,[address] [facility], [place], [address], [facility] - [facility] 4 12:56:15 Feeling stressed 445036849 Active 2023 KINSEY Leblanc Attn: Cintia thompson,[address] [facility], [place], [address], [facility] - [facility] 4 12:56:24 Long-term drug therapy Active 2023 KINSEY Leblanc Attn: Hugoboris thompson,[address] [facility], [place], [address], [facility] - [facility] 4 12:56:40 Ganglion cyst of right wrist 6514501539885 09 Active 2024 KINSEY Leblanc Attn: Cintia thompson,[address] [facility], [place], [address], [facility] - [facility] 5 08:10:35 Problem Notes None recorded. Procedures Surgical History Date Name Laterality Status Provider Name and Address Organization Details Recorded Time section completed Buzz Morrow MA [facility] 10/25/2023 14:31:43 Imaging Results None recorded. Procedure Notes None recorded. Medical Equipment None Reported. Allergies Allergen ID Allergen Name Allergen Category Reaction Reaction Severity Criticality Documentation Date Start Date Code Code System Note Provider Name and Address Organization Details Recorded Time 274609 phentolam ine mesylate medicatio n Not available Not available Not available 10/25/2023 13091 0 RxNorm Buzz Morrow MA null, [place] - [facility] 4 14:27:24 095326 Reglan medicatio n Not available Not available Not available 10/25/2023 9230 RxNorm Buzz Morrow MA [facility], [place] - [facility] 14:27:21 Medications Name Sig Start Date Stop Date [...] Updated DateTime 5 165.1 cm 26.5 kg/m2 13992.1 9 g 100 % 100 % 113 /min 122 mm[Hg] 82 mm[Hg] Buzz Morrow [place] - [facility] 5 10:41:50 Date Recorded Systolic blood pressure Diastolic blood pressure Systolic blood pressure Diastolic blood pressure Provider Name and Address Organization Details Last Updated DateTime 10/25/2023 120 mm[Hg] 84 mm[Hg] 120 mm[Hg] 80 mm[Hg] KINSEY Leblanc Attn: Accounting ,[address] [facility], [place], [address] , [facility] 14:59:11 Date Recorded Body height Body mass index (BMI) Body weight Respiratory rate Oxygen saturation Oxygen saturation in Arterial blood by Pulse oximetry Heart rate Systolic blood pressure Diastolic blood pressure Provider Name and Address Organization Details Last Updated DateTime 165.1 cm 25.5 kg/m2 16998.9 2 g 20 /min 100 % 100 % 84 /min 128 mm[Hg] 88 mm[Hg] Buzz Morrow MA [facility] 14:33:40 Social History Question Answer Notes LastModified by Organizat ion Details LastModified Time Tobacco Smoking Status Never Smoker Buzz Morrow MA null, [facility] 10/25/2023 14:29:44 Do You Have An Advance Directive? No Information not available 10/25/2023 Are You Blind Or Do You Have Difficulty Seeing? No Glasses Information not available 10/25/2023 What Is Your Level Of Caffeine Consumption? Occasional Coffee, Soda Information not available 10/25/2023 In The 14 Days Before Symptom Onset, Have You Had Close Contact With A Laboratory-confir med COVID-19 While That Case Was Ill? No Information not available 10/25/2023 In The 14 Days Before Symptom Onset, Have You Had Close Contact With A Person Who Is Under Investigation For COVID-19 While That Person Was Ill? No Information not available 10/25/2023 Have You Been To An Area Known To Be High Risk For COVID-19? No Information not available 10/25/2023 Are You Deaf Or Do You Have Serious Difficulty Hearing? No Information not available 10/25/2023 What Type Of Diet Are You Following? REGULAR Information not available 10/25/2023 Are There Any [...] Been Provided? No Information not available 10/25/2023 Sex: Female Functional Status Question Answer Note LastModified by Organizat ion Details LastModified Time Do you use any illicit or recreational drugs? No Information not available 10/25/2023 Do you or have you ever used any other forms of tobacco or nicotine? No Information not available 10/25/2023 What is your level of alcohol consumption? None Information not available 10/25/2023 Are you currently employed? Yes Information not available 10/25/2023 Are you able to care for yourself? 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 Information not available 10/25/2023 What is your [...] mL 06/04/2020 completed DARYL Villanue[place], [place] [facility] 12/27/2023 13:12:56 Tdap 06/17/2019 completed Buzz Morrow [place] null, [place] [facility] 12/27/2023 13:12:56 Influenza, split virus, quadrivalent, PF 01/21/2020 completed DARYL [place], [place] [facility] 12/27/2023 13:12:56 Influenza, split virus, trivalent, PF 02/26/2024 completed KINSEY Leblanc Attn: Accounting,[address] [place], [address], [facility] - [facility] 03/28/2024 21:02:32 Past Encounters Encounter ID Performer Location Encounter Start Date Encounter Closed Date Diagnosis/Indication Diagnosis SNOMED-CT Code Diagnosis ICD10 Code Diagnosis Note [id number] Felice Bustamante MD [facility] [place] [address] [place] [address] 10/25/2023 14:15:53 10/25/2023 15:35:14 Body mass index 25-29 - overweight 744726446 Z68.25 Being is 25.5 Adult heal th examination 104554123 Z00.01 Annual wellness exam complete Persistent cough 2425847 02 R05.3 Patient reports 4 months of [...] a silent reflux drip and cough. Hyperlipidemia 85043160 E78.5 Patient is stable on rosuvastat in 5 mg daily and updated fasting lipid panel is due Migraine 62405318 G43.90 9 hx of failing: triptans, triptan nasal spray, topamax with side effects severe, and nsaid, and OCPs. ubrelvy works but still having > 14 headaches per month. Trial of qulipta 60mg daily. Long-term drug therapy 900392835 Z79.899 Labs ordered Nausea and vomiting 1693 1999 R11.2 Check amylase lipase, CMP and CBC and refer for ultrasound of the gallbladde r to evaluate nausea and vomiting Irritable bowel syndrome characterized by constipation 985877200 K58.1 Refill Linzess 145 mcg daily which has worked well for the patient in the past Diabetes m ellitus screening 089414416 Z13.1 A1c lab screening due for diabetes risk assessment Thyroid di sorder screening 188646172 Z13.29 Routine thyroid function panel ordered Feeling stressed 8234292 06 Z73.3 Prescripti on for p.r.n. alprazolam 0.25 mg twice daily as needed for breakthrou gh stress and anxiety [id number] Felice Bustamante MD [facility] [place] [address] [place] [address] 02/26/2024 10:52:05 02/26/2024 15:08:22 Administration of influenza vaccine 40214736 Z23 Tuberculos is screening 023137657 Z11.1 [id number] Felice Bustamante MD [facility] [address] [place] [address] 04/01/2024 10:21:37 04/01/2024 11:41:56 Ganglion cyst of right wrist 2065263825 78255 M67.431 Check ultrasound of the right wrist to evaluate and confirm presence of ganglion cyst and then refer to hand specialist Health Concerns Section Related Observation LastModified by Organization Detai ls LastModified Time None Recorded Concern Status LastModified by Organization Details LastModified Time None Recorded Advance Directives Directive N: Payers Insurance Date Sequence Insurance Name Policy Number Policy Craft Covered Member ID Craft Member ID Guarantor Name 04/08/2024 1 [employer] [id number] Ayde Coronel [id number] Ayde Coronel Notes Date Note Type Note [...] as-needed basis. KINSEY Leblanc Attn: Accounting[address] [place], [address], [place] [facility] 11/05/2023 12:57:58 5 text/html Musculoskeletal PainReported bypatient.Location:right arm Severity:worsening Duration:present <1 month Timing:constant Context:overuse Aggravating factors:movement/positioni ng Associated Symptoms:no fever; no weak limbs; no tinglingNotes:c\o growth on R lateral thumb area, noticed last week, having pains at times, is able to use it, Pt states that on Thursday she noticed some pain in her arm and she started holding it and noticed the nodule, States that it has progressively gotten worse pain radiates into her wrist/ forearm and down thumb She has had some numbness and tingling but the pain is the main issue. KINSEY Leblanc Attn: Accounting,[address] [place], [address], [place] [facility] 04/08/2024 08:11:29 OBGyn Episode No OBEpisode recorded.
--- OUTSIDE RECORDS SUMMARY | 2024-08-20 08:51 | XMS_ITS | Data Portability ---
Author Organization [facility], Main Office Address [address] [place] [address] Assessment No assessment recorded. Plan of Treatment Reminders Order Date Submit Date Provider Last Modified By Organization Details Last Modified Time Details Appointments None recorded. Lab TSH + free T4, serum 2022 023 [facility], [address], [place], [address], 3 12:52:29 T3, free, serum or plasma 2022 023 [facility], [address], [place], [address], 3 12:52:34 CBC w/ auto diff 2022 023 [facility], [address], [place], [address], 3 12:52:34 CMP, serum or plasma 2022 023 [facility], [address], [place], [address], 3 12:52:31 urinalysis complete, reflex culture 2022 023 [employer] [facility], [address], [place], [address], 3 12:52:35 vitamin B12 + folate, serum or blood 2022 023 [facility], [address], [place], [address], 3 12:52:37 lipid panel, serum 2022 023 [facility], [address], [place], [address], 3 12:52:30 vitamin D, 25-hydroxy, total, serum 2022 023 [facility], [address], [place], [address], 3 12:52:33 insulin, serum 2022 023 [facility], [address], [place], [address], 3 12:52:37 HbA1c (hemoglobin A1c), blood 2022 023 [facility], [address], [place], [address], 3 12:52:32 Referral None recorded. Procedures None recorded. Surgeries None recorded. Imaging XR, thoracic spine 2022 023 [facility] Not available 15:44:43 Medication Orders Ubrelvy 100 mg tablet 2022 023 [id number], [address] [place], [address], 11:46:29 Patient TargetsNo targets recorded. Patient InstructionsNo [...] (dete aurelia, gluli sine) . Not Available [employer] [address] [address] [place], [address], 10/17/2021 19:17:27 10/12/1910/17/2021 CORTI EDUARDO, TOTAL cortisol, total 14.7 mcg/d L normal Refer ence Range : For 8 a.m.( 7-9 a.m.) Speci men: 4.0-2 2.0 Refer ence Range : For 4 p.m.( 3-5 p.m.) Speci men: 3.0-1 7.0 * Pleas e inter pret above resul ts accor dingl y * Not Available [employer] [address] [place], [address], 10/17/2021 19:17:26 10/12/19 22 10/17/2021 EPSTE IN VELAZQUEZ VIRUS ANTIB JUJU PANEL ebv viral capsid Ag (vca) Ab (IgM) <36.00 U/mL normal U/mL Inter preta tion ---- ----- ----- ---- <36.0 0 Negat yolanda 36.00 -43.9 9 Equiv ocal >43.9 9 Posit yolanda Not Available [employer] [address] [address] [place], [address], 10/17/2021 19:17:25 10/12/1910/17/2021 EPSTE IN VELAZQUEZ VIRUS ANTIB JUJU PANEL ebv viral capsid Ag (vca) Ab (IgG) 284.00 U/mL high U/mL Inter preta tion ---- ----- ----- ---- <18.0 0 Negat yolanda 18.00 -21.9 9 Equiv ocal >21.9 9 Posit yolanda Not Available [address], [address], 10/17/2021 19:17:25 10/12/19 22 10/17/2021 EPSTE IN VELAZQUEZ VIRUS ANTIB JUJU PANEL ebv nuclear Ag (ebna) Ab (IgG) 295.00 U/mL high U/mL Inter preta tion ---- ----- ----- ---- <18.0 0 Negat yolanda 18.00 -21.9 9 Equiv ocal >21.9 9 Posit yolanda Not Available [address], [address], 10/17/2021 19:17:25 10/12/19 22 10/17/2021 EPSTE IN VELAZQUEZ VIRUS ANTIB JUJU PANEL interpretati on: Sugge stive of a past Epste in-Ba rr virus infec tion. In infan ts, a simil ar yamilkate rn may occur as a resul t of passi ve mater nal trans negrito of antib juju. Not Available [address], [address], 10/17/2021 19:17:25 10/12/19 22 10/17/2021 REFLE XIVE URINE CULTU RE reflexive urine culture NO CULTU RE INDIC ATED Not Available [address], [address], 10/17/2021 19:17:25 10/12/19 22 10/17/2021 URINA LYSIS , COMPL ETE W/REF TRUDY TO CULTU RE color yellow yellow normal Not Available [address], [address], 10/17/2021 19:17:24 10/12/19 22 10/17/2021 URINA LYSIS , COMPL ETE W/REF TRUDY TO CULTU RE appearance clear clear normal Not Available [address], [address], 10/17/2021 19:17:24 10/12/19 22 10/17/2021 URINA LYSIS , COMPL ETE W/REF TRUDY TO CULTU RE specific gravity 1.011 1.001- 1.035 normal Not Available [address], [address], 10/17/2021 19:17:24 10/12/19 22 10/17/2021 URINA LYSIS , COMPL ETE W/REF TRUDY TO CULTU RE pH 6.5 5.0-8. 0 normal Not Available [address], [address], 10/17/2021 19:17:24 10/12/19 22 10/17/2021 URINA LYSIS , COMPL ETE W/REF TRUDY TO CULTU RE glucose negati ve negati ve normal Not Available [address], [address], 10/17/2021 19:17:24 10/12/19 22 10/17/2021 URINA LYSIS , COMPL ETE W/REF TRUDY TO CULTU RE bilirubin negati ve negati ve normal Not Available [address], [address], 10/17/2021 19:17:24 10/12/19 22 10/17/2021 URINA LYSIS , COMPL ETE W/REF TRUDY TO CULTU RE ketones negati ve negati ve normal Not Available [address], [address], 10/17/2021 19:17:24 10/12/19 22 10/17/2021 URINA LYSIS , COMPL ETE W/REF TRUDY TO CULTU RE occult blood negati ve negati ve normal Not Available [address], [address], 10/17/2021 19:17:24 10/12/19 22 10/17/2021 URINA LYSIS , COMPL ETE W/REF TRUDY TO CULTU RE protein negati ve negati ve normal Not Available [address], [address], 10/17/2021 19:17:24 10/12/19 22 10/17/2021 URINA LYSIS , COMPL ETE W/REF TRUDY TO CULTU RE nitrite negati ve negati ve normal Not Available [address], [address], 10/17/2021 19:17:24 10/12/19 22 10/17/2021 URINA LYSIS , COMPL ETE W/REF TRUDY TO CULTU RE leukocyte esterase negati ve negati ve normal Not Available [address], [address], 10/17/2021 19:17:24 10/12/19 22 10/17/2021 URINA LYSIS , COMPL ETE W/REF TRUDY TO CULTU RE WBC none seen /hpf < or = 5 normal Not Available [address], [address], 10/17/2021 19:17:24 10/12/19 22 10/17/2021 URINA LYSIS , COMPL ETE W/REF TRUDY TO CULTU RE RBC none seen /hpf < or = 2 normal Not Available [address], [address], 10/17/2021 19:17:24 10/12/19 22 10/17/2021 URINA LYSIS , COMPL ETE W/REF TRUDY TO CULTU RE squamous epithelial cells none seen /hpf < or = 5 normal Not Available [address], [address], 10/17/2021 19:17:24 10/12/19 22 10/17/2021 URINA LYSIS , COMPL ETE W/REF TRUDY TO CULTU RE bacteria none seen /hpf none seen normal Not Available [address], [address], 10/17/2021 19:17:24 10/12/19 22 10/17/2021 URINA LYSIS , COMPL ETE W/REF TRUDY TO CULTU RE hyaline cast none seen /lpf none seen normal Not Available [address], [address], 10/17/2021 19:17:24 10/12/19 22 10/17/2021 CBC (INCL UDES DIFF/ PLT) white blood cell count 5.7 thous and/u L 3.8-10 .8 normal Not Available [address], [address], 10/17/2021 19:17:23 10/12/19 22 10/17/2021 CBC (INCL UDES DIFF/ PLT) red blood cell count 4.73 elbert on/uL 3.80-5 .10 normal Not Available [address], [address], 10/17/2021 19:17:23 10/12/19 22 10/17/2021 CBC (INCL UDES DIFF/ PLT) hemoglobin 14.2 g/dL 11.7-1 5.5 normal Not Available [address], [address], 10/17/2021 19:17:23 10/12/19 22 10/17/2021 CBC (INCL UDES DIFF/ PLT) hematocrit 42.8 % 35.0-4 5.0 normal Not Available [address], [address], 10/17/2021 19:17:23 10/12/19 22 10/17/2021 CBC (INCL UDES DIFF/ PLT) MCV 90.5 fL 80.0-1 00.0 normal Not Available [address], [address], 10/17/2021 19:17:23 10/12/19 22 10/17/2021 CBC (INCL UDES DIFF/ PLT) MCH 30.0 pg 27.0-3 3.0 normal Not Available [address], [address], 10/17/2021 19:17:23 10/12/19 22 10/17/2021 CBC (INCL UDES DIFF/ PLT) MCHC 33.2 g/dL 32.0-3 6.0 normal Not Available [address], [address], 10/17/2021 19:17:23 10/12/19 22 10/17/2021 CBC (INCL UDES DIFF/ PLT) RDW 11.9 % 11.0-1 5.0 normal Not Available [address], [address], 10/17/2021 19:17:23 10/12/19 22 10/17/2021 CBC (INCL UDES DIFF/ PLT) platelet count 271 thous and/u L 140-40 0 normal Not Available [address], [address], 10/17/2021 19:17:23 10/12/19 22 10/17/2021 CBC (INCL UDES DIFF/ PLT) MPV 9.6 fL 7.5-12 .5 normal Not Available [address], [address], 10/17/2021 19:17:23 10/12/19 22 10/17/2021 CBC (INCL UDES DIFF/ PLT) absolute neutrophils 3574 cells /uL 1500-7 800 normal Not Available [address], [address], 10/17/2021 19:17:23 10/12/19 22 10/17/2021 CBC (INCL UDES DIFF/ PLT) absolute lymphocytes 1562 cells /uL 850-39 00 normal Not Available [address], [address], 10/17/2021 19:17:23 10/12/19 22 10/17/2021 CBC (INCL UDES DIFF/ PLT) absolute monocytes 393 cells /uL 200-95 0 normal Not Available [address], [address], 10/17/2021 19:17:23 10/12/19 22 10/17/2021 CBC (INCL UDES DIFF/ PLT) absolute eosinophils 143 cells /uL 15-500 normal Not Available [address], [address], 10/17/2021 19:17:23 10/12/19 22 10/17/2021 CBC (INCL UDES DIFF/ PLT) absolute basophils 29 cells /uL 0-200 normal Not Available [address], [address], 10/17/2021 19:17:23 10/12/19 22 10/17/2021 CBC (INCL UDES DIFF/ PLT) neutrophils 62.7 % normal Not Available [address], [address], 10/17/2021 19:17:23 10/12/19 22 10/17/2021 CBC (INCL UDES DIFF/ PLT) lymphocytes 27.4 % normal Not Available [address], [address], 10/17/2021 19:17:23 10/12/19 22 10/17/2021 CBC (INCL UDES DIFF/ PLT) monocytes 6.9 % normal Not Available [address], [address], 10/17/2021 19:17:23 10/12/19 22 10/17/2021 CBC (INCL UDES DIFF/ PLT) eosinophils 2.5 % normal Not Available [address], [address], 10/17/2021 19:17:23 10/12/19 22 10/17/2021 CBC (INCL UDES DIFF/ PLT) basophils 0.5 % normal Not Available [address], [address], 10/17/2021 19:17:23 10/12/19 22 10/17/2021 THYRO ID PEROX IDASE ANTIB ODIES thyroid peroxidase antibodies 1 IU/mL <9 normal Not Available [address], [address], 10/17/2021 19:17:23 10/12/19 22 10/17/2021 T3 REVER [...] for clini elisabeth purpo ses. Not Available [address], [address], 10/17/2021 19:17:22 10/12/19 22 10/17/2021 T3, TOTAL T3, total 105 NG/dL 76-181 normal Not Available [employer] [address], [address], 10/17/2021 19:17:21 10/12/19 22 10/17/2021 T3, FREE T3, free 3.3 pg/mL 2.3-4. 2 normal Not Available [employer] [address] [place], [address], 10/17/2021 19:17:21 10/12/19 22 10/17/2021 T4 (THYR OXINE ), TOTAL T4 (thyroxine), total 8.2 mcg/d L 5.1-11 .9 normal Not Available [facility] [address] [place], [address], 10/17/2021 19:17:20 10/12/19 22 10/17/2021 HEMOG LOBIN [...] Diabe isra(A DA). Not Available [facility] [address] [address], [place], [address], 10/17/2021 19:17:20 10/12/1910/17/2021 COMPR EHENS YOLANDA METAB OLIC PANEL glucose 97 mg/dL 65-99 normal Fasti ng refer ence inter ann-marie Not Available [facility] [address] [place], [address], 10/17/2021 19:17:19 10/12/19 22 10/17/2021 COMPR EHENS YOLANDA METAB OLIC PANEL urea nitrogen (BUN) 9 mg/dL 7-25 normal Not Available [address], [address], 10/17/2021 19:17:19 10/12/19 22 10/17/2021 COMPR EHENS YOLANDA METAB OLIC PANEL creatinine 0.77 mg/dL 0.50-0 .97 normal Not Available [address], [address], 10/17/2021 19:17:19 10/12/19 22 10/17/2021 COMPR EHENS [...] kdoqi /gfr% 5Fcal culat or Not Available [address], [address], 10/17/2021 19:17:19 10/12/19 22 10/17/2021 COMPR EHENS YOLANDA METAB OLIC PANEL BUN/creatini ne ratio not applic able (calc ) 6-22 Not Available [address], [address], 10/17/2021 19:17:19 10/12/19 22 10/17/2021 COMPR EHENS YOLANDA METAB OLIC PANEL sodium 137 mmol/ L 135-14 6 normal Not Available [address], [address], 10/17/2021 19:17:19 10/12/19 22 10/17/2021 COMPR EHENS YOLANDA METAB OLIC PANEL potassium 4.1 mmol/ L 3.5-5. 3 normal Not Available [address], [address], 10/17/2021 19:17:19 10/12/19 22 10/17/2021 COMPR EHENS YOLANDA METAB OLIC PANEL chloride 102 mmol/ L 98-110 normal Not Available [address], [address], 10/17/2021 19:17:19 10/12/19 22 10/17/2021 COMPR EHENS YOLANDA METAB OLIC PANEL carbon dioxide 31 mmol/ L 20-32 normal Not Available [address], [address], 10/17/2021 19:17:19 10/12/19 22 10/17/2021 COMPR EHENS YOLANDA METAB OLIC PANEL calcium 9.4 mg/dL 8.6-10 .2 normal Not Available [address], [address], 10/17/2021 19:17:19 10/12/19 22 10/17/2021 COMPR EHENS YOLANDA METAB OLIC PANEL protein, total 7.1 g/dL 6.1-8. 1 normal Not Available [address], [address], 10/17/2021 19:17:19 10/12/19 22 10/17/2021 COMPR EHENS YOLANDA METAB OLIC PANEL albumin 4.7 g/dL 3.6-5. 1 normal Not Available [address], [address], 10/17/2021 19:17:19 10/12/19 22 10/17/2021 COMPR EHENS YOLANDA METAB OLIC PANEL globulin 2.4 g/dL_ (calc ) 1.9-3. 7 normal Not Available [address], [address], 10/17/2021 19:17:19 10/12/19 22 10/17/2021 COMPR EHENS YOLANDA METAB OLIC PANEL albumin/glob ulin ratio 2.0 (calc ) 1.0-2. 5 normal Not Available [address], [address], 10/17/2021 19:17:19 10/12/19 22 10/17/2021 COMPR EHENS YOLANDA METAB OLIC PANEL bilirubin, total 0.5 mg/dL 0.2-1. 2 normal Not Available [address], [address], 10/17/2021 19:17:19 10/12/19 22 10/17/2021 COMPR EHENS YOLANDA METAB OLIC PANEL alkaline phosphatase 69 U/L 31-125 normal Not Available [address], [address], 10/17/2021 19:17:19 10/12/19 22 10/17/2021 COMPR EHENS YOLANDA METAB OLIC PANEL AST 20 U/L 10-30 normal Not Available [address], [address], 10/17/2021 19:17:19 10/12/19 22 10/17/2021 COMPR EHENS YOLANDA METAB OLIC PANEL ALT 12 U/L 6-29 normal Not Available [address], [address], 10/17/2021 19:17:19 10/12/19 22 10/17/2021 LIPID PANEL , STAND MAGI cholesterol, total 242 mg/dL <200 high Not Available [address], [address], 10/17/2021 19:17:19 10/12/19 22 10/17/2021 LIPID PANEL , STAND MAGI HDL cholesterol 56 mg/dL > or = 50 normal Not Available [address], [address], 10/17/2021 19:17:19 10/12/19 22 10/17/2021 LIPID PANEL , STAND MAGI triglyceride s 133 mg/dL <150 normal Not Available [facility] [address] [place], [address], 10/17/2021 19:17:19 10/12/19 22 10/17/2021 LIPID PANEL [...] 310(1 9): 2061- 2068 (http ://ed ucati on[employer]. com/f aq/FA Q164) Not Available [address], [address], 10/17/2021 19:17:19 10/12/19 22 10/17/2021 LIPID PANEL , STAND MAGI chol/HDLC ratio 4.3 (calc ) <5.0 normal Not Available [facility] [address] [place] [address], [address], 10/17/2021 19:17:19 10/12/19 22 10/17/2021 LIPID PANEL , STAND MAGI non HDL cholesterol 186 mg/dL _(elisabeth c) <130 high For patie nts with diabe isra plus 1 major ASCVD risk facto r, treat ing to a non-H DL-C goal of <100 mg/dL (LDL- C of <70 mg/dL ) is consi dered a thera peuti c optio n. Not Available [address], [address], 10/17/2021 19:17:19 10/12/1910/17/2021 TSH+F REE T4 TSH 1.94 mIU/L normal Refer ence Range > or = 20 Years 0.40- 4.50 Pregn festus Range s First trime ster 0.26- 2.66 Secon d trime ster 0.55- 2.73 Third trime ster 0.43- 2.91 Not Available [address], [address], 10/17/2021 19:17:17 10/12/1910/17/2021 TSH+F REE T4 T4, free 1.2 NG/dL 0.8-1. 8 normal Not Available [address], [address], 10/17/2021 19:17:17 10/01/1910/01/2022 TSH+F REE T4 TSH 1.48 mIU/L normal Refer ence Range > or = 20 Years 0.40- 4.50 Pregn festus Range s First trime ster 0.26- 2.66 Secon d trime ster 0.55- 2.73 Third trime ster 0.43- 2.91 Not Available [address], [address], 10/01/2022 12:52:29 10/01/19 23 10/01/2022 TSH+F REE T4 T4, free 1.1 NG/dL 0.8-1. 8 normal Not Available [facility] [address], [address], 10/01/2022 12:52:29 10/01/19 23 10/01/2022 LIPID PANEL WITH RATIO S cholesterol, total 271 mg/dL <200 high Not Available [address], [address], 10/01/2022 12:52:30 10/01/19 23 10/01/2022 LIPID PANEL WITH RATIO S HDL cholesterol 54 mg/dL > or = 50 normal Not Available [facility] [address] [place] [address], [address], 10/01/2022 12:52:30 10/01/19 23 10/01/2022 LIPID PANEL WITH RATIO S triglyceride s 173 mg/dL <150 high Not Available [employer] [address], [address], 10/01/2022 12:52:30 10/01/1910/01/2022 LIPID PANEL WITH RATIO [...] 2061- 2068 (http ://ed ucati on[employer]. com/f aq/FA Q164) Not Available [employer] [address], [address], 10/01/2022 12:52:30 10/01/1910/01/2022 LIPID PANEL WITH RATIO S chol/HDLC ratio 5.0 (calc ) <5.0 high Not Available [employer] [address], [address], 10/01/2022 12:52:30 10/01/19 23 10/01/2022 LIPID PANEL WITH RATIO S LDL/HDL ratio 3.4 (calc ) Below avera ge Risk: <2.34 [place] ge Risk: 2.35- 4.12 Moder ate Risk: 4.13- 5.56 High Risk: >5.57 Not Available [address], [address], 10/01/2022 12:52:30 10/01/1910/01/2022 LIPID PANEL WITH RATIO S non HDL cholesterol 217 mg/dL _(elisabeth c) <130 high For patie nts with diabe isra plus 1 major ASCVD risk facto r, treat ing to a non-H DL-C goal of <100 mg/dL (LDL- C of <70 mg/dL ) is consi grey a pam peuti c optio n. Not Available [address], [address], 10/01/2022 12:52:30 10/01/19 23 10/01/2022 COMPR EHENS YOLANDA METAB OLIC PANEL glucose 98 mg/dL 65-99 normal Fasti ng refer ence inter ann-marie Not Available [address] [address] [place], [address], 10/01/2022 12:52:31 10/01/1910/01/2022 COMPR EHENS YOLANDA METAB OLIC PANEL urea nitrogen (BUN) 9 mg/dL 7-25 normal Not Available [address], [address], 10/01/2022 12:52:31 10/01/19 23 10/01/2022 COMPR EHENS YOLANDA METAB OLIC PANEL creatinine 0.81 mg/dL 0.50-0 .97 normal Not Available [address], [address], 10/01/2022 12:52:31 10/01/19 23 10/01/2022 COMPR EHENS [...] kdoqi /gfr% 5Fcal culat or Not Available [address], [address], 10/01/2022 12:52:31 10/01/19 23 10/01/2022 COMPR EHENS YOLANDA METAB OLIC PANEL BUN/creatini ne ratio NOT APPLIC ABLE (calc ) 6-22 Not Available [address], [address], 10/01/2022 12:52:31 10/01/19 23 10/01/2022 COMPR EHENS YOLANDA METAB OLIC PANEL sodium 136 mmol/ L 135-14 6 normal Not Available [address], [address], 10/01/2022 12:52:31 10/01/19 23 10/01/2022 COMPR EHENS YOLANDA METAB OLIC PANEL potassium 4.7 mmol/ L 3.5-5. 3 normal Not Available [address], [address], 10/01/2022 12:52:31 10/01/19 23 10/01/2022 COMPR EHENS YOLANDA METAB OLIC PANEL chloride 102 mmol/ L 98-110 normal Not Available [address], [address], 10/01/2022 12:52:31 10/01/19 23 10/01/2022 COMPR EHENS YOLANDA METAB OLIC PANEL carbon dioxide 29 mmol/ L 20-32 normal Not Available [address], [address], 10/01/2022 12:52:31 10/01/19 23 10/01/2022 COMPR EHENS YOLANDA METAB OLIC PANEL calcium 10.0 mg/dL 8.6-10 .2 normal Not Available [facility] [address] [place], [address], 10/01/2022 12:52:31 10/01/19 23 10/01/2022 COMPR EHENS YOLANDA METAB OLIC PANEL protein, total 7.4 g/dL 6.1-8. 1 normal Not Available [address], [address], 10/01/2022 12:52:31 10/01/19 23 10/01/2022 COMPR EHENS YOLANDA METAB OLIC PANEL albumin 4.9 g/dL 3.6-5. 1 normal Not Available [address], [address], 10/01/2022 12:52:31 10/01/19 23 10/01/2022 COMPR EHENS YOLANDA METAB OLIC PANEL globulin 2.5 g/dL_ (calc ) 1.9-3. 7 normal Not Available [address], [address], 10/01/2022 12:52:31 10/01/19 23 10/01/2022 COMPR EHENS YOLANDA METAB OLIC PANEL albumin/glob ulin ratio 2.0 (calc ) 1.0-2. 5 normal Not Available [address], [address], 10/01/2022 12:52:31 10/01/19 23 10/01/2022 COMPR EHENS YOLANDA METAB OLIC PANEL bilirubin, total 0.6 mg/dL 0.2-1. 2 normal Not Available [address], [address], 10/01/2022 12:52:31 10/01/19 23 10/01/2022 COMPR EHENS YOLANDA METAB OLIC PANEL alkaline phosphatase 73 U/L 31-125 normal Not Available [facility] [employer] [address], [address], 10/01/2022 12:52:31 10/01/19 23 10/01/2022 COMPR EHENS YOLANDA METAB OLIC PANEL AST 24 U/L 10-30 normal Not Available [facility] [address] [place], [address], 10/01/2022 12:52:31 10/01/19 23 10/01/2022 COMPR EHENS YOLANDA METAB OLIC PANEL ALT 18 U/L 6-29 normal Not Available [facility] [address] [place], [address], 10/01/2022 12:52:31 10/01/19 23 10/01/2022 HEMOG LOBIN [...] Diabe isra(A DA). Not Available [facility] [address] [address] [place], [address], 10/01/2022 12:52:32 10/01/19 23 10/01/2022 VITAM IN [...] /MS is recom harsh d: order code 11896 (susan ents >2yrs ). See Note 1 Note 1 For addit ional infor jan reece refer to http: //[facility] les Alvarez [employer].c om/fa q/FAQ 199 (This link is being provi ded for infor abraham castro/ gilmar wilkerson purpo ses only. ) Not Available [employer] [address], [address], 10/01/2022 12:52:33 10/01/19 23 10/01/2022 T3, FREE T3, free 3.3 pg/mL 2.3-4. 2 normal Not Available [employer] [address], [address], 10/01/2022 12:52:33 10/01/1910/01/2022 CBC (INCL UDES DIFF/ PLT) white blood cell count 5.3 thous and/u L 3.8-10 .8 normal Not Available [employer] [address], [address], 10/01/2022 12:52:34 10/01/19 23 10/01/2022 CBC (INCL UDES DIFF/ PLT) red blood cell count 5.08 elbert on/uL 3.80-5 .10 normal Not Available [employer] [address], [address], 10/01/2022 12:52:34 07/28/20 23 10/01/2022 CBC (INCL UDES DIFF/ PLT) hemoglobin 15.1 g/dL 11.7-1 5.5 normal Not Available [address], [address], 10/01/2022 12:52:34 10/01/19 23 10/01/2022 CBC (INCL UDES DIFF/ PLT) hematocrit 45.5 % 35.0-4 5.0 high Not Available [address], [address], 10/01/2022 12:52:34 10/01/19 23 10/01/2022 CBC (INCL UDES DIFF/ PLT) MCV 89.6 fL 80.0-1 00.0 normal Not Available [address], [address], 10/01/2022 12:52:34 10/01/19 23 10/01/2022 CBC (INCL UDES DIFF/ PLT) MCH 29.7 pg 27.0-3 3.0 normal Not Available [address], [address], 10/01/2022 12:52:34 10/01/19 23 10/01/2022 CBC (INCL UDES DIFF/ PLT) MCHC 33.2 g/dL 32.0-3 6.0 normal Not Available [address], [address], 10/01/2022 12:52:34 10/01/19 23 10/01/2022 CBC (INCL UDES DIFF/ PLT) RDW 13.0 % 11.0-1 5.0 normal Not Available [address], [address], 10/01/2022 12:52:34 10/01/19 23 10/01/2022 CBC (INCL UDES DIFF/ PLT) platelet count 316 thous and/u L 140-40 0 normal Not Available [facility] [address] [place], [address], 10/01/2022 12:52:34 10/01/19 23 10/01/2022 CBC (INCL UDES DIFF/ PLT) MPV 10.2 fL 7.5-12 .5 normal Not Available [address], [address], 10/01/2022 12:52:34 10/01/19 23 10/01/2022 CBC (INCL UDES DIFF/ PLT) absolute neutrophils 3360 cells /uL 1500-7 800 normal Not Available [address], [address], 10/01/2022 12:52:34 10/01/19 23 10/01/2022 CBC (INCL UDES DIFF/ PLT) absolute lymphocytes 1526 cells /uL 850-39 00 normal Not Available [address], [address], 10/01/2022 12:52:34 10/01/19 23 10/01/2022 CBC (INCL UDES DIFF/ PLT) absolute monocytes 360 cells /uL 200-95 0 normal Not Available [address], [address], 10/01/2022 12:52:34 10/01/19 23 10/01/2022 CBC (INCL UDES DIFF/ PLT) absolute eosinophils 32 cells /uL 15-500 normal Not Available [facility] [address], [address], 10/01/2022 12:52:34 10/01/19 23 10/01/2022 CBC (INCL UDES DIFF/ PLT) absolute basophils 21 cells /uL 0-200 normal Not Available [facility] [address] [place], [address], 10/01/2022 12:52:34 10/01/19 23 10/01/2022 CBC (INCL UDES DIFF/ PLT) neutrophils 63.4 % normal Not Available [address], [address], 10/01/2022 12:52:34 10/01/19 23 10/01/2022 CBC (INCL UDES DIFF/ PLT) lymphocytes 28.8 % normal Not Available [address], [address], 10/01/2022 12:52:34 10/01/19 23 10/01/2022 CBC (INCL UDES DIFF/ PLT) monocytes 6.8 % normal Not Available [address], [address], 10/01/2022 12:52:34 10/01/19 23 10/01/2022 CBC (INCL UDES DIFF/ PLT) eosinophils 0.6 % normal Not Available [address], [address], 10/01/2022 12:52:34 10/01/19 23 10/01/2022 CBC (INCL UDES DIFF/ PLT) basophils 0.4 % normal Not Available [address], [address], 10/01/2022 12:52:34 10/01/19 23 10/01/2022 URINA LYSIS , COMPL ETE W/REF TRUDY TO CULTU RE color YELLOW yellow normal Not Available [address], [address], 10/01/2022 12:52:35 10/01/19 23 10/01/2022 URINA LYSIS , COMPL ETE W/REF TRUDY TO CULTU RE appearance CLEAR clear normal Not Available [facility] [address], [address], 10/01/2022 12:52:35 10/01/19 23 10/01/2022 URINA LYSIS , COMPL ETE W/REF TRUDY TO CULTU RE specific gravity 1.017 1.001- 1.035 normal Not Available [address], [address], 10/01/2022 12:52:35 10/01/19 23 10/01/2022 URINA LYSIS , COMPL ETE W/REF TRUDY TO CULTU RE pH 7.0 5.0-8. 0 normal Not Available [address], [address], 10/01/2022 12:52:35 10/01/19 23 10/01/2022 URINA LYSIS , COMPL ETE W/REF TRUDY TO CULTU RE glucose NEGATI VE negati ve normal Not Available [address], [address], 10/01/2022 12:52:35 10/01/19 23 10/01/2022 URINA LYSIS , COMPL ETE W/REF TRUDY TO CULTU RE bilirubin NEGATI VE negati ve normal Not Available [address], [address], 10/01/2022 12:52:35 10/01/19 23 10/01/2022 URINA LYSIS , COMPL ETE W/REF TRUDY TO CULTU RE ketones NEGATI VE negati ve normal Not Available [address], [address], 10/01/2022 12:52:35 10/01/19 23 10/01/2022 URINA LYSIS , COMPL ETE W/REF TRUDY TO CULTU RE occult blood NEGATI VE negati ve normal Not Available [address], [address], 10/01/2022 12:52:35 10/01/19 23 10/01/2022 URINA LYSIS , COMPL ETE W/REF TRUDY TO CULTU RE protein NEGATI VE negati ve normal Not Available [address] [place], [address], 10/01/2022 12:52:35 10/01/19 23 10/01/2022 URINA LYSIS , COMPL ETE W/REF TRUDY TO CULTU RE nitrite NEGATI VE negati ve normal Not Available [address] [address] [place], [address], 10/01/2022 12:52:35 10/01/19 23 10/01/2022 URINA LYSIS , COMPL ETE W/REF TRUDY TO CULTU RE leukocyte esterase NEGATI VE negati ve normal Not Available [address], [address], 10/01/2022 12:52:35 10/01/19 23 10/01/2022 URINA LYSIS , COMPL ETE W/REF TRUDY TO CULTU RE WBC NONE SEEN /hpf < or = 5 normal Not Available [address] [address] [place], [address], 10/01/2022 12:52:35 10/01/19 23 10/01/2022 URINA LYSIS , COMPL ETE W/REF TRUDY TO CULTU RE RBC NONE SEEN /hpf < or = 2 normal Not Available [address] [address] [place], [address], 10/01/2022 12:52:35 10/01/19 23 10/01/2022 URINA LYSIS , COMPL ETE W/REF TRUDY TO CULTU RE squamous epithelial cells 0-5 /hpf < or = 5 Not Available [address] [address] [place], [address], 10/01/2022 12:52:35 10/01/19 23 10/01/2022 URINA LYSIS , COMPL ETE W/REF TRUDY TO CULTU RE bacteria NONE SEEN /hpf none seen normal Not Available [address] [address] [place], [address], 10/01/2022 12:52:35 10/01/19 23 10/01/2022 URINA LYSIS , COMPL ETE W/REF TRUDY TO CULTU RE hyaline cast NONE SEEN /lpf none seen normal Not Available [address], [address], 10/01/2022 12:52:35 10/01/19 23 10/01/2022 URINA LYSIS , COMPL ETE W/REF TRUDY TO CULTU RE note This urine was lincoln zed for the prese nce of WBC, RBC, bacte nerissa, casts , and other forme d eleme nts. Only those eleme nts seen were repor yen. Not Available [address], [address], 10/01/2022 12:52:35 10/01/19 23 10/01/2022 REFLE XIVE URINE CULTU RE reflexive urine culture NO CULTU RE INDIC ATED Not Available [address], [address], 10/01/2022 12:52:36 10/01/19 23 10/01/2022 VITAM IN B12/F OLATE , SERUM PANEL vitamin B12 518 pg/mL 200-11 00 normal Not Available [address], [address], 10/01/2022 12:52:37 10/01/19 23 10/01/2022 VITAM IN B12/F OLATE , SERUM PANEL folate, serum 12.4 NG/mL normal Refer ence Range Low: <3.4 Borde rline : 3.4-5 .4 María l: >5.4 Not Available [address], [address], 10/01/2022 12:52:37 10/01/19 23 10/01/2022 INSUL IN [...] Diagn ostic s in 2021. Not Available [employer] [facility] [address] [address], [place], [address], 10/01/2022 12:52:37 04/21/19 23 04/21/2022 XR, chest , 2 view No observ ation record ed. [id number] [facility] [address], [place], [address], 05/04/2022 17:45:32 09/22/1909/21/2022 XR, thora cic spine No observ ation record ed. [email or web address] [facility] [address] [place], [address], 10/06/2022 14:04:50 Result Notes None recorded. Problems Name Problem SNOMED Code Status Onset Date Resolution Date Notes Provider Name and Address Organization Details Recorded Time Acute bronchitis 17902284 Active 2022 Not Available [facility] 3 17:44:06 Abnormal weight gain 161790605 Active Not Available [facility] 3 17:44:06 Body mass index 25-29 - overweight 467259581 Active Not Available [facility] 3 17:44:06 Liver enzymes outside reference range 715007215 Active Not Available [facility] 3 17:44:06 Chronic constipation 120591585 Active Not Available [facility] 3 17:44:06 Poor concentration 20459092 Active Not Available [facility] 3 17:44:06 Vitamin D deficiency 78801126 Active Not Available [facility] 3 17:44:06 Pain of multiple joints 74093725 Active Not Available [facility] 3 17:44:06 Migraine 97505493 Active 2021 Not Available [facility] 3 17:44:06 Postviral cough 412302018 Active 2022 Not Available [facility] 3 17:44:06 Cough 26600139 Active 2022 Not Available [facility] 3 17:44:06 Hyperlipidemi a 96425676 Active 2021 Not Available [facility] 3 17:44:06 Migraine without aura 55581189 Active Not Available [facility] 3 17:44:06 Muscle fatigue 69257577 Active Not Available [facility] 3 17:44:07 Hyperinsulini sm 90942325 Active 2021 Not Available [facility] 3 17:44:07 COVID-19 460283369 Active 2021 Not Available [facility] 3 17:44:07 Fatigue 73971606 Active Not Available [facility] 3 17:44:07 Weight gain 1597182 Active 2021 Not Available [facility] 3 17:44:07 Herpes zoster 9092667 Active 2022 KINSEY Leblanc [address], [address] [facility] [place], [place], [address] , [employer] 3 10:59:19 Thoracic back pain 602750817 Active 2022 KINSEY Leblanc [address], [address], [place], [address] , [employer] 3 11:45:30 Mixed hyperlipidemi a 686747680 Active 2022 KINSEY Leblanc [address], [address], [place], [address] , [employer] 3 12:57:13 Problem Notes None recorded. Procedures Surgical History Date Name Laterality Status Provider Name and Address Organization Details Recorded Time 0 section completed Not Available [facility] 05/04/2022 17:42:59 7 dilation and curettage completed Not Available [facility] 05/04/2022 17:42:59 3 PROFESSIONAL [employer] Procedure completed Not Available [facility] 2022 17:42:59 Imaging Results None recorded. Procedure Notes None recorded. Medical Equipment None Reported. Allergies Allergen ID Allergen Name Allergen Category Reaction Reaction Severity Criticality Documentation Date Start Date Code Code System Note Provider Name and Address Organization Details Recorded Time 44730 Reglan medicatio n itching mild Not available 05/04/2022 9230 RxNorm Not Available [facility] 17:45:27 Medications Name Sig Start Date Stop [...] Not Available Not Available No t Available Jun[facility] FE 03/25 (28) 1 mg-20 mcg (21)/75 mg [...] % 90 /min 16 /min 97.8 [degF] 31710.6 3 g Not Available [facility] 3 17:43:39 Date Recorded Body mass index (BMI) Body height Oxygen saturation Oxygen saturation in Arterial blood by Pulse oximetry Heart rate Respiratory rate Body temperature Body weight Systolic blood pressure Diastolic blood pressure Systolic blood pressure Diastolic blood pressure Provider Name and Address Organization Details Last Updated DateTime 2 27.7 kg/m2 164.47 cm 96 % 96 % 111 /min 16 /min 98.3 [degF] 68790.4 6 g 122 mm[Hg] 80 mm[Hg] 110 mm[Hg] 80 mm[Hg] Not Available [facility] 3 17:43:36 Date Recorded Body height Body mass index (BMI) Body weight Body temperature Heart rate Oxygen saturation Oxygen saturation in Arterial blood by Pulse oximetry Systolic blood pressure Diastolic blood pressure Provider Name and Address Organization Details Last Updated DateTime 3 164.47 cm 29.2 kg/m2 35732.0 7 g 97.8 [degF] 109 /min 98 % 98 % 122 mm[Hg] 78 mm[Hg] Cassia Brody RN [place] - [facility] [employer] 3 11:18:05 Social History Question Answer Notes LastModified by Organizat ion Details LastModified Time Tobacco Smoking Status Never Smoker Not Available [facility] 05/04/2022 17:42:49 Do You Have An Advance Directive? No [id number] Information not available 05/04/2022 What Is Your Level Of Caffeine Consumption? Occasional [id number].[id number] 3012 Information not available 05/04/2022 In The 14 Days Before Symptom Onset, Have You Had Close Contact With A Laboratory-confirm ed COVID-19 While That Case Was Ill? No MIGRATION.183015 8001 Information not available 05/04/2022 In The 14 Days Before Symptom Onset, Have You Had Close Contact With A Person Who Is Under Investigation For COVID-19 While That Person Was Ill? No MIGRATION.[id number] 0753 Information not available 05/04/2022 What Type Of Diet Are You Following? REGULAR MIGRATION.697320 7382 Information not available 05/04/2022 Have There Been Any Changes To Your Family Or Social Situation? No MIGRATION.911633 5220 Information not available 05/04/2022 Are There Any Guns Present In Your Home? Yes MIGRATION.524649 8280 Information not available 05/04/2022 Do You Have A Medical Power Of Wind Farm Operations Manager? No MIGRATION.018979 7140 Information not available 05/04/2022 What Is Your Relationship Status? Single MIGRATION.928696 9396 Information not available 05/04/2022 Do You Use Your Seat Belt Or Car Seat Routinely? Yes MIGRATION.426132 1989 Information not available 05/04/2022 Do You Have Smoke And Carbon Monoxide Detectors In Your Home? Yes MIGRATION.352347 8024 Information not available 05/04/2022 Do You Use Sunscreen Routinely? Yes MIGRATION.797563 6806 Information not available 05/04/2022 Have You Recently Traveled Abroad? No MIGRATION.005998 4218 Information not available 05/04/2022 Do You Have Any Dietary Restrictions? No MIGRATION.518993 6936 Information not available 05/04/2022 Sex: Unknown Functional Status Question Answer Note LastModified by Organizat ion Details LastModified Time Do you use any illicit or recreational drugs? No MIGRATION.9808710 026 Information not available 05/04/2022 Do you or have you ever used any other forms of tobacco or nicotine? No MIGRATION.4279284 026 Information not available 05/04/2022 What is your level of alcohol consumption? 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 Moderate MIGRATION.6285639 026 Information not available 05/04/2022 Mental Status None recorded. Family History Relationship Description Onset Age of this Age Resolved Age Notes LastModified by Organization Details LastModified Time Mother Hypertensive disorder MIGRATION.102 [id number] Not available 05/04/2022 17:43:00 Paternal Uncle Antiphosphol ipid syndrome MIGRATION.154 [id number] Not available 05/04/2022 17:43:00 Paternal Uncle Lupus erythematosu s MIGRATION.592 [id number] Not available 05/04/2022 17:43:00 Maternal Grandmother Rheumatoid arthritis MIGRATION.163 0253601 Not available 05/04/2022 17:43:00 Maternal Grandmother Alzheimer's disease MIGRATION.565 1985681 Not available 05/04/2022 17:43:00 Maternal Grandmother Malignant tumor of thyroid gland MIGRATION.816 1464783 Not available 05/04/2022 17:43:00 Maternal Grandfather Diabetes mellitus MIGRATION.805 3418383 Not available 05/04/2022 17:43:00 Maternal Grandfather Heart disease MIGRATION.309 0355969 Not available 05/04/2022 17:43:00 Maternal Grandfather Malignant tumor of colon MIGRATION.395 [id number] Not available 05/04/2022 17:43:00 Paternal Grandfather Peripheral arterial occlusive disease MIGRATION.549 [id number] Not available 05/04/2022 17:43:00 Paternal Grandfather Myocardial infarction MIGRATION.785 1090489 Not available 05/04/2022 17:43:00 Maternal Aunt Multiple sclerosis MIGRATION.535 [id number] Not available 05/04/2022 17:43:00 Unspecified Relation Hyperlipidem ia MIGRATION.225 [id number] Not available 05/04/2022 17:43:00 Medical History Condition Response SKIN PROBLEMS Y ULCERS Y HEADACHES/MIGRAINES Y BACK / NECK PROBLEMS Y DIZZINESS Y Gynecological History Statement/Question Response Date of Last Pap 12/09/2015 Obstetrics History GPAL:G 0 P 0 0 0 0 Immunizations Vaccine Type Date Status Note Provider Nam e and Address Organization Details Recorded Time influenza, unspecified formulation 5 completed Not Available [facility] 05/04/2022 17:45:26 Past Encounters Encounter ID Performer Location Encounter Start Date Encounter Closed Date Diagnosis/Indication Diagnosis SNOMED-CT Code Diagnosis ICD10 Code Diagnosis Note [id number] Felice Bustamante MD [facility] [place] [address] [place] [address] 06/30/2021 00:00:00 07/01/2021 21:54:27 [id number] KINSEY Leblanc [facility] [place] [address] [place] [address] 04/21/2022 00:00:00 05/01/2022 22:23:14 [id number] KINSEY Leblanc [facility] [place] [address] [place] [address] 09/08/2022 11:09:49 09/08/2022 11:48:45 Adult health examination 327731508 Z00.01 annual wellness completed. lab orders given Hyperlipidemia 17810074 E78.5 fasting lipids due Hyperinsulinism 19962378 E16.1 fasting insulin due Migraine without aura 56 214771 G43.009 refill Ubrelvy 100mg Vitamin D deficiency 347 04171 E55.9 vit d lab due Chronic constipation 236 878954 K59.09 dietary managed at this time. keep fluids and fiber on board Long-term drug therapy 751954902 Z79.899 cbc, cmp, ua and b12, folate ordered Thyroid di sorder screening 730507746 Z13.29 Thyroid labs due Diabetes m ann screening 285960512 Z13.1 diabetes screening due Thoracic back pain 00619 8004 M54.6 check xray tspine Health Concerns Section Related Observation LastModified by Organization Detai ls LastModified Time None Recorded Concern Status LastModified by Organization Details LastModified Time None Recorded Advance Directives Directive N: Payers Insurance Date Sequence Insurance Name Policy Number Policy Craft Covered Member ID Craft Member ID Guarantor Name 10/04/2022 1 [facility] (O) [id number] Ayde Coronel [id number] Ayde Coronel 08/23/2022 [facility] Ayde Coronel SELF SELF Ayde Coronel Notes Date Note Type Note Provider Name and Address Organization Details Recorded Time 2 text/html HyperlipidemiaReported bypatient.Duration:chronic Control:usually well controlled Compliance:compliant; compliant with diet; exercises Complications:no coronary artery disease; no peripheral artery disease; no cardiovascular disease Not Available [employer] 07/01/2021 21:54:27 3 text/html CoughReported bypatient.Quality:loose; non [...] nasal drip;shortness of breath(exertion);nasal discharge Not Available [employer] 05/01/2022 22:23:14 3 text/html HyperlipidemiaReported bypatient.Control:usually well controlled; improving; at goal Compliance:compliant; compliant with diet; exercises Complications:no coronary artery disease; no peripheral artery disease; no cardiovascular disease wellnessc/o lingering nerve pain from shingles Lupis Delgado PA [address] [facility] [facility] [address], [place], [address], [facility] 10/03/2022 22:14:17 OBGyn Episode No OBEpisode recorded.
--- OUTSIDE RECORDS SUMMARY | 2024-08-20 08:51 | XMS_ITS | Referral Summary ---
Author Organization [facility] [address] [facility] Address [address] [place] [address] Care Team Providers Care Communications And Signals Supervisor Name Role Phone Lupis Delgadomohan [facility] Primary Care Pr ovider Shukri Law MD Unavailable [phone] Eric Mohr MD Unavailable [phone] Allergies Active Allergy Reactions Criticality Noted Date [...] elevated blood pressures at home. Normotensive in [facility] with normal labs complicated by [...] of Binge Drinking Not on file 12/06 Mulberry Depression Scale Answer Date Recorded Mulberry Depression Scale Total 2 09/02/2019 The thought of harming myself has occurred to me . Never 09/02/2019 Comments No Sex and Gender Information Value Date Recorded Sex Assigned at Female 01/04/2024 10:50 AM CDT Legal Sex Female 8:31 AM GAS MAIN [employer]TER HELPER Gender Identity Female 01/04/2024 10:50 AM CDT Sexual Orientation Straight 02/07/2019 9: 13 AM GAS MAIN FITTER HELPER Last Filed Vital Signs Vital Sign Reading Time Taken Comments Blood Pressure 136/88 01/04/2024 10:44 AM CDT Pulse 91 04/06/2022 11:26 AM GAS MAIN FITTER HELPER Temperature 36.8 C (98.2 F) 04/06/2022 11:26 AM GAS MAIN FITTER HELPER Respiratory Rate 20 04/06/2022 11:2 6 AM GAS MAIN FITTER HELPER Oxygen Saturation 99% 04/06/2022 11: 26 AM GAS MAIN FITTER HELPER Inhaled Oxygen Concentration - - Weight 75.2 kg (165 lb 12.8 oz) 024 10:44 AM CDT Height 165.1 cm (5' 5) 01/04/2024 10:4 4 AM CDT Body Mass Index 27.59 01/04/2024 10:44 AM CDT Plan of Treatment Not on file Procedures Procedure Name Priority Date/Time Associated Diagnosis Comments HIGH RISK HPV DNA DETECTION WITH GENOTYPING Routine 01/04/2024 11:46 AM CDT Cervical cancer screening HEPATITIS C AB W/REFL TO HCV RNA, QN, PCR (REFL) Routine 01/01/2019 11:49 AM CDT from Last 3 Months or Most Recently Relevant to Health Maintenance Results * High Risk HPV DNA Detection with Genotyping (Molecular component) (01/04/2024 11:46 AM CDT) HPV HR 16 Not Detected Not Detected [facility] HPV HR 18 Not Detected Not Detected [facility] HPV HR Non 16/18 Not Detected Not Detected [facility] Comment: Interpretive Data Nucleic acid amplification for [...] this test have been verified by the [facility] Molecular Infectious Disease laboratory. Correlate with [...] FLUIDS AND STO OLS ORDERABLES Final Result [facility] Department [place] [address] [facility] * HEPATITIS C AB W/REFL [...] file for you. Please contact a client technologies analyst if you would like additional testing done on this patient or contact your consumer sales representative to obtain a client custom reflex testing authorization request form. SIGNAL TO CUT-OFF 0.01 <1.00 [facility] [place] Comment: HCV antibody was non-reactive. There is no laboratory evidence of HCV infection. In most cases, no further action is required. However, if recent HCV exposure is suspected, a test for HCV RNA (test code 49719) is suggested. For additional information please refer to http://education.[employer]/faq/YBT60n8 (This link is being provided for informational/ educational purposes only.) 01/01/2019 11:4 9 AM CDT 01/01/2019 11:50 AM CDT Narrative Resulting Agency Comment Performing Organization Information: Site ID: [place] Name: [facility] Address: [address] [place] [address] Director: Ming Tay D.O., MPH Marce [facility] BLOOD ORDERABLES Final Result [facility] [place] from Last 3 Months or Most Recently Relevant to Health Maintenance Insurance [employer] OPEN ACCESS [employer] Advance Directives For more information, please contact: [phone] * Full Code (Latest Code Status on File) Date Activated Date Inactivated Comments 07/19/2019 12:49 PM 07/23/2019 7:46 PM * Full Code Date Activated Date Inactivated Comments 07/17/2019 7:57 PM 07/19/2019 12:49 PM Care Teams Communications And Signals Supervisor Relationship Specialty Start Date End Date Lupis Delgado PA PCP - General Physician [place] [employer] 12/10/18 Shukri Law MD 12/10/18 Eric Mohr MD [address] [place] [address] Consulting Physician Rheumatology 12/10/18
--- OUTSIDE RECORDS SUMMARY | 2024-08-20 08:51 | XMS_ITS | Clinical Summary ---
Author Organization [facility] [address] [facility] Address [address] [place] [id number] Care Team Providers Care Atm Technician Name Role Phone Lupis Delgadomohan [facility] Primary Care Pr ovider Shukri Law MD Unavailable [phone] Eric Mohr MD Unavailable [phone] Allergies Active Allergy Reactions Criticality Noted Date [...] 06/17/2019 Surgical History Surgery Date Site/Laterality Comments AL DILATION & CURETTAGE DX&/ THER NONOBSTETRIC Dilation And Curettage - (Added by TW Conv) AL ENDOMETRIAL BX W/WO ENDOCERVIX BX W/O DILAT [...] Mother High choleste rol - (Added by Conv) Hypertension Mother Family history of hypertension - (Added by Conv) Multiple sclerosis Mother's Sister Family history of multiple sclerosis - (Added by Conv) Heart attack Paternal Grandfather Family history of myocardial infarction - (Added by Conv) Heart disease Paternal Grandfather Family history of cardiac disorder - (Added by Conv) Relation Name Status Comments Father Alive [...] of Binge Drinking Not on file 12/06 Pindall Depression Scale Answer Date Recorded P[place]all Depression Scale Total 2 09/02/2019 The thought of harming myself has occurred to me . Never 09/02/2019 Comments No Sex and Gender Information Value Date Recorded Sex Assigned at Female 01/04/2024 10:50 AM CDT Legal Sex Female 8:31 AM [employer] Gender Identity Female 01/04/2024 10:50 AM CDT Sexual Orientation Straight 02/07/2019 9: 13 AM [employer] Obstetrics History Para Term AB IAB SAB Ectopic Multiple Livin g Live Births 2 1 0 1 0 0 0 0 0 1 1 Date Outcome GA Total Labor Labor/2nd/3rd Weight Sex Type Anes PTL Amina A1 A5 Name Clin 2019 33w 6d 0h 02m 0h 02m 2.25 kg (4 lb 15.4 oz) F CS-LT ranv Spinal N Livin g 6 6 REZNA CK,GI RLCRY Cassia Fabian MD Complications:None Delivery Location:[facility] Main C ampus ([facility] L AND D PROCEDURE) Comments 2019-AV- S/p pLTCS for preec lampsia with severe featuresBaby girl in NICU, just CPAP Last Filed Vital Signs Vital Sign Reading Time Taken Comments Blood Pressure 136/88 01/04/2024 10:44 AM CDT Pulse 91 04/06/2022 11:26 AM [employer] Temperature 36.8 C (98.2 F) 04/06/2022 11:26 AM [employer] Respiratory Rate 20 04/06/2022 11:2 6 AM [employer] Oxygen Saturation 99% 04/06/2022 11: 26 AM [employer] Inhaled Oxygen Concentration - - Weight 75.2 [...] 2023-2 5 season) 2023 06/04/2020 Influenza Vaccine (Season Ended) 2024 03/04/2021, 01/21/2020, 03/06/2014 Cervical Cancer Screening 01/03/20252023, 01/04/2024 [...] Genotyping (Molecular component) (01/04/2024 11:46 AM CDT) Pathologist [facility] [place] HPV HR 16 Not Detected Not Detected [facility] HPV HR 18 Not Detected Not Detected [facility] HPV HR Non 16/18 Not Detected Not Detected [facility] Comment: Interpretive Data Nucleic acid [...] this test have been verified by the [facility] Molecular Infectious Disease laboratory. Correlate with separately reported cytology results, as applicable. Interpretive data last revised 22 Endocervical 01/04/2024 11:4 6 AM CDT 01/05/2024 9:09 AM CDT Narrative [facility] - 01/05/2024 8:20 PM CDT Clinical history and diagnosis->screening Number of vials->1 Testing type->Screening Last menstrual period (date if known)->12/19/23 Menstrual status->Irregular us Jaylyn Gibbs MD LAB BODY FLUIDS AND STO OLS ORDERABLES Final Result [facility] Department [place] [address] [facility] * HEPATITIS C AB W/REFL TO HCV RNA, QN, PCR (REFL) (01/01/2019 11:49 AM CDT) Pathologist [facility] Hep C Ab NON-REACT YOLANDA NON-REACT YOLANDA [facility] [place] Comment: Our records indicate that you have ordered a client custom reflex order code. Only the initial test was performed because we do not have a client custom reflex testing authorization request form on file for you. Please contact a client services manager if you would like additional testing done on this patient or contact your electric motors salesperson to obtain a client custom reflex testing authorization request form. SIGNAL TO CUT-OFF 0.01 <1.00 [facility] [place] Comment: HCV antibody was non-reactive. There is no laboratory evidence of HCV infection. In most cases, no further action is required. However, if recent HCV exposure is suspected, a test for HCV RNA (test code 30097) is suggested. For additional information please refer to http://education.[employer]/faq/BIO09z0 (This link is being provided for informational/ educational purposes only.) 01/01/2019 11:4 9 AM CDT 01/01/2019 11:50 AM CDT Narrative Resulting Agency Comment Performing Organization Information: Site ID: [id number] Name: [facility] Address: [address] [place] [address] Director: Ming Tay D.O., MPH Marce EUC[facility]A LAB BLOOD ORDERABLES Final Result [facility] from Last 3 Months or Most Recently Relevant to [place] [address] [employer] [place] [employer] [place] [employer] OPEN ACCESS [employer] OOS Advance Directives For more information, please contact: [phone] * Full Code (Latest Code Status on File) Date Activated Date Inactivated Comments 07/19/2019 12:49 PM 07/23/2019 7:46 PM * Full Code Date Activated Date Inactivated Comments 07/17/2019 7:57 PM 07/19/2019 12:49 PM Care Teams Atm Technician Relationship Specialty Start Date End Date Lupis Delgado PA PCP - General Physician Logger [employer]orses 12/10/18 Shukri Law MD 12/10/18 Eric Mohr MD [address] [place] [address] Consulting Physician Rheumatology 12/10/18
--- NOTE | 2024-08-20 09:08 | ECHO_ITS ---
Patient Info Name: Ayde Coronel Age: 39 years : 1985 Gender: Female Ht: 65 in Wt: 150 lbs BSA: 1.78 m2 HR: 77 bpm BP: 117 / 86 mmHg Technical Quality: Excellent Exam Date: 08/20/2024 9:17 AM Patient Status: O Admit Date: 08/20/2024 Exam Type: CA echo doppler color flow Complete two-dimensional, color flow and Doppler transthoracic echocardiogram is performed. Welding Rod Coater: Cyndee Gabriel Attending Provider: Ronald Gallegos DO Summary 1. Complete two-dimensional, color flow and Doppler transthoracic echocardiogram is performed. 2. Left ventricular chamber dimension is normal. 3. Left ventricular systolic function is normal, estimated at 60-65. 4. The left ventricular diastolic function is grade I diastolic dysfunction. 5. E/e' 5 is not elevated. Left Ventricle E/e' 5 is not elevated. Left ventricular chamber dimension is normal. Left ventricular systolic function is normal, estimated at 60-65. The left ventricular diastolic function is grade I diastolic dysfunction. Right Ventricle Right ventricular chamber dimension is normal. Right ventricular systolic function is normal. Left Atria Left atrial chamber dimension is normal. Right Atria Right atrial chamber dimension is normal. Aortic Valve The aortic valve is trileaflet. There is no aortic valve stenosis. There is no aortic valve regurgitation. Pulmonic Valve There is no pulmonic regurgitation. Mitral Valve There is no mitral valve stenosis. There is no mitral valve regurgitation. Tricuspid Valve There is no tricuspid valve regurgitation. Pericardium/Pleural There is no pericardial effusion. Inferior Vena Cava Normal inferior vena cava with >50% collapse upon inspiration consistent with normal right atrial pressure, 5 mmHg. Aorta The aortic root size at the sinus of Valsalva is normal. Left Ventricular Outflow Tract Name Value Normal LVOT 2D LVOT Diameter 2.0 cm LVOT Doppler LVOT Peak Velocity 106 cm/s LVOT Peak Gradient 4 mmHg LVOT Mean Gradient 2 mmHg LVOT VTI 24 cm LVOT VTI/AV VTI Ratio 0.7 LVOT Stroke Volume 73 ml LVOT CO 5.5 l/min LVOT CI 3.1 l/min/m2 Pulmonic Valve Name Value Normal RVOT Doppler RVOT Peak Velocity 53 cm/s RVOT Peak Gradient 1 mmHg PV Doppler PV Peak Velocity 68 cm/s PV Peak Gradient 2 mmHg Mitral Valve Name Value Normal MV Diastolic Function MV E Peak Velocity 71 cm/s MV A Peak Velocity 86 cm/s MV E/A 0.8 MV Decel Time (PW) 163 ms MV Annular TDI MV E/e' (Septal) 7.4 MV E/e' (Lateral) 4.5 MV E/e' (Average) 5.9 Tricuspid Valve Name Value Normal Estimated PAP/RSVP RA Pressure 5 mmHg <=5 Aortic Valve Name Value Normal AV Doppler AV Peak Velocity 128 cm/s AV Peak Gradient 7 mmHg AV Mean Gradient 4 mmHg AV VTI 31 cm AV Area (Cont Eq VTI) 2.3 cm2 >=3.0 AV Area (Cont Eq Best) 2.6 cm2 AV DI (Best) 0.83 AV Regurgitation 2D LVOT Area 3.1 cm2 Ventricles Name Value Normal LV Dimensions 2D/MM IVS Diastolic Thickness (2D) 0.7 cm 0.6-1.0 LVID Diastole (2D) 4.3 cm 3.8-5.2 LVIW Diastolic Thickness (2D) 0.7 cm 0.6-0.9 LVID Systole (2D) 2.9 cm 2.2-3.5 LVOT Diameter 2.0 cm LV Mass (2D Cubed) 92.32 g 67.00-162.00 LV Mass Index (2D Cubed) 52 g/m2 43-95 Relative Wall Thickness (2D) 0.34 <=0.42 LV Fractional Shortening/Ejection Fraction 2D/MM LV Fractional Shortening (2D) 32 % 27-45 LV EF (2D Teichholz) 61 % LV Diastolic Volume (4C MOD) 67 ml LV EF (4C MOD) 59 % LV Diastolic Volume (2C MOD) 84 ml LV EF (2C MOD) 74 % LV Diastolic Volume (BP MOD) 75 ml 46-106 LV Diastolic Volume Index (BP MOD) 42 ml/m2 29-61 LV Systolic Volume (BP MOD) 25 ml 14-42 LV Systolic Volume Index (BP MOD) 14 ml/m2 8-24 LV EF (BP MOD) 66 % 54-74 LV Diastolic Length (4C) 8.4 cm LV Systolic Length (4C) 6.7 cm LV Stroke Volume (4C MOD) 39 ml Atria Name Value Normal LA Dimensions LA Volume (4C A-L) 29 ml LA Volume (BP A-L) 36 ml RA Dimensions RA Systolic Major [place] Length (4C) 4.0 cm 2.2-2.8 RA Area (4C) 9.8 cm2 <=18.0 Report Signatures
== END 2024-08-20 08:33 | disposition home or self-care (01) ==
LOC: ANHCARD 08:35
PROVIDERS: PCP Physician Assistant; Visit Provider Internal Medicine Cardiovascular Disease
DX: R07.9 Chest pain, unspecified (principal); R55 Syncope and collapse
CPT/HCPCS: 93017; 93306